=== PATIENT | male | born 1975 | race Hispanic/Latino ===

== ENCOUNTER 2018-03-11 18:42 | Inpatient (IN) | payer MEDICAID ==
[2018-03-11] MEDS ORDERED: NACL 0.9% 500 ML 500 ML IV ONE (19:15)
[2018-03-11 20:03] LABS: Hematocrit 32.8 % (35.5-45.6); Hemoglobin 10.9 gm/dl (11.8-15.2); Mean Corpuscular HGB Conc 33 % (32-34); Mean Corpuscular Volume 74 fl (84-94); Platelet Count 343 K/mm3 (140-440); Red Blood Count 4.46 M/mm3 (3.65-5.03)
[2018-03-11 20:12] LABS: Mean Corpuscular Hemoglobin 24 pg (28-32)
[2018-03-11 20:15] LABS: INR 1.03 (0.87-1.13)
--- NOTE | 2018-03-11 20:28 | Emergency Department Report ---
ED Fever HPI - General Chief Complaint: Fever Stated Complaint: FEVER Time Seen by Provider: 03/11/18 20:27 Source: patient Exam Limitations: no limitations - History of Present Illness Timing/Duration: this afternoon Fever Severity/Quality: greater than 100.5 F Associated Symptoms: cough ED Review of Systems ROS: Stated complaint: FEVER Other details as noted in HPI Comment: All other systems reviewed and negative Constitutional: denies: chills, fever Eyes: denies: eye pain, eye discharge, vision change ENT: denies: ear pain, throat pain Respiratory: denies: cough, shortness of breath, wheezing Cardiovascular: denies: chest pain, palpitations Endocrine: no symptoms reported Gastrointestinal: denies: abdominal pain, nausea, diarrhea Genitourinary: denies: urgency, dysuria Musculoskeletal: denies: back pain, joint swelling, arthralgia Skin: denies: rash, lesions Neurological: denies: headache, weakness, paresthesias Psychiatric: denies: anxiety, depression Hematological/Lymphatic: denies: easy bleeding, easy bruising ED Past Medical Hx - Past Medical History Hx Congestive Heart Failure: No Hx Diabetes: No Hx Liver Disease: Yes Hx Seizures: No Hx Asthma: No Hx COPD: No Hx Dementia: No Additional medical history: spine cancer, Chronic Wounds left leg, hips and sacrum - Surgical History Additional Surgical History: 3 back surg per pt. - Social History Smoking Status: Current Every Day Smoker - Medications Home Medications: Home Medications Medication Instructions Recorded Confirmed Last Taken Type Cyclobenzaprine [Flexeril] 10 mg PO 02/01/15 02/01/15 Unknown History Gabapentin [Neurontin] 300 mg PO BID 02/01/15 02/01/15 Unknown History Oxycodone HCl [Roxicodone TAB] 30 mg PO 02/01/15 02/01/15 Unknown History Oxycodone HCl/Acetaminophen 02/01/15 02/01/15 Unknown History [Percocet 10/325 mg] Ciprofloxacin HCl [Ciprofloxacin 500 mg PO Q12H #20 tab 02/27/18 Unknown Rx TAB] Clindamycin [Clindamycin CAP] 300 mg PO Q8H #30 cap 02/27/18 Unknown Rx Ondansetron [Zofran Odt] 4 mg PO Q8HR PRN #14 tab.rapdis 02/27/18 Unknown Rx traMADol [Ultram] 50 mg PO Q6HR PRN #14 tablet 02/27/18 Unknown Rx ED Physical Exam - General Limitations: No Limitations General appearance: alert, in no apparent distress - Head Head exam: Present: atraumatic, normocephalic - Eye Eye exam: Present: normal appearance - ENT ENT exam: Present: normal exam, mucous membranes moist - Neck Neck exam: Present: normal inspection - Respiratory Respiratory exam: Present: normal lung sounds bilaterally. Absent: respiratory distress - Cardiovascular Cardiovascular Exam: Present: regular rate, normal rhythm. Absent: systolic murmur, diastolic murmur, rubs, gallop - GI/Abdominal GI/Abdominal exam: Present: soft, normal bowel sounds - Rectal Rectal exam: Present: deferred - Extremities Exam Extremities exam: Present: normal inspection, other (Left foot ulcer.) - Back Exam Back exam: Present: normal inspection, other (Stage 3 sacral decubitus ulcer.) - Neurological Exam Neurological exam: Present: alert, oriented X3 - Psychiatric Psychiatric exam: Present: normal affect, normal mood - Skin Skin exam: Present: warm, dry, intact, normal color. Absent: rash ED Course Vital Signs 03/11/18 03/11/18 03/11/18 19:09 19:40 19:46 Temperature 101.3 F H Pulse Rate 109 H 110 H 75 Respiratory 24 22 19 Rate Blood Pressure 98/60 118/70 O2 Sat by Pulse 90 97 Oximetry 03/11/18 03/11/18 03/11/18 20:00 20:16 20:30 Temperature Pulse Rate 70 101 H 73 Respiratory 23 24 22 Rate Blood Pressure 126/73 118/70 132/77 O2 Sat by Pulse 100 97 99 Oximetry 03/11/18 03/11/18 03/11/18 20:46 21:00 21:16 Temperature Pulse Rate 93 H 93 H 97 H Respiratory 25 H 25 H 26 H Rate Blood Pressure 132/77 122/74 122/74 O2 Sat by Pulse 100 100 99 Oximetry 03/11/18 03/11/18 03/11/18 21:30 21:46 22:00 Temperature Pulse Rate 84 69 Respiratory Rate Blood Pressure 110/72 110/72 110/72 O2 Sat by Pulse 97 97 95 Oximetry 03/11/18 22:16 Temperature Pulse Rate 101 H Respiratory 14 Rate Blood Pressure 109/73 O2 Sat by Pulse 91 Oximetry ED Medical Decision Making - Lab Data Result diagrams: 03/11/18 19:40 03/11/18 19:40 Lab Results 03/11/18 03/11/18 03/11/18 Range/Units 19:40 19:40 19:40 WBC 7.1 (4.5-11.0) K/mm3 RBC 4.46 (3.65-5.03) M/mm3 Hgb 10.9 L (11.8-15.2) gm/dl Hct 32.8 L (35.5-45.6) % MCV 74 L (84-94) fl MCH 24 L (28-32) pg MCHC 33 (32-34) % RDW 18.0 H (13.2-15.2) % Plt Count 343 (140-440) K/mm3 Add Manual Diff Complete Total Counted 100 Seg Neuts % (Manual) 77.0 H (40.0-70.0) % Band Neutrophils % 0 % Lymphocytes % (Manual) 11.0 L (13.4-35.0) % Reactive Lymphs % (Man) 0 % Monocytes % (Manual) 12.0 H (0.0-7.3) % Eosinophils % (Manual) 0 (0.0-4.3) % Basophils % (Manual) 0 (0.0-1.8) % Metamyelocytes % 0 % Myelocytes % 0 % Promyelocytes % 0 % Blast Cells % 0 % Nucleated RBC % Not Reportable Seg Neutrophils # Man 5.5 (1.8-7.7) K/mm3 Band Neutrophils # 0.0 K/mm3 Lymphocytes # (Manual) 0.8 L (1.2-5.4) K/mm3 Abs React Lymphs (Man) 0.0 K/mm3 Monocytes # (Manual) 0.9 H (0.0-0.8) K/mm3 Eosinophils # (Manual) 0.0 (0.0-0.4) K/mm3 Basophils # (Manual) 0.0 (0.0-0.1) K/mm3 Metamyelocytes # 0.0 K/mm3 Myelocytes # 0.0 K/mm3 Promyelocytes # 0.0 K/mm3 Blast Cells # 0.0 K/mm3 WBC Morphology Not Reportable Hypersegmented Neuts Not Reportable Hyposegmented Neuts Not Reportable Hypogranular Neuts Not Reportable Smudge Cells Not Reportable Toxic Granulation Not Reportable Toxic Vacuolation Not Reportable Dohle Bodies Not Reportable Pelger-Huet Anomaly Not Reportable Jon Rods Not Reportable Platelet Estimate Not Reportable Clumped Platelets Not Reportable Plt Clumps, EDTA Not Reportable Large Platelets Not Reportable Giant Platelets Not Reportable Platelet Satelliting Not Reportable Plt Morphology Comment Not Reportable RBC Morphology Normal Dimorphic RBCs Not Reportable Polychromasia Not Reportable Hypochromasia Not Reportable Poikilocytosis Not Reportable Anisocytosis Not Reportable Microcytosis Not Reportable Macrocytosis Not Reportable Spherocytes Not Reportable Pappenheimer Bodies Not Reportable Sickle Cells Not Reportable Target Cells Not Reportable Tear Drop Cells Not Reportable Ovalocytes Not Reportable Helmet Cells Not Reportable [place] Bodies Not Reportable [place] Rings Not Reportable Ana Cells Not Reportable Bite Cells Not Reportable Crenated Cell Not Reportable Elliptocytes Not Reportable Acanthocytes (Spur) Not Reportable Rouleaux Not Reportable Hemoglobin C Crystals Not Reportable Schistocytes Not Reportable Malaria parasites Not Reportable Jamal Bodies Not Reportable Hem Pathologist Commnt No PT 13.9 (12.2-14.9) Sec. INR 1.03 (0.87-1.13) POC ABG pH (7.35-7.45) POC ABG pCO2 (35-45) POC ABG pO2 (80-105) POC ABG HCO3 POC ABG Total CO2 POC ABG O2 Sat POC ABG Base Excess VBG pH (7.320-7.420) FiO2 % Sodium 133 L (137-145) mmol/L Potassium 4.0 (3.6-5.0) mmol/L Chloride 99.1 (98-107) mmol/L Carbon Dioxide 20 L (22-30) mmol/L Anion Gap 18 mmol/L BUN 11 (9-20) mg/dL Creatinine 0.5 L (0.8-1.5) mg/dL Estimated GFR > 60 ml/min BUN/Creatinine Ratio 22 % Glucose 96 (75-100) mg/dL Lactic Acid (0.7-2.0) mmol/L Calcium 8.7 (8.4-10.2) mg/dL Total Bilirubin 0.20 (0.1-1.2) mg/dL AST 26 (5-40) units/L ALT 18 (7-56) units/L Alkaline Phosphatase 130 H (35-129) units/L Total Protein 7.5 (6.3-8.2) g/dL Albumin 3.6 L (3.9-5) g/dL Albumin/Globulin Ratio 0.9 % 03/11/18 03/11/18 03/11/18 Range/Units 19:40 19:40 22:52 WBC (4.5-11.0) K/mm3 RBC (3.65-5.03) M/mm3 Hgb (11.8-15.2) gm/dl Hct (35.5-45.6) % MCV (84-94) fl MCH (28-32) pg MCHC (32-34) % RDW (13.2-15.2) % Plt Count (140-440) K/mm3 Add Manual Diff Total Counted Seg Neuts % (Manual) (40.0-70.0) % Band Neutrophils % % Lymphocytes % (Manual) (13.4-35.0) % Reactive Lymphs % (Man) % Monocytes % (Manual) (0.0-7.3) % Eosinophils % (Manual) (0.0-4.3) % Basophils % (Manual) (0.0-1.8) % Metamyelocytes % % Myelocytes % % Promyelocytes % % Blast Cells % % Nucleated RBC % Seg Neutrophils # Man (1.8-7.7) K/mm3 Band Neutrophils # K/mm3 Lymphocytes # (Manual) (1.2-5.4) K/mm3 Abs React Lymphs (Man) K/mm3 Monocytes # (Manual) (0.0-0.8) K/mm3 Eosinophils # (Manual) (0.0-0.4) K/mm3 Basophils # (Manual) (0.0-0.1) K/mm3 Metamyelocytes # K/mm3 Myelocytes # K/mm3 Promyelocytes # K/mm3 Blast Cells # K/mm3 WBC Morphology Hypersegmented Neuts Hyposegmented Neuts Hypogranular Neuts Smudge Cells Toxic Granulation Toxic Vacuolation Dohle Bodies Pelger-Huet Anomaly Jon Rods Platelet Estimate Clumped Platelets Plt Clumps, EDTA Large Platelets Giant Platelets Platelet Satelliting Plt Morphology Comment RBC Morphology Dimorphic RBCs Polychromasia Hypochromasia Poikilocytosis Anisocytosis Microcytosis Macrocytosis Spherocytes Pappenheimer Bodies Sickle Cells Target Cells Tear Drop Cells Ovalocytes Helmet Cells [place] Bodies [place] Rings Ana Cells Bite Cells Crenated Cell Elliptocytes Acanthocytes (Spur) Rouleaux Hemoglobin C Crystals Schistocytes Malaria parasites Jamal Bodies Hem Pathologist Commnt PT (12.2-14.9) Sec. INR (0.87-1.13) POC ABG pH 7.303 L (7.35-7.45) POC ABG pCO2 31.3 L (35-45) POC ABG pO2 154 H (80-105) POC ABG HCO3 15.5 POC ABG Total CO2 16 POC ABG O2 Sat 99 POC ABG Base Excess -11 VBG pH 7.395 (7.320-7.420) FiO2 100 % Sodium (137-145) mmol/L Potassium (3.6-5.0) mmol/L Chloride (98-107) mmol/L Carbon Dioxide (22-30) mmol/L Anion Gap mmol/L BUN (9-20) mg/dL Creatinine (0.8-1.5) mg/dL Estimated GFR ml/min BUN/Creatinine Ratio % Glucose (75-100) mg/dL Lactic Acid 1.30 (0.7-2.0) mmol/L Calcium (8.4-10.2) mg/dL Total Bilirubin (0.1-1.2) mg/dL AST (5-40) units/L ALT (7-56) units/L Alkaline Phosphatase (35-129) units/L Total Protein (6.3-8.2) g/dL Albumin (3.9-5) g/dL Albumin/Globulin Ratio % - EKG Data -: EKG Interpreted by Wy EKG shows normal: sinus rhythm Rate: normal (93) - EKG Data When compared to previous EKG there are: previous EKG unavailable Interpretation: nonspecific ST-T wave osile 03/11/18 22:57 No STEMI. - Radiology Data Radiology results: report reviewed, image reviewed CXR is negative. Critical care attestation.: If time is entered above; I have spent that time in minutes in the direct care of this critically ill patient, excluding procedure time. 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
[2018-03-11 20:32] LABS: Alanine Aminotransferase 18 units/L (7-56); Albumin 3.6 g/dL (3.9-5); BUN/Creatinine Ratio 22; Blood Urea Nitrogen 11 mg/dL (9-20); Calcium 8.7 mg/dL (8.4-10.2); Hemolysis Index 26
[2018-03-11] MEDS ORDERED: NACL 0.9% 1000 ML 1,000 ML IV ONE ×2 (20:46)
[2018-03-11 20:56] LABS: Basophils % (Manual) 0 % (0.0-1.8); Eosinophils % (Manual) 0 % (0.0-4.3); Total Cells Counted 100
[2018-03-11 20:57] LABS: RBC Morphology Normal
[2018-03-11] MEDS ORDERED: ZOSYN/NS 3.375GM/50ML 3.375 GM/50 ML BAG IV ONE (21:00)
--- NOTE | 2018-03-11 21:20 | XRay Report ---
FINAL REPORT EXAM: XR CHEST 1V AP HISTORY: possible Sepsis TECHNIQUE: AP portable view of the chest. PRIORS: None. FINDINGS: The cardiomediastinal silhouette appears normal. The lungs are clear. The bones and soft tissues are unremarkable. IMPRESSION: No evidence of acute cardiopulmonary disease.
[2018-03-11] MEDS ORDERED: MORPHINE IV ONE (21:59)
[2018-03-11] MEDS ORDERED: VANCOMYCIN/NS 1 GM/250 ML 1 GM/250 ML BAG IV ONE (22:00)
[2018-03-11] MEDS ORDERED: ZOFRAN IV ONE (22:03)
[2018-03-11] MEDS ORDERED: ZOFRAN ONE (22:04)
[2018-03-11] MEDS ORDERED: MORPHINE ONE (22:05)
[2018-03-11] MEDS ORDERED: PROVENTIL IH ONE (22:55)
[2018-03-11] MEDS ORDERED: AMBIEN PO PRN (23:40)
[2018-03-11] MEDS ORDERED: SODIUM CHLORIDE FLUSH SYRINGE 10 ML IV PRN (23:40)
[2018-03-11] MEDS ORDERED: TYLENOL PO PRN (23:40)
[2018-03-11] MEDS ORDERED: ZOFRAN IV PRN (23:40)
--- NOTE | 2018-03-11 23:40 | XRay Report ---
FINAL REPORT EXAM: XR CHEST 1V AP HISTORY: dypnea and hypoxia TECHNIQUE: AP portable view of the chest. PRIORS: Chest x-ray performed earlier on the same day FINDINGS: The cardiomediastinal silhouette appears normal. The lungs are clear. The bones and soft tissues are unremarkable. IMPRESSION: No evidence of acute cardiopulmonary disease.
[2018-03-11] MEDS ORDERED: TORADOL IV PRN (23:45)
[2018-03-11] MEDS ORDERED: VANCOMYCIN PHARMACY TO DOSE IV SCH (23:45)
[2018-03-12] MEDS: ATROVENT IH SCH ×5 (00:20→21:53)
[2018-03-12] MEDS: XOPENEX IH SCH ×5 (00:21→21:53)
[2018-03-12 00:25] LABS: Bacteria,Urine 1+ /HPF (Negative); Bilirubin,Urine NEG (Negative); Blood,Urine SM (Negative); Color,Urine Yellow (Yellow); Hyaline Casts,Urine 7 /LPF; Mucus,Urine 3+ /HPF
--- NOTE | 2018-03-12 00:33 | History and Physical Report ---
History of Present Illness Date of examination: 03/11/18 Date of admission: 03/11/18 23:41 Chief complaint: Nausea and vomiting History of present illness: Patient is a 42 year old male with history of lymphoma and cirrhosis of the liver who presented to the ED on account of 2 days history of nausea and vomiting. He has associated generalized abdominal pain, dry cough, fever with chills, sore throat, runny nose, headaches and lightheadedness. He denies chest pain, palpitation, shortness of breath, leg swelling, orthopnea or PND. No syncope or loss of consciousness. No constipation or diarrhea. Patient has suprapubic catheter and no reported change in urine color. Past History Past Medical History: other (lymphoma status post radiation, cirrhosis of the liver, decubital ulcers, left heel ulcer, chronic hepatitis C and B virus infection) Past Surgical History: Other (back surgery, left foot surgery) Social history: no significant social history (he denies tobacco, alcohol or illicit drug use) Family history: no significant family history (reviewed and noncontributory) Medications and Allergies Allergies Allergy/AdvReac Type Severity Reaction Status Date / Time morphine AdvReac Rash Verified 08/03/14 12:12 shiitake mushroom AdvReac Swelling Verified 08/01/14 18:30 Home Medications Medication Instructions Recorded Confirmed Last Taken Type Cyclobenzaprine [Flexeril] 10 mg PO 02/01/15 02/01/15 Unknown History Gabapentin [Neurontin] 300 mg PO BID 02/01/15 02/01/15 Unknown History Oxycodone HCl [Roxicodone TAB] 30 mg PO 02/01/15 02/01/15 Unknown History Oxycodone HCl/Acetaminophen 02/01/15 02/01/15 Unknown History [Percocet 10/325 mg] Ciprofloxacin HCl [Ciprofloxacin 500 mg PO Q12H #20 tab 02/27/18 Unknown Rx TAB] Clindamycin [Clindamycin CAP] 300 mg PO Q8H #30 cap 02/27/18 Unknown Rx Ondansetron [Zofran Odt] 4 mg PO Q8HR PRN #14 tab.rapdis 02/27/18 Unknown Rx traMADol [Ultram] 50 mg PO Q6HR PRN #14 tablet 02/27/18 Unknown Rx Active Meds: Active Medications Acetaminophen (Tylenol) 650 mg PO Q4H PRN PRN Reason: Pain MILD(1-3)/Fever >100.5/MORGAN Enoxaparin Sodium (Lovenox) 40 mg SUB-Q QDAY [facility] Sodium Chloride (Nacl 0.9% 1000 Ml) 1,000 mls @ 125 mls/hr IV DIRECT VERENICE Piperacillin Sod/Tazobactam Sod (Zosyn/Ns 3.375gm/50ml) 3.375 gm in 50 mls @ 100 mls/hr IV Q8HR [facility]; Protocol Ipratropium [place] (Atrovent) 0.5 mg IH Q6HRT [facility] Last Admin: 03/12/18 00:20 Dose: Not Given Documented by: Ketorolac Tromethamine (Toradol) 15 mg IV Q6HR PRN PRN Reason: Pain , Severe (7-10) Stop: 03/16/18 23:44 Levalbuterol HCl (Xopenex) 0.63 mg IH Q6HRT [facility] Last Admin: 03/12/18 00:21 Dose: Not Given Documented by: Ondansetron HCl (Zofran) 4 mg IV Q8H PRN PRN Reason: Nausea And Vomiting Sodium Chloride (Sodium Chloride Flush Syringe 10 Ml) 10 ml IV BID VERENICE Sodium Chloride (Sodium Chloride Flush Syringe 10 Ml) 10 ml IV PRN PRN PRN Reason: LINE FLUSH Zolpidem Tartrate (Ambien) 5 mg PO QHS PRN PRN Reason: Insomnia Review of Systems All systems: negative (except as documented in the HPI, all other systems were reviewed and negative) Exam - Constitutional Vitals: Temp Pulse Resp BP Pulse Ox 101.3 F H 78 20 103/41 100 03/11/18 19:09 03/11/18 23:16 03/11/18 23:16 03/11/18 23:16 03/11/18 23:16 General appearance: Present: no acute distress - EENT Eyes: Present: PERRL, EOM intact ENT: hearing intact, clear oral mucosa - Neck Neck: Present: supple, normal ROM - Respiratory Respiratory effort: normal Respiratory: bilateral: diminished - Cardiovascular Rhythm: other (tachycardia with regular rhythm) Heart Sounds: Present: S1 & S2. Absent: rub, click - Extremities Extremity abnormal: other (contracted with his left heel draining ulcer) Peripheral Pulses: within normal limits - Abdominal General gastrointestinal: Present: soft, non-tender, non-distended, normal bowel sounds, other (suprapubic catheter noted with possible leakage) Male genitourinary: Present: deferred - Integumentary Integumentary: Present: erythema (stage IV decubital ulcers) - Psychiatric Psychiatric: appropriate mood/affect, intact judgment & insight - Neurologic Neurologic: other (patient is bed-ridden) Results - Labs CBC & Chem 7: 03/11/18 19:40 03/11/18 19:40 Labs: Laboratory Last Values WBC 7.1 K/mm3 (4.5-11.0) 03/11/18 19:40 RBC 4.46 M/mm3 (3.65-5.03) 03/11/18 19:40 Hgb 10.9 gm/dl (11.8-15.2) L 03/11/18 19:40 Hct 32.8 % (35.5-45.6) L 03/11/18 19:40 MCV 74 fl (84-94) L 03/11/18 19:40 MCH 24 pg (28-32) L 03/11/18 19:40 MCHC 33 % (32-34) 03/11/18 19:40 RDW 18.0 % (13.2-15.2) H 03/11/18 19:40 Plt Count 343 K/mm3 (140-440) 03/11/18 19:40 Add Manual Diff Complete 03/11/18 19:40 Total Counted 100 03/11/18 19:40 Seg Neuts % (Manual) 77.0 % (40.0-70.0) H 03/11/18 19:40 Band Neutrophils % 0 % 03/11/18 19:40 Lymphocytes % (Manual) 11.0 % (13.4-35.0) L 03/11/18 19:40 Reactive Lymphs % (Man) 0 % 03/11/18 19:40 Monocytes % (Manual) 12.0 % (0.0-7.3) H 03/11/18 19:40 Eosinophils % (Manual) 0 % (0.0-4.3) 03/11/18 19:40 Basophils % (Manual) 0 % (0.0-1.8) 03/11/18 19:40 Metamyelocytes % 0 % 03/11/18 19:40 Myelocytes % 0 % 03/11/18 19:40 Promyelocytes % 0 % 03/11/18 19:40 Blast Cells % 0 % 03/11/18 19:40 Nucleated RBC % Not Reportable 03/11/18 19:40 Seg Neutrophils # Man 5.5 K/mm3 (1.8-7.7) 03/11/18 19:40 Band Neutrophils # 0.0 K/mm3 03/11/18 19:40 Lymphocytes # (Manual) 0.8 K/mm3 (1.2-5.4) L 03/11/18 19:40 Abs React Lymphs (Man) 0.0 K/mm3 03/11/18 19:40 Monocytes # (Manual) 0.9 K/mm3 (0.0-0.8) H 03/11/18 19:40 Eosinophils # (Manual) 0.0 K/mm3 (0.0-0.4) 03/11/18 19:40 Basophils # (Manual) 0.0 K/mm3 (0.0-0.1) 03/11/18 19:40 Metamyelocytes # 0.0 K/mm3 03/11/18 19:40 Myelocytes # 0.0 K/mm3 03/11/18 19:40 Promyelocytes # 0.0 K/mm3 03/11/18 19:40 Blast Cells # 0.0 K/mm3 03/11/18 19:40 WBC Morphology Not Reportable 03/11/18 19:40 Hypersegmented Neuts Not Reportable 03/11/18 19:40 Hyposegmented Neuts Not Reportable 03/11/18 19:40 Hypogranular Neuts Not Reportable 03/11/18 19:40 Smudge Cells Not Reportable 03/11/18 19:40 Toxic Granulation Not Reportable 03/11/18 19:40 Toxic Vacuolation Not Reportable 03/11/18 19:40 Dohle Bodies Not Reportable 03/11/18 19:40 Pelger-Huet Anomaly Not Reportable 03/11/18 19:40 Jon Rods Not Reportable 03/11/18 19:40 Platelet Estimate Not Reportable 03/11/18 19:40 Clumped Platelets Not Reportable 03/11/18 19:40 Plt Clumps, EDTA Not Reportable 03/11/18 19:40 Large Platelets Not Reportable 03/11/18 19:40 Giant Platelets Not Reportable 03/11/18 19:40 Platelet Satelliting Not Reportable 03/11/18 19:40 Plt Morphology Comment Not Reportable 03/11/18 19:40 RBC Morphology Normal 03/11/18 19:40 Dimorphic RBCs Not Reportable 03/11/18 19:40 Polychromasia Not Reportable 03/11/18 19:40 Hypochromasia Not Reportable 03/11/18 19:40 Poikilocytosis Not Reportable 03/11/18 19:40 Anisocytosis Not Reportable 03/11/18 19:40 Microcytosis Not Reportable 03/11/18 19:40 Macrocytosis Not Reportable 03/11/18 19:40 Spherocytes Not Reportable 03/11/18 19:40 Pappenheimer Bodies Not Reportable 03/11/18 19:40 Sickle Cells Not Reportable 03/11/18 19:40 Target Cells Not Reportable 03/11/18 19:40 Tear Drop Cells Not Reportable 03/11/18 19:40 Ovalocytes Not Reportable 03/11/18 19:40 Helmet Cells Not Reportable 03/11/18 19:40 Jones-[place] Bodies Not Reportable 03/11/18 19:40 [place] Rings Not Reportable 03/11/18 19:40 Ana Cells Not Reportable 03/11/18 19:40 Bite Cells Not Reportable 03/11/18 19:40 Crenated Cell Not Reportable 03/11/18 19:40 Elliptocytes Not Reportable 03/11/18 19:40 Acanthocytes (Spur) Not Reportable 03/11/18 19:40 Rouleaux Not Reportable 03/11/18 19:40 Hemoglobin C Crystals Not Reportable 03/11/18 19:40 Schistocytes Not Reportable 03/11/18 19:40 Malaria parasites Not Reportable 03/11/18 19:40 Jamal Bodies Not Reportable 03/11/18 19:40 Hem Pathologist Commnt No 03/11/18 19:40 PT 13.9 Sec. (12.2-14.9) 03/11/18 19:40 INR 1.03 (0.87-1.13) 03/11/18 19:40 POC ABG pH 7.303 (7.35-7.45) L 03/11/18 22:52 POC ABG pCO2 31.3 (35-45) L 03/11/18 22:52 POC ABG pO2 154 (80-105) H 03/11/18 22:52 POC ABG HCO3 15.5 03/11/18 22:52 POC ABG Total CO2 16 03/11/18 22:52 POC ABG O2 Sat 99 03/11/18 22:52 POC ABG Base Excess -11 03/11/18 22:52 VBG pH 7.395 (7.320-7.420) 03/11/18 19:40 FiO2 100 % 03/11/18 22:52 Sodium 133 mmol/L (137-145) L 03/11/18 19:40 Potassium 4.0 mmol/L (3.6-5.0) 03/11/18 19:40 Chloride 99.1 mmol/L (98-107) 03/11/18 19:40 Carbon Dioxide 20 mmol/L (22-30) L 03/11/18 19:40 Anion Gap 18 mmol/L 03/11/18 19:40 BUN 11 mg/dL (9-20) 03/11/18 19:40 Creatinine 0.5 mg/dL (0.8-1.5) L 03/11/18 19:40 Estimated GFR > 60 ml/min 03/11/18 19:40 BUN/Creatinine Ratio 22 % 03/11/18 19:40 Glucose 96 mg/dL (75-100) 03/11/18 19:40 Lactic Acid 1.50 mmol/L (0.7-2.0) 03/11/18 23:21 Calcium 8.7 mg/dL (8.4-10.2) 03/11/18 19:40 Total Bilirubin 0.20 mg/dL (0.1-1.2) 03/11/18 19:40 AST 26 units/L (5-40) 03/11/18 19:40 ALT 18 units/L (7-56) 03/11/18 19:40 Alkaline Phosphatase 130 units/L (35-129) H 03/11/18 19:40 Total Protein 7.5 g/dL (6.3-8.2) 03/11/18 19:40 Albumin 3.6 g/dL (3.9-5) L 03/11/18 19:40 Albumin/Globulin Ratio 0.9 % 03/11/18 19:40 Urine Color Yellow (Yellow) 03/11/18 23:53 Urine Turbidity Cloudy (Clear) 03/11/18 23:53 Urine pH 5.0 (5.0-7.0) 03/11/18 23:53 Ur Specific [place] 1.027 (1.003-1.030) 03/11/18 23:53 Urine Protein 100 mg/dl mg/dL (Negative) 03/11/18 23:53 Urine Glucose (UA) Neg mg/dL (Negative) 03/11/18 23:53 Urine Ketones Tr mg/dL (Negative) 03/11/18 23:53 Urine Blood Sm (Negative) 03/11/18 23:53 Urine Nitrite Neg (Negative) 03/11/18 23:53 Urine Bilirubin Neg (Negative) 03/11/18 23:53 Urine Urobilinogen 2.0 mg/dL (<2.0) 03/11/18 23:53 Ur Leukocyte Esterase Lg (Negative) 03/11/18 23:53 Urine WBC (Auto) 128.0 /HPF (0.0-6.0) H 03/11/18 23:53 Urine RBC (Auto) 63.0 /HPF (0.0-6.0) 03/11/18 23:53 U Epithel Cells (Auto) < 1.0 /HPF (0-13.0) 03/11/18 23:53 Urine Bacteria (Auto) 1+ /HPF (Negative) 03/11/18 23:53 Hyaline Casts 7 /LPF 03/11/18 23:53 Urine Mucus 3+ /HPF 03/11/18 23:53 Urine Yeast (Budding) 3+ /HPF 03/11/18 23:53 Assessment and Plan Assessment and plan: Sepsis probably secondary to infected decubitus and Left heel ulcers versus UTI -Sepsis protocol -IV antibiotics with vancomycin and Zosyn -Follow up blood, urine and wound culture results Stage IV decubitus ulcers and left heel ulcer -wound care nurse consult Acute bronchitis -Antibiotic and duonebs -F/u influenza screen Hyponatremia -On IV fluid, will monitor sodium level Metabolic acidosis -We'll hydrate patient and monitor his bicarbonate level Chronic microcytic anemia -H/H stable Lymphoma status post radiation -Hospice care recommended 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
[2018-03-12] MEDS: NACL 0.9% 1000 ML 1,000 ML IV SCH ×2 (02:49→13:09)
[2018-03-12 05:54] LABS: Basophils % (Auto) 1.1 % (0.0-1.8); Eosinophils % (Auto) 0.3 % (0.0-4.3); Hematocrit 29.8 % (35.5-45.6); Hemoglobin 9.6 gm/dl (11.8-15.2); Lymphocytes # (Auto) 0.6 K/mm3 (1.2-5.4); Lymphocytes % (Auto) 16.3 % (13.4-35.0); Mean Corpuscular HGB Conc 32 % (32-34); Mean Corpuscular Volume 74 fl (84-94); Monocytes # (Auto) 0.6 K/mm3 (0.0-0.8); Monocytes % (Auto) 14.7 % (0.0-7.3); Platelet Count 275 K/mm3 (140-440); Red Blood Count 4.02 M/mm3 (3.65-5.03); Red Cell Distribution Width 18.1 % (13.2-15.2)
[2018-03-12 05:58] LABS: Mean Corpuscular Hemoglobin 24 pg (28-32)
[2018-03-12] MEDS ORDERED: ZOSYN/NS 3.375GM/50ML 3.375 GM/50 ML BAG IV SCH (06:00)
[2018-03-12 06:16] LABS: BUN/Creatinine Ratio 20; Blood Urea Nitrogen 12 mg/dL (9-20); Calcium 7.9 mg/dL (8.4-10.2); Hemolysis Index 6
[2018-03-12] MEDS: LOVENOX SUB-Q SCH (09:41)
[2018-03-12] MEDS: VANCOMYCIN/NS 1 GM/250 ML 1 GM/250 ML BAG IV SCH ×2 (09:42→22:53)
[2018-03-12] MEDS: SODIUM CHLORIDE FLUSH SYRINGE 10 ML IV SCH ×2 (09:43→22:54)
[2018-03-12] MEDS: NORCO 5/325 PO PRN ×2 (09:55→17:56)
[2018-03-12] MEDS: TAMIFLU PO SCH ×2 (13:21→22:54)
[2018-03-12] MEDS ORDERED: ZOSYN/NS 4.5GM/100ML 4.5 GM/100 ML VIAL IV SCH (14:00)
--- NOTE | 2018-03-12 15:08 | Progress Note ---
Assessment and Plan Assessment and plan: Admitted this morning: Patient is a 42 year old man with history of lymphoma and cirrhosis of the liver who presented to the ED on account of 2 days history of nausea and vomiting. He has associated generalized abdominal pain, dry cough, fever with chills, sore throat, runny nose, headaches and lightheadedness. He denies chest pain, palpitation, shortness of breath, leg swelling, orthopnea or PND. No syncope or loss of consciousness. No constipation or diarrhea. Patient has suprapubic catheter and no reported change in urine color. Sepsis probably secondary to infected decubitus and Left heel ulcers versus UTI -Sepsis protocol -IV antibiotics with vancomycin and Zosyn -Follow up blood, urine and wound culture results Hypotension, still seeking narcotics for pain give IVF Stage IV decubitus ulcers and left heel ulcer -wound care nurse consult Acute bronchitis -Antibiotic and duonebs -F/u influenza screen Hyponatremia -On IV fluid, will monitor sodium level Metabolic acidosis -We'll hydrate patient and monitor his bicarbonate level Chronic microcytic anemia -H/H stable Lymphoma status post radiation -Hospice care recommended 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 Follow-up on current diagnosis fevers. Overnight uneventful. Patient denies any chest pain, shortness breath, nausea/vomiting or severe headaches. Imaging, nursing note, chart, labs and old chart reviewed. Discussed with patient. Hospitalist Physical - Physical exam Narrative exam: Gen: thin frail, nad a/o x 3 HEENT: NCAT, EOMI, PERRL, OP Clear Neck: supple, no adenopathy, no thyromegaly, no JVD CVS/Heart: RRR, normal S1S2, pulses present bilaterally Chest/Lungs: CTA B, Symmetrical chest expansion, good air entry bilaterally GI/Abdomen: soft, NTND, good bowel sounds, no guarding or rebound /Bladder: no suprapubic tenderness, no CVA or paraspinal tenderness Extermity/Skin: multiple skin decubiti ulcers MSK: left contracted Neuro: CN 2-12 grossly intact, no new focal deficits, paraplegic Psych: calm - Constitutional Vitals: Temp Pulse Resp BP Pulse Ox 98.5 F 73 16 84/42 96 03/12/18 11:46 03/12/18 11:46 03/12/18 11:46 03/12/18 11:46 03/12/18 11:46 General appearance: Present: no acute distress Results - Labs CBC & Chem 7: 03/12/18 05:33 03/12/18 05:33 Labs: Laboratory Last Values WBC 3.9 K/mm3 (4.5-11.0) L 03/12/18 05:33 RBC 4.02 M/mm3 (3.65-5.03) 03/12/18 05:33 Hgb 9.6 gm/dl (11.8-15.2) L 03/12/18 05:33 Hct 29.8 % (35.5-45.6) L 03/12/18 05:33 MCV 74 fl (84-94) L 03/12/18 05:33 MCH 24 pg (28-32) L 03/12/18 05:33 MCHC 32 % (32-34) 03/12/18 05:33 RDW 18.1 % (13.2-15.2) H 03/12/18 05:33 Plt Count 275 K/mm3 (140-440) 03/12/18 05:33 Lymph % (Auto) 16.3 % (13.4-35.0) 03/12/18 05:33 [place] % (Auto) 14.7 % (0.0-7.3) H 03/12/18 05:33 Eos % (Auto) 0.3 % (0.0-4.3) 03/12/18 05:33 Baso % (Auto) 1.1 % (0.0-1.8) 03/12/18 05:33 Lymph # 0.6 K/mm3 (1.2-5.4) L 03/12/18 05:33 [place] # 0.6 K/mm3 (0.0-0.8) 03/12/18 05:33 Eos # 0.0 K/mm3 (0.0-0.4) 03/12/18 05:33 Baso # 0.0 K/mm3 (0.0-0.1) 03/12/18 05:33 Add Manual Diff Complete 03/11/18 19:40 Total Counted 100 03/11/18 19:40 Seg Neutrophils % 67.6 % (40.0-70.0) 03/12/18 05:33 Seg Neuts % (Manual) 77.0 % (40.0-70.0) H 03/11/18 19:40 Band Neutrophils % 0 % 03/11/18 19:40 Lymphocytes % (Manual) 11.0 % (13.4-35.0) L 03/11/18 19:40 Reactive Lymphs % (Man) 0 % 03/11/18 19:40 Monocytes % (Manual) 12.0 % (0.0-7.3) H 03/11/18 19:40 Eosinophils % (Manual) 0 % (0.0-4.3) 03/11/18 19:40 Basophils % (Manual) 0 % (0.0-1.8) 03/11/18 19:40 Metamyelocytes % 0 % 03/11/18 19:40 Myelocytes % 0 % 03/11/18 19:40 Promyelocytes % 0 % 03/11/18 19:40 Blast Cells % 0 % 03/11/18 19:40 Nucleated RBC % Not Reportable 03/11/18 19:40 Seg Neutrophils # 2.6 K/mm3 (1.8-7.7) 03/12/18 05:33 Seg Neutrophils # Man 5.5 K/mm3 (1.8-7.7) 03/11/18 19:40 Band Neutrophils # 0.0 K/mm3 03/11/18 19:40 Lymphocytes # (Manual) 0.8 K/mm3 (1.2-5.4) L 03/11/18 19:40 Abs React Lymphs (Man) 0.0 K/mm3 03/11/18 19:40 Monocytes # (Manual) 0.9 K/mm3 (0.0-0.8) H 03/11/18 19:40 Eosinophils # (Manual) 0.0 K/mm3 (0.0-0.4) 03/11/18 19:40 Basophils # (Manual) 0.0 K/mm3 (0.0-0.1) 03/11/18 19:40 Metamyelocytes # 0.0 K/mm3 03/11/18 19:40 Myelocytes # 0.0 K/mm3 03/11/18 19:40 Promyelocytes # 0.0 K/mm3 03/11/18 19:40 Blast Cells # 0.0 K/mm3 03/11/18 19:40 WBC Morphology Not Reportable 03/11/18 19:40 Hypersegmented Neuts Not Reportable 03/11/18 19:40 Hyposegmented Neuts Not Reportable 03/11/18 19:40 Hypogranular Neuts Not Reportable 03/11/18 19:40 Smudge Cells Not Reportable 03/11/18 19:40 Toxic Granulation Not Reportable 03/11/18 19:40 Toxic Vacuolation Not Reportable 03/11/18 19:40 Dohle Bodies Not Reportable 03/11/18 19:40 Pelger-Huet Anomaly Not Reportable 03/11/18 19:40 Jon Rods Not Reportable 03/11/18 19:40 Platelet Estimate Not Reportable 03/11/18 19:40 Clumped Platelets Not Reportable 03/11/18 19:40 Plt Clumps, EDTA Not Reportable 03/11/18 19:40 Large Platelets Not Reportable 03/11/18 19:40 Giant Platelets Not Reportable 03/11/18 19:40 Platelet Satelliting Not Reportable 03/11/18 19:40 Plt Morphology Comment Not Reportable 03/11/18 19:40 RBC Morphology Normal 03/11/18 19:40 Dimorphic RBCs Not Reportable 03/11/18 19:40 Polychromasia Not Reportable 03/11/18 19:40 Hypochromasia Not Reportable 03/11/18 19:40 Poikilocytosis Not Reportable 03/11/18 19:40 Anisocytosis Not Reportable 03/11/18 19:40 Microcytosis Not Reportable 03/11/18 19:40 Macrocytosis Not Reportable 03/11/18 19:40 Spherocytes Not Reportable 03/11/18 19:40 Pappenheimer Bodies Not Reportable 03/11/18 19:40 Sickle Cells Not Reportable 03/11/18 19:40 Target Cells Not Reportable 03/11/18 19:40 Tear Drop Cells Not Reportable 03/11/18 19:40 Ovalocytes Not Reportable 03/11/18 19:40 Helmet Cells Not Reportable 03/11/18 19:40 [place] Bodies Not Reportable 03/11/18 19:40 [place] Rings Not Reportable 03/11/18 19:40 [place] Cells Not Reportable 03/11/18 19:40 Bite Cells Not Reportable 03/11/18 19:40 Crenated Cell Not Reportable 03/11/18 19:40 Elliptocytes Not Reportable 03/11/18 19:40 Acanthocytes (Spur) Not Reportable 03/11/18 19:40 Rouleaux Not Reportable 03/11/18 19:40 Hemoglobin C Crystals Not Reportable 03/11/18 19:40 Schistocytes Not Reportable 03/11/18 19:40 Malaria parasites Not Reportable 03/11/18 19:40 Jamal Bodies Not Reportable 03/11/18 19:40 Hem Pathologist Commnt No 03/11/18 19:40 PT 13.9 Sec. (12.2-14.9) 03/11/18 19:40 INR 1.03 (0.87-1.13) 03/11/18 19:40 POC ABG pH 7.303 (7.35-7.45) L 03/11/18 22:52 POC ABG pCO2 31.3 (35-45) L 03/11/18 22:52 POC ABG pO2 154 (80-105) H 03/11/18 22:52 POC ABG HCO3 15.5 03/11/18 22:52 POC ABG Total CO2 16 03/11/18 22:52 POC ABG O2 Sat 99 03/11/18 22:52 POC ABG Base Excess -11 03/11/18 22:52 VBG pH 7.395 (7.320-7.420) 03/11/18 19:40 FiO2 100 % 03/11/18 22:52 Sodium 136 mmol/L (137-145) L 03/12/18 05:33 Potassium 3.8 mmol/L (3.6-5.0) 03/12/18 05:33 Chloride 103.1 mmol/L (98-107) 03/12/18 05:33 Carbon Dioxide 20 mmol/L (22-30) L 03/12/18 05:33 Anion Gap 17 mmol/L 03/12/18 05:33 BUN 12 mg/dL (9-20) 03/12/18 05:33 Creatinine 0.6 mg/dL (0.8-1.5) L 03/12/18 05:33 Estimated GFR > 60 ml/min 03/12/18 05:33 BUN/Creatinine Ratio 20 % 03/12/18 05:33 Glucose 121 mg/dL (75-100) H 03/12/18 05:33 Lactic Acid 1.50 mmol/L (0.7-2.0) 03/11/18 23:21 Calcium 7.9 mg/dL (8.4-10.2) L 03/12/18 05:33 Total Bilirubin 0.20 mg/dL (0.1-1.2) 03/11/18 19:40 AST 26 units/L (5-40) 03/11/18 19:40 ALT 18 units/L (7-56) 03/11/18 19:40 Alkaline Phosphatase 130 units/L (35-129) H 03/11/18 19:40 Total Protein 7.5 g/dL (6.3-8.2) 03/11/18 19:40 Albumin 3.6 g/dL (3.9-5) L 03/11/18 19:40 Albumin/Globulin Ratio 0.9 % 03/11/18 19:40 Urine Color Yellow (Yellow) 03/11/18 23:53 Urine Turbidity Cloudy (Clear) 03/11/18 23:53 Urine pH 5.0 (5.0-7.0) 03/11/18 23:53 Ur Specific [place] 1.027 (1.003-1.030) 03/11/18 23:53 Urine Protein 100 mg/dl mg/dL (Negative) 03/11/18 23:53 Urine Glucose (UA) Neg mg/dL (Negative) 03/11/18 23:53 Urine Ketones Tr mg/dL (Negative) 03/11/18 23:53 Urine Blood Sm (Negative) 03/11/18 23:53 Urine Nitrite Neg (Negative) 03/11/18 23:53 Urine Bilirubin Neg (Negative) 03/11/18 23:53 Urine Urobilinogen 2.0 mg/dL (<2.0) 03/11/18 23:53 Ur Leukocyte Esterase Lg (Negative) 03/11/18 23:53 Urine WBC (Auto) 128.0 /HPF (0.0-6.0) H 03/11/18 23:53 Urine RBC (Auto) 63.0 /HPF (0.0-6.0) 03/11/18 23:53 U Epithel Cells (Auto) < 1.0 /HPF (0-13.0) 03/11/18 23:53 Urine Bacteria (Auto) 1+ /HPF (Negative) 03/11/18 23:53 Hyaline Casts 7 /LPF 03/11/18 23:53 Urine Mucus 3+ /HPF 03/11/18 23:53 Urine Yeast (Budding) 3+ /HPF 03/11/18 23:53 Influenza A (Rapid) Positive (Negative) A 03/11/18 00:50 Influenza B (Rapid) Negative (Negative) 03/11/18 00:50 Nutrition/Malnutrition Assess - Dietary Evaluation Nutrition/Malnutrition Findings: Nutrition Notes Start: 03/12/18 12:46 Freq: Status: Active Protocol: Document 03/12/18 12:46 ELAN (Rec: 03/12/18 12:52 [facility] [email or web address] [email or web address]) Nutrition Notes 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 He reports good appetite; amenable to ONS for wound healing purposes and wt maintenance. Burn Absent Trauma Absent #1 Nutrition Diagnoses Increased nutrient needs ( specify in comment below) Comments: protein Etiology increased demands of wound healing As Evidenced by Signs and Symptoms pt with multiple decubitus ulcers Is patient on ventilator? No Is Patient Ambulatory and/or Out of Bed Yes REE-([place]-St. Jeor-ambulatory/OOB) [ NUTR.MSJOOB] Calculation Used for Recommendations [place]-St or Additional Notes Pro needs 1.25-1.5g/k- 103g/day Fluid needs 1ml/kcal Nutrition Intervention Change Diet Order: Continue current diet order Add Supplement/Snack (indicate name/kcal Ensure Enlive BID (chocolate) /protein ) + Kwan BID Provides kCal: 890 Provides Protein (gm) 45 Goal #1 PO intake of meals plus ONS to meet 90-100% nutrient needs Goal #2 Wound healing Anticipated Discharge Needs: Continue ONS daily for wound healing Follow-Up By: 03/16/18 Additional Comments F/U: intakes (meals/ONS)
[2018-03-12] MEDS ORDERED: NACL 0.9% 500 ML 500 ML IV ONE (15:23)
[2018-03-12] MEDS: ZOSYN/NS 4.5GM/100ML 4.5 GM/100 ML VIAL IV SCH (19:17)
[2018-03-13] MEDS: NACL 0.9% 1000 ML 1,000 ML IV SCH ×3 (02:03→19:11)
[2018-03-13] MEDS: ATROVENT IH SCH ×4 (03:36→20:22)
[2018-03-13] MEDS: XOPENEX IH SCH ×4 (03:36→20:22)
[2018-03-13] MEDS: ZOSYN/NS 4.5GM/100ML 4.5 GM/100 ML VIAL IV SCH ×3 (03:51→21:16)
[2018-03-13] MEDS: TAMIFLU PO SCH ×2 (10:00→23:18)
[2018-03-13] MEDS: DILAUDID IV PRN ×3 (10:01→23:16)
[2018-03-13] MEDS: LOVENOX SUB-Q SCH (10:07)
[2018-03-13] MEDS: SODIUM CHLORIDE FLUSH SYRINGE 10 ML IV SCH ×2 (10:07→23:18)
[2018-03-13] MEDS: VANCOMYCIN/NS 1 GM/250 ML 1 GM/250 ML BAG IV SCH ×2 (13:04→23:17)
--- NOTE | 2018-03-13 14:47 | Progress Note ---
Assessment and Plan Assessment and plan: Patient is a 42 year old man with history of lymphoma and cirrhosis of the liver who presented to the ED on account of 2 days history of nausea and vomiting. He has associated generalized abdominal pain, dry cough, fever with chills, sore throat, runny nose, headaches and lightheadedness. Patient has suprapubic catheter and no reported change in urine color. -The patient is in litigation with [employer], and therefore is unable to get hospice services or home health services, is also lost to follow-up, does not have a PCP or oncologist at this time Sepsis probably secondary to infected decubitus and Left heel ulcers versus UTI -Sepsis protocol -IV antibiotics with vancomycin and Zosyn -Follow up blood, urine and wound culture results Infected Stage I decubitus ulcer of sacrum and left heel, stage II decubitus ulcer of left buttock and right ischium -wound care nurse consult, continue antibiotics Acute bronchitis/ influenza A positive -Antibiotic and duonebs -Continue Tamiflu Hyponatremia/ Received normal saline Metabolic acidosis -Due to sepsis, treat underlying cause Chronic microcytic anemia -H/H stable Lymphoma status post radiation -Hospice care recommended, patient needs to establish with a new PCP who can hopefully refer him, we have not been able to find hospice [employer] or home health company that we'll take him on due to current litigation with another [employer] 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 -For outpatient follow-up DVT prophylaxis with Lovenox Disposition: continue inpatient status History Interval history: Review of systems Constitutional: No fevers, no malaise, no joint pains CVS: No chest pain, no orthopnea, no dyspnea on exertion, no pedal edema GI: No abdominal pain, no diarrhea, no vomiting, no constipation Respiratory: No shortness of breath, no wheezing, no coughing Hospitalist Physical - Physical exam Narrative exam: General.: Appears well, no distress, nontoxic HEENT: Moist mucous membranes, extraocular muscles intact, no lymphadenopathy Neck: supple Cardiac: S1-S2 heard Lungs: clear to auscultation bilaterally Abdomen: soft , nontender, nondistended, bowel sounds positive Extremities: no edema clubbing or cyanosis Skin: Multiple stage II decubitus ulcers on sacrum which measures 7 x 7, left heel 4 x 3, left buttocks 6 x 2.5 x 1 which is a stage II, right ischium 5 x 3 x 1 which is also a stage II, there is no foul smell Neurologic: no gross focal deficits Psych: appropriate behavior, appropriate mood, corporative, judgment intact - Constitutional Vitals: Temp Pulse Resp BP Pulse Ox 99.0 F 68 20 92/54 97 03/13/18 11:17 03/13/18 11:17 03/13/18 11:17 03/13/18 11:17 03/13/18 11:17 General appearance: Present: no acute distress Results - Labs CBC & Chem 7: 03/12/18 05:33 03/12/18 05:33 Labs: Laboratory Last Values WBC 3.9 K/mm3 (4.5-11.0) L 03/12/18 05:33 RBC 4.02 M/mm3 (3.65-5.03) 03/12/18 05:33 Hgb 9.6 gm/dl (11.8-15.2) L 03/12/18 05:33 Hct 29.8 % (35.5-45.6) L 03/12/18 05:33 MCV 74 fl (84-94) L 03/12/18 05:33 MCH 24 pg (28-32) L 03/12/18 05:33 MCHC 32 % (32-34) 03/12/18 05:33 RDW 18.1 % (13.2-15.2) H 03/12/18 05:33 Plt Count 275 K/mm3 (140-440) 03/12/18 05:33 Lymph % (Auto) 16.3 % (13.4-35.0) 03/12/18 05:33 [place] % (Auto) 14.7 % (0.0-7.3) H 03/12/18 05:33 Eos % (Auto) 0.3 % (0.0-4.3) 03/12/18 05:33 Baso % (Auto) 1.1 % (0.0-1.8) 03/12/18 05:33 Lymph # 0.6 K/mm3 (1.2-5.4) L 03/12/18 05:33 [place] # 0.6 K/mm3 (0.0-0.8) 03/12/18 05:33 Eos # 0.0 K/mm3 (0.0-0.4) 03/12/18 05:33 Baso # 0.0 K/mm3 (0.0-0.1) 03/12/18 05:33 Add Manual Diff Complete 03/11/18 19:40 Total Counted 100 03/11/18 19:40 Seg Neutrophils % 67.6 % (40.0-70.0) 03/12/18 05:33 Seg Neuts % (Manual) 77.0 % (40.0-70.0) H 03/11/18 19:40 Band Neutrophils % 0 % 03/11/18 19:40 Lymphocytes % (Manual) 11.0 % (13.4-35.0) L 03/11/18 19:40 Reactive Lymphs % (Man) 0 % 03/11/18 19:40 Monocytes % (Manual) 12.0 % (0.0-7.3) H 03/11/18 19:40 Eosinophils % (Manual) 0 % (0.0-4.3) 03/11/18 19:40 Basophils % (Manual) 0 % (0.0-1.8) 03/11/18 19:40 Metamyelocytes % 0 % 03/11/18 19:40 Myelocytes % 0 % 03/11/18 19:40 Promyelocytes % 0 % 03/11/18 19:40 Blast Cells % 0 % 03/11/18 19:40 Nucleated RBC % Not Reportable 03/11/18 19:40 Seg Neutrophils # 2.6 K/mm3 (1.8-7.7) 03/12/18 05:33 Seg Neutrophils # Man 5.5 K/mm3 (1.8-7.7) 03/11/18 19:40 Band Neutrophils # 0.0 K/mm3 03/11/18 19:40 Lymphocytes # (Manual) 0.8 K/mm3 (1.2-5.4) L 03/11/18 19:40 Abs React Lymphs (Man) 0.0 K/mm3 03/11/18 19:40 Monocytes # (Manual) 0.9 K/mm3 (0.0-0.8) H 03/11/18 19:40 Eosinophils # (Manual) 0.0 K/mm3 (0.0-0.4) 03/11/18 19:40 Basophils # (Manual) 0.0 K/mm3 (0.0-0.1) 03/11/18 19:40 Metamyelocytes # 0.0 K/mm3 03/11/18 19:40 Myelocytes # 0.0 K/mm3 03/11/18 19:40 Promyelocytes # 0.0 K/mm3 03/11/18 19:40 Blast Cells # 0.0 K/mm3 03/11/18 19:40 WBC Morphology Not Reportable 03/11/18 19:40 Hypersegmented Neuts Not Reportable 03/11/18 19:40 Hyposegmented Neuts Not Reportable 03/11/18 19:40 Hypogranular Neuts Not Reportable 03/11/18 19:40 Smudge Cells Not Reportable 03/11/18 19:40 Toxic Granulation Not Reportable 03/11/18 19:40 Toxic Vacuolation Not Reportable 03/11/18 19:40 Dohle Bodies Not Reportable 03/11/18 19:40 Pelger-Huet Anomaly Not Reportable 03/11/18 19:40 Jon Rods Not Reportable 03/11/18 19:40 Platelet Estimate Not Reportable 03/11/18 19:40 Clumped Platelets Not Reportable 03/11/18 19:40 Plt Clumps, EDTA Not Reportable 03/11/18 19:40 Large Platelets Not Reportable 03/11/18 19:40 Giant Platelets Not Reportable 03/11/18 19:40 Platelet Satelliting Not Reportable 03/11/18 19:40 Plt Morphology Comment Not Reportable 03/11/18 19:40 RBC Morphology Normal 03/11/18 19:40 Dimorphic RBCs Not Reportable 03/11/18 19:40 Polychromasia Not Reportable 03/11/18 19:40 Hypochromasia Not Reportable 03/11/18 19:40 Poikilocytosis Not Reportable 03/11/18 19:40 Anisocytosis Not Reportable 03/11/18 19:40 Microcytosis Not Reportable 03/11/18 19:40 Macrocytosis Not Reportable 03/11/18 19:40 Spherocytes Not Reportable 03/11/18 19:40 Pappenheimer Bodies Not Reportable 03/11/18 19:40 Sickle Cells Not Reportable 03/11/18 19:40 Target Cells Not Reportable 03/11/18 19:40 Tear Drop Cells Not Reportable 03/11/18 19:40 Ovalocytes Not Reportable 03/11/18 19:40 Helmet Cells Not Reportable 03/11/18 19:40 [place] Bodies Not Reportable 03/11/18 19:40 [place] Rings Not Reportable 03/11/18 19:40 [place] Cells Not Reportable 03/11/18 19:40 Bite Cells Not Reportable 03/11/18 19:40 Crenated Cell Not Reportable 03/11/18 19:40 Elliptocytes Not Reportable 03/11/18 19:40 Acanthocytes (Spur) Not Reportable 03/11/18 19:40 Rouleaux Not Reportable 03/11/18 19:40 Hemoglobin C Crystals Not Reportable 03/11/18 19:40 Schistocytes Not Reportable 03/11/18 19:40 Malaria parasites Not Reportable 03/11/18 19:40 Jamal Bodies Not Reportable 03/11/18 19:40 Hem Pathologist Commnt No 03/11/18 19:40 PT 13.9 Sec. (12.2-14.9) 03/11/18 19:40 INR 1.03 (0.87-1.13) 03/11/18 19:40 POC ABG pH 7.303 (7.35-7.45) L 03/11/18 22:52 POC ABG pCO2 31.3 (35-45) L 03/11/18 22:52 POC ABG pO2 154 (80-105) H 03/11/18 22:52 POC ABG HCO3 15.5 03/11/18 22:52 POC ABG Total CO2 16 03/11/18 22:52 POC ABG O2 Sat 99 03/11/18 22:52 POC ABG Base Excess -11 03/11/18 22:52 VBG pH 7.395 (7.320-7.420) 03/11/18 19:40 FiO2 100 % 03/11/18 22:52 Sodium 136 mmol/L (137-145) L 03/12/18 05:33 Potassium 3.8 mmol/L (3.6-5.0) 03/12/18 05:33 Chloride 103.1 mmol/L (98-107) 03/12/18 05:33 Carbon Dioxide 20 mmol/L (22-30) L 03/12/18 05:33 Anion Gap 17 mmol/L 03/12/18 05:33 BUN 12 mg/dL (9-20) 03/12/18 05:33 Creatinine 0.6 mg/dL (0.8-1.5) L 03/12/18 05:33 Estimated GFR > 60 ml/min 03/12/18 05:33 BUN/Creatinine Ratio 20 % 03/12/18 05:33 Glucose 121 mg/dL (75-100) H 03/12/18 05:33 Lactic Acid 1.50 mmol/L (0.7-2.0) 03/11/18 23:21 Calcium 7.9 mg/dL (8.4-10.2) L 03/12/18 05:33 Total Bilirubin 0.20 mg/dL (0.1-1.2) 03/11/18 19:40 AST 26 units/L (5-40) 03/11/18 19:40 ALT 18 units/L (7-56) 03/11/18 19:40 Alkaline Phosphatase 130 units/L (35-129) H 03/11/18 19:40 Total Protein 7.5 g/dL (6.3-8.2) 03/11/18 19:40 Albumin 3.6 g/dL (3.9-5) L 03/11/18 19:40 Albumin/Globulin Ratio 0.9 % 03/11/18 19:40 Urine Color Yellow (Yellow) 03/11/18 23:53 Urine Turbidity Cloudy (Clear) 03/11/18 23:53 Urine pH 5.0 (5.0-7.0) 03/11/18 23:53 Ur Specific [place] 1.027 (1.003-1.030) 03/11/18 23:53 Urine Protein 100 mg/dl mg/dL (Negative) 03/11/18 23:53 Urine Glucose (UA) Neg mg/dL (Negative) 03/11/18 23:53 Urine Ketones Tr mg/dL (Negative) 03/11/18 23:53 Urine Blood Sm (Negative) 03/11/18 23:53 Urine Nitrite Neg (Negative) 03/11/18 23:53 Urine Bilirubin Neg (Negative) 03/11/18 23:53 Urine Urobilinogen 2.0 mg/dL (<2.0) 03/11/18 23:53 Ur Leukocyte Esterase Lg (Negative) 03/11/18 23:53 Urine WBC (Auto) 128.0 /HPF (0.0-6.0) H 03/11/18 23:53 Urine RBC (Auto) 63.0 /HPF (0.0-6.0) 03/11/18 23:53 U Epithel Cells (Auto) < 1.0 /HPF (0-13.0) 03/11/18 23:53 Urine Bacteria (Auto) 1+ /HPF (Negative) 03/11/18 23:53 Hyaline Casts 7 /LPF 03/11/18 23:53 Urine Mucus 3+ /HPF 03/11/18 23:53 Urine Yeast (Budding) 3+ /HPF 03/11/18 23:53 Influenza A (Rapid) Positive (Negative) A 03/11/18 00:50 Influenza B (Rapid) Negative (Negative) 03/11/18 00:50 Nutrition/Malnutrition Assess - Dietary Evaluation Nutrition/Malnutrition Findings: Nutrition Notes Start: 03/12/18 12:46 Freq: Status: Active Protocol: Document 03/12/18 12:46 ELAN (Rec: 03/12/18 12:52 [facility] [email or web address]) Nutrition 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 He reports good appetite; amenable to ONS for wound healing purposes and wt maintenance. Burn Absent Trauma Absent #1 Nutrition Diagnoses Increased nutrient needs ( specify in comment below) Comments: protein Etiology increased demands of wound healing As Evidenced by Signs and Symptoms pt with multiple decubitus ulcers Is patient on ventilator? No Is Patient Ambulatory and/or Out of Bed Yes REE-([place]-St. Jeor-ambulatory/OOB) [ NUTR.[email or web address]] Calculation Used for Recommendations Ruma Amador Additional Notes Pro needs 1.25-1.5g/k- 103g/day Fluid needs 1ml/kcal Nutrition Intervention Change Diet Order: Continue current diet order Add Supplement/Snack (indicate name/kcal Ensure Enlive BID (chocolate) /protein ) + Kwan BID Provides kCal: 890 Provides Protein (gm) 45 Goal #1 PO intake of meals plus ONS to meet 90-100% nutrient needs Goal #2 Wound healing Anticipated Discharge Needs: Continue ONS daily for wound healing Follow-Up By: 03/16/18 Additional Comments F/U: intakes (meals/ONS)
[2018-03-14] MEDS: XOPENEX IH SCH ×4 (03:23→20:20)
[2018-03-14] MEDS: ATROVENT IH SCH ×4 (03:23→20:20)
[2018-03-14] MEDS: ZOSYN/NS 4.5GM/100ML 4.5 GM/100 ML VIAL IV SCH ×3 (03:42→19:14)
[2018-03-14] MEDS: DILAUDID IV PRN ×5 (03:44→22:36)
[2018-03-14] MEDS: NACL 0.9% 1000 ML 1,000 ML IV SCH ×2 (05:32→18:53)
[2018-03-14] MEDS: SODIUM CHLORIDE FLUSH SYRINGE 10 ML IV SCH ×2 (09:44→21:14)
[2018-03-14] MEDS: TAMIFLU PO SCH ×2 (09:44→21:14)
[2018-03-14] MEDS: LOVENOX SUB-Q SCH (09:44)
[2018-03-14] MEDS: VANCOMYCIN/NS 1 GM/250 ML 1 GM/250 ML BAG IV SCH (13:28)
--- NOTE | 2018-03-14 14:04 | Progress Note ---
Assessment and Plan Assessment and plan: Patient is a 42 year old man with history of lymphoma and cirrhosis of the liver who presented to the ED on account of 2 days history of nausea and vomiting. He has associated generalized abdominal pain, dry cough, fever with chills, sore throat, runny nose, headaches and lightheadedness. Patient has suprapubic catheter and no reported change in urine color. -The patient is in litigation with [facility], and therefore is unable to get hospice services or home health services, is also lost to follow-up, does not have a PCP or oncologist at this time Sepsis probably secondary to infected decubitus and Left heel ulcers versus UTI -Sepsis protocol -IV antibiotics with vancomycin and Zosyn -Follow up blood, urine and wound culture results Infected Stage I decubitus ulcer of sacrum and left heel, stage II decubitus ulcer of left buttock and right ischium -wound care nurse consult, continue antibiotics Acute bronchitis/ influenza A positive -Antibiotic and duonebs -Continue Tamiflu Hyponatremia/ Received normal saline Metabolic acidosis -Due to sepsis, treat underlying cause Chronic microcytic anemia -H/H stable Lymphoma status post radiation -Hospice care recommended, patient needs to establish with a new PCP who can hopefully refer him, we have not been able to find hospice [employer] or home health company that we'll take him on due to current litigation with another [facility] 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 -For outpatient follow-up DVT prophylaxis with Lovenox Disposition: continue inpatient status History Interval history: Review of systems Constitutional: No fevers, no malaise, no joint pains CVS: No chest pain, no orthopnea, no dyspnea on exertion, no pedal edema GI: No abdominal pain, no diarrhea, no vomiting, no constipation Respiratory: No shortness of breath, no wheezing, no coughing Hospitalist Physical - Physical exam Narrative exam: General.: Appears well, no distress, nontoxic HEENT: Moist mucous membranes, extraocular muscles intact, no lymphadenopathy Neck: supple Cardiac: S1-S2 heard Lungs: clear to auscultation bilaterally Abdomen: soft , nontender, nondistended, bowel sounds positive Extremities: no edema clubbing or cyanosis Skin: Multiple stage II decubitus ulcers on sacrum which measures 7 x 7, left heel 4 x 3, left buttocks 6 x 2.5 x 1 which is a stage II, right ischium 5 x 3 x 1 which is also a stage II, there is no foul smell Neurologic: no gross focal deficits Psych: appropriate behavior, appropriate mood, corporative, judgment intact - Constitutional Vitals: Temp Pulse Resp BP Pulse Ox 98.8 F 56 L 20 94/61 95 03/14/18 11:04 03/14/18 13:57 03/14/18 13:57 03/14/18 11:04 03/14/18 11:04 General appearance: Present: no acute distress Results - Labs CBC & Chem 7: 03/12/18 05:33 03/12/18 05:33 Labs: Laboratory Last Values WBC 3.9 K/mm3 (4.5-11.0) L 03/12/18 05:33 RBC 4.02 M/mm3 (3.65-5.03) 03/12/18 05:33 Hgb 9.6 gm/dl (11.8-15.2) L 03/12/18 05:33 Hct 29.8 % (35.5-45.6) L 03/12/18 05:33 MCV 74 fl (84-94) L 03/12/18 05:33 MCH 24 pg (28-32) L 03/12/18 05:33 MCHC 32 % (32-34) 03/12/18 05:33 RDW 18.1 % (13.2-15.2) H 03/12/18 05:33 Plt Count 275 K/mm3 (140-440) 03/12/18 05:33 Lymph % (Auto) 16.3 % (13.4-35.0) 03/12/18 05:33 [place] % (Auto) 14.7 % (0.0-7.3) H 03/12/18 05:33 Eos % (Auto) 0.3 % (0.0-4.3) 03/12/18 05:33 Baso % (Auto) 1.1 % (0.0-1.8) 03/12/18 05:33 Lymph # 0.6 K/mm3 (1.2-5.4) L 03/12/18 05:33 [place] # 0.6 K/mm3 (0.0-0.8) 03/12/18 05:33 Eos # 0.0 K/mm3 (0.0-0.4) 03/12/18 05:33 Baso # 0.0 K/mm3 (0.0-0.1) 03/12/18 05:33 Add Manual Diff Complete 03/11/18 19:40 Total Counted 100 03/11/18 19:40 Seg Neutrophils % 67.6 % (40.0-70.0) 03/12/18 05:33 Seg Neuts % (Manual) 77.0 % (40.0-70.0) H 03/11/18 19:40 Band Neutrophils % 0 % 03/11/18 19:40 Lymphocytes % (Manual) 11.0 % (13.4-35.0) L 03/11/18 19:40 Reactive Lymphs % (Man) 0 % 03/11/18 19:40 Monocytes % (Manual) 12.0 % (0.0-7.3) H 03/11/18 19:40 Eosinophils % (Manual) 0 % (0.0-4.3) 03/11/18 19:40 Basophils % (Manual) 0 % (0.0-1.8) 03/11/18 19:40 Metamyelocytes % 0 % 03/11/18 19:40 Myelocytes % 0 % 03/11/18 19:40 Promyelocytes % 0 % 03/11/18 19:40 Blast Cells % 0 % 03/11/18 19:40 Nucleated RBC % Not Reportable 03/11/18 19:40 Seg Neutrophils # 2.6 K/mm3 (1.8-7.7) 03/12/18 05:33 Seg Neutrophils # Man 5.5 K/mm3 (1.8-7.7) 03/11/18 19:40 Band Neutrophils # 0.0 K/mm3 03/11/18 19:40 Lymphocytes # (Manual) 0.8 K/mm3 (1.2-5.4) L 03/11/18 19:40 Abs React Lymphs (Man) 0.0 K/mm3 03/11/18 19:40 Monocytes # (Manual) 0.9 K/mm3 (0.0-0.8) H 03/11/18 19:40 Eosinophils # (Manual) 0.0 K/mm3 (0.0-0.4) 03/11/18 19:40 Basophils # (Manual) 0.0 K/mm3 (0.0-0.1) 03/11/18 19:40 Metamyelocytes # 0.0 K/mm3 03/11/18 19:40 Myelocytes # 0.0 K/mm3 03/11/18 19:40 Promyelocytes # 0.0 K/mm3 03/11/18 19:40 Blast Cells # 0.0 K/mm3 03/11/18 19:40 WBC Morphology Not Reportable 03/11/18 19:40 Hypersegmented Neuts Not Reportable 03/11/18 19:40 Hyposegmented Neuts Not Reportable 03/11/18 19:40 Hypogranular Neuts Not Reportable 03/11/18 19:40 Smudge Cells Not Reportable 03/11/18 19:40 Toxic Granulation Not Reportable 03/11/18 19:40 Toxic Vacuolation Not Reportable 03/11/18 19:40 Dohle Bodies Not Reportable 03/11/18 19:40 Pelger-Huet Anomaly Not Reportable 03/11/18 19:40 Jon Rods Not Reportable 03/11/18 19:40 Platelet Estimate Not Reportable 03/11/18 19:40 Clumped Platelets Not Reportable 03/11/18 19:40 Plt Clumps, EDTA Not Reportable 03/11/18 19:40 Large Platelets Not Reportable 03/11/18 19:40 Giant Platelets Not Reportable 03/11/18 19:40 Platelet Satelliting Not Reportable 03/11/18 19:40 Plt Morphology Comment Not Reportable 03/11/18 19:40 RBC Morphology Normal 03/11/18 19:40 Dimorphic RBCs Not Reportable 03/11/18 19:40 Polychromasia Not Reportable 03/11/18 19:40 Hypochromasia Not Reportable 03/11/18 19:40 Poikilocytosis Not Reportable 03/11/18 19:40 Anisocytosis Not Reportable 03/11/18 19:40 Microcytosis Not Reportable 03/11/18 19:40 Macrocytosis Not Reportable 03/11/18 19:40 Spherocytes Not Reportable 03/11/18 19:40 Pappenheimer Bodies Not Reportable 03/11/18 19:40 Sickle Cells Not Reportable 03/11/18 19:40 Target Cells Not Reportable 03/11/18 19:40 Tear Drop Cells Not Reportable 03/11/18 19:40 Ovalocytes Not Reportable 03/11/18 19:40 Helmet Cells Not Reportable 03/11/18 19:40 [place] Bodies Not Reportable 03/11/18 19:40 [place] Rings Not Reportable 03/11/18 19:40 [place] Cells Not Reportable 03/11/18 19:40 Bite Cells Not Reportable 03/11/18 19:40 Crenated Cell Not Reportable 03/11/18 19:40 Elliptocytes Not Reportable 03/11/18 19:40 Acanthocytes (Spur) Not Reportable 03/11/18 19:40 Rouleaux Not Reportable 03/11/18 19:40 Hemoglobin C Crystals Not Reportable 03/11/18 19:40 Schistocytes Not Reportable 03/11/18 19:40 Malaria parasites Not Reportable 03/11/18 19:40 Jamal Bodies Not Reportable 03/11/18 19:40 Hem Pathologist Commnt No 03/11/18 19:40 PT 13.9 Sec. (12.2-14.9) 03/11/18 19:40 INR 1.03 (0.87-1.13) 03/11/18 19:40 POC ABG pH 7.303 (7.35-7.45) L 03/11/18 22:52 POC ABG pCO2 31.3 (35-45) L 03/11/18 22:52 POC ABG pO2 154 (80-105) H 03/11/18 22:52 POC ABG HCO3 15.5 03/11/18 22:52 POC ABG Total CO2 16 03/11/18 22:52 POC ABG O2 Sat 99 03/11/18 22:52 POC ABG Base Excess -11 03/11/18 22:52 VBG pH 7.395 (7.320-7.420) 03/11/18 19:40 FiO2 100 % 03/11/18 22:52 Sodium 136 mmol/L (137-145) L 03/12/18 05:33 Potassium 3.8 mmol/L (3.6-5.0) 03/12/18 05:33 Chloride 103.1 mmol/L (98-107) 03/12/18 05:33 Carbon Dioxide 20 mmol/L (22-30) L 03/12/18 05:33 Anion Gap 17 mmol/L 03/12/18 05:33 BUN 12 mg/dL (9-20) 03/12/18 05:33 Creatinine 0.6 mg/dL (0.8-1.5) L 03/12/18 05:33 Estimated GFR > 60 ml/min 03/12/18 05:33 BUN/Creatinine Ratio 20 % 03/12/18 05:33 Glucose 121 mg/dL (75-100) H 03/12/18 05:33 Lactic Acid 1.50 mmol/L (0.7-2.0) 03/11/18 23:21 Calcium 7.9 mg/dL (8.4-10.2) L 03/12/18 05:33 Total Bilirubin 0.20 mg/dL (0.1-1.2) 03/11/18 19:40 AST 26 units/L (5-40) 03/11/18 19:40 ALT 18 units/L (7-56) 03/11/18 19:40 Alkaline Phosphatase 130 units/L (35-129) H 03/11/18 19:40 Total Protein 7.5 g/dL (6.3-8.2) 03/11/18 19:40 Albumin 3.6 g/dL (3.9-5) L 03/11/18 19:40 Albumin/Globulin Ratio 0.9 % 03/11/18 19:40 Urine Color Yellow (Yellow) 03/11/18 23:53 Urine Turbidity Cloudy (Clear) 03/11/18 23:53 Urine pH 5.0 (5.0-7.0) 03/11/18 23:53 Ur Specific [place] 1.027 (1.003-1.030) 03/11/18 23:53 Urine Protein 100 mg/dl mg/dL (Negative) 03/11/18 23:53 Urine Glucose (UA) Neg mg/dL (Negative) 03/11/18 23:53 Urine Ketones Tr mg/dL (Negative) 03/11/18 23:53 Urine Blood Sm (Negative) 03/11/18 23:53 Urine Nitrite Neg (Negative) 03/11/18 23:53 Urine Bilirubin Neg (Negative) 03/11/18 23:53 Urine Urobilinogen 2.0 mg/dL (<2.0) 03/11/18 23:53 Ur Leukocyte Esterase Lg (Negative) 03/11/18 23:53 Urine WBC (Auto) 128.0 /HPF (0.0-6.0) H 03/11/18 23:53 Urine RBC (Auto) 63.0 /HPF (0.0-6.0) 03/11/18 23:53 U Epithel Cells (Auto) < 1.0 /HPF (0-13.0) 03/11/18 23:53 Urine Bacteria (Auto) 1+ /HPF (Negative) 03/11/18 23:53 Hyaline Casts 7 /LPF 03/11/18 23:53 Urine Mucus 3+ /HPF 03/11/18 23:53 Urine Yeast (Budding) 3+ /HPF 03/11/18 23:53 Vancomycin Trough 9.1 ug/mL (5.0-20.0) 03/14/18 09:21 Influenza A (Rapid) Positive (Negative) A 03/11/18 00:50 Influenza B (Rapid) Negative (Negative) 03/11/18 00:50 Nutrition/Malnutrition Assess - Dietary Evaluation Nutrition/Malnutrition Findings: Nutrition Notes Start: 03/12/18 12:46 Freq: Status: Active Protocol: Document 03/12/18 12:46 ELAN (Rec: 03/12/18 12:52 ELAN [email or web address]) Nutrition Notes Need for Assessment generated from: engagement mgr Initial or Follow up Assessment Current Diagnoses Sepsis Other Pertinent Diagnosis PMHx: Lymphoma, Liver cirrhosis, multiple decubitus ulcers Current Diet Regular Labs/Tests reviewed Medications reviewed Height 5 ft 9 in Weight 68.5 kg Usual Body Weight 72.7 kg [place] Body Weight (lbs) 160.0 BMI 22.3 Weight change and time frame Pt reports unintentional 5.8% wt loss over past yr Weight Status Appropriate Subjective/Other Information Pt screened for skin risk ( Clem score unavailable). He reports good appetite; amenable to ONS for wound healing purposes and wt maintenance. Burn Absent Trauma Absent #1 Nutrition Diagnoses Increased nutrient needs ( specify in comment below) Comments: protein Etiology increased demands of wound healing As Evidenced by Signs and Symptoms pt with multiple decubitus ulcers Is patient on ventilator? No Is Patient Ambulatory and/or Out of Bed Yes REE-([place]-ambulatory/OOB) [ 2034.994 [id number]] Calculation [facility] Additional Notes Pro needs 1.25-1.5g/k- 103g/day Fluid needs 1ml/kcal Nutrition Intervention Change Diet Order: Continue current diet order Add Supplement/Snack (indicate name/kcal Ensure Enlive BID (chocolate) /protein ) + Kwan BID Provides kCal: 890 Provides Protein (gm) 45 Goal #1 PO intake of meals plus ONS to meet 90-100% nutrient needs Goal #2 Wound healing Anticipated Discharge Needs: Continue ONS daily for wound healing Follow-Up By: 03/16/18 Additional Comments F/U: intakes (meals/ONS)
[2018-03-15] MEDS: VANCOMYCIN 1,250 MG in NACL 0.9% 250ML 250 ML IV SCH ×2 (01:22→16:46)
[2018-03-15] MEDS: ATROVENT IH SCH ×4 (01:48→20:12)
[2018-03-15] MEDS: XOPENEX IH SCH ×4 (01:48→20:12)
[2018-03-15] MEDS: ZOSYN/NS 4.5GM/100ML 4.5 GM/100 ML VIAL IV SCH ×2 (04:13→11:49)
[2018-03-15] MEDS: NACL 0.9% 1000 ML 1,000 ML IV SCH ×2 (04:14→16:46)
[2018-03-15] MEDS: DILAUDID IV PRN ×4 (04:25→20:31)
[2018-03-15] MEDS: LOVENOX SUB-Q SCH (11:50)
[2018-03-15] MEDS: SODIUM CHLORIDE FLUSH SYRINGE 10 ML IV SCH (11:50)
[2018-03-15] MEDS: TAMIFLU PO SCH (11:50)
--- NOTE | 2018-03-15 14:58 | Progress Note ---
Assessment and Plan Assessment and plan: Patient is a 42 year old man with history of lymphoma and cirrhosis of the liver who presented to the ED on account of 2 days history of nausea and vomiting. He has associated generalized abdominal pain, dry cough, fever with chills, sore throat, runny nose, headaches and lightheadedness. Patient has suprapubic catheter and no reported change in urine color. -The patient is in litigation with [employer], and therefore is unable to get hospice services or home health services, is also lost to follow-up, does not have a PCP or oncologist at this time Sepsis probably secondary to infected decubitus and Left heel ulcers and UTI -Sepsis protocol -IV antibiotics with vancomycin and Zosyn -Urine culture drain pseudomonas, wound cultures growing Klebsiella and Pseudomonas. Continue antibiotics, ID consulted Infected Stage I decubitus ulcer of sacrum and left heel, stage II decubitus ulcer of left buttock and right ischium -wound care nurse consult, continue antibiotics Acute bronchitis/ influenza A positive -Antibiotic and duonebs -Continue Tamiflu Hyponatremia/ Received normal saline Metabolic acidosis -Due to sepsis, treat underlying cause Chronic microcytic anemia -H/H stable Lymphoma status post radiation -Hospice care recommended, patient needs to establish with a new PCP who can hopefully refer him, we have not been able to find hospice [employer] or home health company that we'll take him on due to current litigation with another hospice [employer] 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 -For outpatient follow-up DVT prophylaxis with Lovenox Disposition: continue inpatient status History Interval history: Review of systems Constitutional: No fevers, no malaise, no joint pains CVS: No chest pain, no orthopnea, no dyspnea on exertion, no pedal edema GI: No abdominal pain, no diarrhea, no vomiting, no constipation Respiratory: No shortness of breath, no wheezing, no coughing Hospitalist Physical - Physical exam Narrative exam: General.: Appears well, no distress, nontoxic HEENT: Moist mucous membranes, extraocular muscles intact, no lymphadenopathy Neck: supple Cardiac: S1-S2 heard Lungs: clear to auscultation bilaterally Abdomen: soft , nontender, nondistended, bowel sounds positive Extremities: no edema clubbing or cyanosis Skin: Multiple stage II decubitus ulcers on sacrum which measures 7 x 7, left heel 4 x 3, left buttocks 6 x 2.5 x 1 which is a stage II, right ischium 5 x 3 x 1 which is also a stage II, there is no foul smell Neurologic: no gross focal deficits Psych: appropriate behavior, appropriate mood, corporative, judgment intact - Constitutional Vitals: Temp Pulse Resp BP Pulse Ox 98.1 F 62 18 94/55 96 03/15/18 06:08 03/15/18 13:18 03/15/18 13:18 03/15/18 06:25 03/15/18 06:08 General appearance: Present: no acute distress Results - Labs CBC & Chem 7: 03/12/18 05:33 03/12/18 05:33 Labs: Laboratory Last Values WBC 3.9 K/mm3 (4.5-11.0) L 03/12/18 05:33 RBC 4.02 M/mm3 (3.65-5.03) 03/12/18 05:33 Hgb 9.6 gm/dl (11.8-15.2) L 03/12/18 05:33 Hct 29.8 % (35.5-45.6) L 03/12/18 05:33 MCV 74 fl (84-94) L 03/12/18 05:33 MCH 24 pg (28-32) L 03/12/18 05:33 MCHC 32 % (32-34) 03/12/18 05:33 RDW 18.1 % (13.2-15.2) H 03/12/18 05:33 Plt Count 275 K/mm3 (140-440) 03/12/18 05:33 Lymph % (Auto) 16.3 % (13.4-35.0) 03/12/18 05:33 [place] % (Auto) 14.7 % (0.0-7.3) H 03/12/18 05:33 Eos % (Auto) 0.3 % (0.0-4.3) 03/12/18 05:33 Baso % (Auto) 1.1 % (0.0-1.8) 03/12/18 05:33 Lymph # 0.6 K/mm3 (1.2-5.4) L 03/12/18 05:33 [place] # 0.6 K/mm3 (0.0-0.8) 03/12/18 05:33 Eos # 0.0 K/mm3 (0.0-0.4) 03/12/18 05:33 Baso # 0.0 K/mm3 (0.0-0.1) 03/12/18 05:33 Add Manual Diff Complete 03/11/18 19:40 Total Counted 100 03/11/18 19:40 Seg Neutrophils % 67.6 % (40.0-70.0) 03/12/18 05:33 Seg Neuts % (Manual) 77.0 % (40.0-70.0) H 03/11/18 19:40 Band Neutrophils % 0 % 03/11/18 19:40 Lymphocytes % (Manual) 11.0 % (13.4-35.0) L 03/11/18 19:40 Reactive Lymphs % (Man) 0 % 03/11/18 19:40 Monocytes % (Manual) 12.0 % (0.0-7.3) H 03/11/18 19:40 Eosinophils % (Manual) 0 % (0.0-4.3) 03/11/18 19:40 Basophils % (Manual) 0 % (0.0-1.8) 03/11/18 19:40 Metamyelocytes % 0 % 03/11/18 19:40 Myelocytes % 0 % 03/11/18 19:40 Promyelocytes % 0 % 03/11/18 19:40 Blast Cells % 0 % 03/11/18 19:40 Nucleated RBC % Not Reportable 03/11/18 19:40 Seg Neutrophils # 2.6 K/mm3 (1.8-7.7) 03/12/18 05:33 Seg Neutrophils # Man 5.5 K/mm3 (1.8-7.7) 03/11/18 19:40 Band Neutrophils # 0.0 K/mm3 03/11/18 19:40 Lymphocytes # (Manual) 0.8 K/mm3 (1.2-5.4) L 03/11/18 19:40 Abs React Lymphs (Man) 0.0 K/mm3 03/11/18 19:40 Monocytes # (Manual) 0.9 K/mm3 (0.0-0.8) H 03/11/18 19:40 Eosinophils # (Manual) 0.0 K/mm3 (0.0-0.4) 03/11/18 19:40 Basophils # (Manual) 0.0 K/mm3 (0.0-0.1) 03/11/18 19:40 Metamyelocytes # 0.0 K/mm3 03/11/18 19:40 Myelocytes # 0.0 K/mm3 03/11/18 19:40 Promyelocytes # 0.0 K/mm3 03/11/18 19:40 Blast Cells # 0.0 K/mm3 03/11/18 19:40 WBC Morphology Not Reportable 03/11/18 19:40 Hypersegmented Neuts Not Reportable 03/11/18 19:40 Hyposegmented Neuts Not Reportable 03/11/18 19:40 Hypogranular Neuts Not Reportable 03/11/18 19:40 Smudge Cells Not Reportable 03/11/18 19:40 Toxic Granulation Not Reportable 03/11/18 19:40 Toxic Vacuolation Not Reportable 03/11/18 19:40 Dohle Bodies Not Reportable 03/11/18 19:40 Pelger-Huet Anomaly Not Reportable 03/11/18 19:40 Jon Rods Not Reportable 03/11/18 19:40 Platelet Estimate Not Reportable 03/11/18 19:40 Clumped Platelets Not Reportable 03/11/18 19:40 Plt Clumps, EDTA Not Reportable 03/11/18 19:40 Large Platelets Not Reportable 03/11/18 19:40 Giant Platelets Not Reportable 03/11/18 19:40 Platelet Satelliting Not Reportable 03/11/18 19:40 Plt Morphology Comment Not Reportable 03/11/18 19:40 RBC Morphology Normal 03/11/18 19:40 Dimorphic RBCs Not Reportable 03/11/18 19:40 Polychromasia Not Reportable 03/11/18 19:40 Hypochromasia Not Reportable 03/11/18 19:40 Poikilocytosis Not Reportable 03/11/18 19:40 Anisocytosis Not Reportable 03/11/18 19:40 Microcytosis Not Reportable 03/11/18 19:40 Macrocytosis Not Reportable 03/11/18 19:40 Spherocytes Not Reportable 03/11/18 19:40 Pappenheimer Bodies Not Reportable 03/11/18 19:40 Sickle Cells Not Reportable 03/11/18 19:40 Target Cells Not Reportable 03/11/18 19:40 Tear Drop Cells Not Reportable 03/11/18 19:40 Ovalocytes Not Reportable 03/11/18 19:40 Helmet Cells Not Reportable 03/11/18 19:40 [place] Bodies Not Reportable 03/11/18 19:40 [place] Rings Not Reportable 03/11/18 19:40 [place] Cells Not Reportable 03/11/18 19:40 Bite Cells Not Reportable 03/11/18 19:40 Crenated Cell Not Reportable 03/11/18 19:40 Elliptocytes Not Reportable 03/11/18 19:40 Acanthocytes (Spur) Not Reportable 03/11/18 19:40 Rouleaux Not Reportable 03/11/18 19:40 Hemoglobin C Crystals Not Reportable 03/11/18 19:40 Schistocytes Not Reportable 03/11/18 19:40 Malaria parasites Not Reportable 03/11/18 19:40 Jamal Bodies Not Reportable 03/11/18 19:40 Hem Pathologist Commnt No 03/11/18 19:40 PT 13.9 Sec. (12.2-14.9) 03/11/18 19:40 INR 1.03 (0.87-1.13) 03/11/18 19:40 POC ABG pH 7.303 (7.35-7.45) L 03/11/18 22:52 POC ABG pCO2 31.3 (35-45) L 03/11/18 22:52 POC ABG pO2 154 (80-105) H 03/11/18 22:52 POC ABG HCO3 15.5 03/11/18 22:52 POC ABG Total CO2 16 03/11/18 22:52 POC ABG O2 Sat 99 03/11/18 22:52 POC ABG Base Excess -11 03/11/18 22:52 VBG pH 7.395 (7.320-7.420) 03/11/18 19:40 FiO2 100 % 03/11/18 22:52 Sodium 136 mmol/L (137-145) L 03/12/18 05:33 Potassium 3.8 mmol/L (3.6-5.0) 03/12/18 05:33 Chloride 103.1 mmol/L (98-107) 03/12/18 05:33 Carbon Dioxide 20 mmol/L (22-30) L 03/12/18 05:33 Anion Gap 17 mmol/L 03/12/18 05:33 BUN 12 mg/dL (9-20) 03/12/18 05:33 Creatinine 0.6 mg/dL (0.8-1.5) L 03/12/18 05:33 Estimated GFR > 60 ml/min 03/12/18 05:33 BUN/Creatinine Ratio 20 % 03/12/18 05:33 Glucose 121 mg/dL (75-100) H 03/12/18 05:33 Lactic Acid 1.50 mmol/L (0.7-2.0) 03/11/18 23:21 Calcium 7.9 mg/dL (8.4-10.2) L 03/12/18 05:33 Total Bilirubin 0.20 mg/dL (0.1-1.2) 03/11/18 19:40 AST 26 units/L (5-40) 03/11/18 19:40 ALT 18 units/L (7-56) 03/11/18 19:40 Alkaline Phosphatase 130 units/L (35-129) H 03/11/18 19:40 Total Protein 7.5 g/dL (6.3-8.2) 03/11/18 19:40 Albumin 3.6 g/dL (3.9-5) L 03/11/18 19:40 Albumin/Globulin Ratio 0.9 % 03/11/18 19:40 Urine Color Yellow (Yellow) 03/11/18 23:53 Urine Turbidity Cloudy (Clear) 03/11/18 23:53 Urine pH 5.0 (5.0-7.0) 03/11/18 23:53 Ur Specific [place] 1.027 (1.003-1.030) 03/11/18 23:53 Urine Protein 100 mg/dl mg/dL (Negative) 03/11/18 23:53 Urine Glucose (UA) Neg mg/dL (Negative) 03/11/18 23:53 Urine Ketones Tr mg/dL (Negative) 03/11/18 23:53 Urine Blood Sm (Negative) 03/11/18 23:53 Urine Nitrite Neg (Negative) 03/11/18 23:53 Urine Bilirubin Neg (Negative) 03/11/18 23:53 Urine Urobilinogen 2.0 mg/dL (<2.0) 03/11/18 23:53 Ur Leukocyte Esterase Lg (Negative) 03/11/18 23:53 Urine WBC (Auto) 128.0 /HPF (0.0-6.0) H 03/11/18 23:53 Urine RBC (Auto) 63.0 /HPF (0.0-6.0) 03/11/18 23:53 U Epithel Cells (Auto) < 1.0 /HPF (0-13.0) 03/11/18 23:53 Urine Bacteria (Auto) 1+ /HPF (Negative) 03/11/18 23:53 Hyaline Casts 7 /LPF 03/11/18 23:53 Urine Mucus 3+ /HPF 03/11/18 23:53 Urine Yeast (Budding) 3+ /HPF 03/11/18 23:53 Vancomycin Trough 9.1 ug/mL (5.0-20.0) 03/14/18 09:21 Influenza A (Rapid) Positive (Negative) A 03/11/18 00:50 Influenza B (Rapid) Negative (Negative) 03/11/18 00:50 Nutrition/Malnutrition Assess - Dietary Evaluation Nutrition/Malnutrition Findings: Nutrition Notes Start: 03/12/18 12:46 Freq: Status: Active Protocol: Document 03/12/18 12:46 ELAN (Rec: 03/12/18 12:52 ELAN [email or web address]) Nutrition Notes Need for Assessment generated from: fleece tier Initial or Follow up Assessment Current Diagnoses Sepsis Other Pertinent Diagnosis PMHx: Lymphoma, Liver cirrhosis, multiple decubitus ulcers Current Diet Regular Labs/Tests reviewed Medications reviewed Height 5 ft 9 in Weight 68.5 kg Usual Body Weight 72.7 kg [place] Body Weight (lbs) 160.0 BMI 22.3 Weight change and time frame Pt reports unintentional 5.8% wt loss over past yr Weight Status Appropriate Subjective/Other Information Pt screened for skin risk ( Clem score unavailable). He reports good appetite; amenable to ONS for wound healing purposes and wt maintenance. Burn Absent Trauma Absent #1 Nutrition Diagnoses Increased nutrient needs ( specify in comment below) Comments: protein Etiology increased demands of wound healing As Evidenced by Signs and Symptoms pt with multiple decubitus ulcers Is patient on ventilator? No Is Patient Ambulatory and/or Out of Bed Yes REE-([place]-ambulatory/OOB) [ 2033.99 [email or web address]] Calculation Used for Recommendations [facility] Additional Notes Pro needs 1.25-1.5g/k- 103g/day Fluid needs 1ml/kcal Nutrition Intervention Change Diet Order: Continue current diet order Add Supplement/Snack (indicate name/kcal Ensure Enlive BID (chocolate) /protein ) + [place] BID Provides kCal: 890 Provides Protein (gm) 45 Goal #1 PO intake of meals plus ONS to meet 90-100% nutrient needs Goal #2 Wound healing Anticipated Discharge Needs: Continue ONS daily for wound healing Follow-Up By: 03/16/18 Additional Comments F/U: intakes (meals/ONS)
--- NOTE | 2018-03-15 17:19 | Consultation ---
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 On admission WBC 7.1, Creatinine 0.6, lactic acid 1.30, Temperature 101.3, HR 77, BP 109/73, U/A positive for UTI, Influenza A Positive,. Chest xray negative for opacities. Blood cultures were drawn and s how no growth thus far. Buttock wound cultures were positive for GPC and GNR's, Left foot cultures were positive for Pseudomonas. Staphyloccocus and GNR's. Deep wound cultures were positive for Pseudomonas and Staphylococcus. Urine culture is positive for Psuedomonas. Patient states that he has had multiple decubitus ulcers for years. He states that his mother changes all of his dressings. He does not have a professional wound care service at this time. Review of Systems: General: no fever,chills, nightsweats, unintentional weight change, or change in appetite Head: no headaches or injury Eyes: no changes in vision, eye pain, double vision Ears: no ear pain, ear discharge, ringing or hearing loss Nose: no nose bleeding, stuffiness Mouth & throat: no bleeding gums, no horseness, no dental problems, or swollen glands Neck: no pain, node enlargement/lumps, tyroid enlargement or tenderness Respiratory: + cough, wheezing, sputum, hemoptysis, pleuritic chest pain Cardiovascular: no chest pain, leg edema, cyanosis, MARIN, orthopnea Musculoskeletal: contractures of bilateral lower extremities. Gastrointestinal: + nausea, no vomiting Skin:: Multiple decubitus ulcers, + left heel ulceration Neurogical: no seizures, no headaches, + weakness Psychiatric: stable mood; no excessive anxiety, sadness or moodiness Past History Past Medical History: other (lymphoma status post radiation, cirrhosis of the liver, decubital ulcers, left heel ulcer, chronic hepatitis C and B virus infection) Past Surgical History: Other (back surgery, left foot surgery) Social history: no significant social history (he denies tobacco, alcohol or illicit drug use) Family history: no significant family history (reviewed and noncontributory) Medications and Allergies Allergies Allergy/AdvReac Type Severity Reaction Status Date / Time shiitake mushroom AdvReac Swelling Verified 08/01/14 18:30 Home Medications Medication Instructions Recorded Confirmed Last Taken Type HYDROcodone/APAP 5-325 [[place] 1 each PO Q4H PRN #30 tablet 03/15/18 Unknown Rx 5-325 mg TAB] Ondansetron [Zofran ODT TAB] 4 mg PO Q8HR PRN #30 tab.rapdis 03/15/18 Unknown Rx Oseltamivir [Tamiflu] 75 mg PO BID #3 capsule 03/15/18 Unknown Rx Active Meds: Active Medications Acetaminophen (Tylenol) 650 mg PO Q4H PRN PRN Reason: Pain MILD(1-3)/Fever >100.5/MORGAN Acetaminophen/Hydrocodone Bitart ([place] 5/325) 1 each PO Q4H PRN PRN Reason: Pain, Moderate (4-6) Last Admin: 03/12/18 17:56 Dose: 1 each Documented by: Enoxaparin Sodium (Lovenox) 40 mg SUB-Q QDAY [facility] Last Admin: 03/15/18 11:50 Dose: 40 mg Documented by: Hydromorphone HCl (Dilaudid) 0.5 mg IV Q3H PRN PRN Reason: Pain , Severe (7-10) Last Admin: 03/15/18 16:42 Dose: 0.5 mg Documented by: Sodium Chloride (Nacl 0.9% 1000 Ml) 1,000 mls @ 125 mls/hr IV DIRECT VERENICE Last Admin: 03/15/18 16:46 Dose: 125 mls/hr Documented by: Piperacillin Sod/Tazobactam Sod (Zosyn/Ns 4.5gm/100ml) 4.5 gm in 100 mls @ 200 mls/hr IV Q8H [facility] Last Admin: 03/15/18 11:49 Dose: 200 mls/hr Documented by: Vancomycin HCl 1,250 mg/ (Sodium Chloride) 275 mls @ 166.667 mls/hr IV Q12H VERENICE Last Admin: 03/15/18 16:46 Dose: 166.667 mls/hr Documented by: Ipratropium [place] (Atrovent) 0.5 mg IH Q6HRT [facility] Last Admin: 03/15/18 13:08 Dose: 0.5 mg Documented by: Levalbuterol HCl (Xopenex) 0.63 mg IH Q6HRT [facility] Last Admin: 03/15/18 13:08 Dose: 0.63 mg Documented by: Ondansetron HCl (Zofran) 4 mg IV Q8H PRN PRN Reason: Nausea And Vomiting Oseltamivir Phosphate (Tamiflu) 75 mg PO BID [facility] Stop: 03/16/18 22:01 Last Admin: 03/15/18 11:50 Dose: 75 mg Documented by: Sodium Chloride (Sodium Chloride Flush Syringe 10 Ml) 10 ml IV BID [facility] Last Admin: 03/15/18 11:50 Dose: 10 ml Documented by: Sodium Chloride (Sodium Chloride Flush Syringe 10 Ml) 10 ml IV PRN PRN PRN Reason: LINE FLUSH Zolpidem Tartrate (Ambien) 5 mg PO QHS PRN PRN Reason: Insomnia Physical Examination - Physical Exam Narrative exam: Constitutional: Alert, cooperative. No acute distress Head, Ears, Nose: Normocephalic, atraumatic. External ears, nose normal Eyes: Conjunctivae/corneas clear. No icterus. No ptosis. Neck: Supple, no meningeal signs Oral: dentition poor, no thrush Cardiovascular: S1, S2 normal. Respiratory: Good air entry, clear to auscultation bilaterally GI: Soft, non-tender; bowel sounds normal. No peritoneal signs Musculoskeletal: contractures of bilateral lower extremities Skin: Multiple decubitus ulcers times 4. Most of the wounds with granulation tissue, no evidence of surrounding cellulitis, left heel ulceration, minimal drainage, no odor, wrapped in dressing. Hem/Lymphatic: No palpable cervical or supraclavicular nodes. No lymphangitis Psych: Mood ok. Affect normal Neurological: Awake, alert, oriented. - Constitutional Vitals: Vital Signs Temp Pulse Resp BP Pulse Ox 98.1 F 62 18 94/55 96 03/15/18 06:08 03/15/18 13:18 03/15/18 13:18 03/15/18 06:25 03/15/18 06:08 Temperature -Last 24 Hours Temperature 98.1 F Temperature 98.4 F Results - Labs CBC & Chem 7: 03/12/18 05:33 03/12/18 05:33 Assessment and Plan Imagin03/11/18 Chest Xray : images reviewed. 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 Complete 5 days of tamiflu. No evidence of sepsis. 2. Multiple decubitus ulcers: patient with contractures of bilateral lower extremities. These are chronic wounds present for several years. His mother does his wound care. Most of the wounds with granulation tissue, no evidence of surrounding cellulitis. Positive cultures are reflective of colonization.. Recommend continued wound care upon discharge. No antibiotics needed. 3. Suprapubic catheter: currently one has been indwelling for 3 months and hasn't been changed. Recommend exchange. Asymptomatic. Already received Zosyn. Can be discontinued 4. Chronic Hepatitis B and C with cirrhosis: not on treatment. Recommend outpatient follow up. Recs: - discontinued antibiotics: Zosyn and Vancomycin - complete total 5 days of PO Tamiflu - continue wound care for decubiti, no evidence of superinfection. Positive cultures are reflective of colonization d/w Dr. Coni Newberry will be condominium association manager tomorrow, [facility] M: [phone] O:[phone]
--- NOTE | 2018-03-15 17:45 | Discharge Summary ---
Providers - Providers Date of Admission: 03/11/18 23:41 Attending physician: VASILIY MATOS MD 03/12/18 00:45 Consult to Wound/ET Nurse [CONS] Urgent Reason For Exam: wound eval 03/12/18 10:58 Consult to Case Management [CONS] Routine Services Needed at Discharge: Other Notified:: Paula If yes, spoke with:: yes/Paula Additional Physician Instructions: Home Hospice : spinal lymphoma, bedridden, multiple wounds 03/14/18 14:03 Consult to Physician [CONS] Routine Comment: Consulting Provider: JEIMY MCGINNIS Physician Instructions: Reason For Exam: lymphoma 03/14/18 19:10 Consult to Physician [CONS] Routine Comment: Consulting Provider: HITESH ASIF Physician Instructions: Reason For Exam: requesting suprapubic cath exchange 03/15/18 11:03 Consult to Physician [CONS] Routine Comment: Consulting Provider: MICHAEL ROSADO Physician Instructions: Reason For Exam: wound infection Primary care physician: DIRECTOR OF OCCUPATIONAL THERAPY Hospitalization Condition: Stable Hospital course: Patient is a 42 year old man with history of lymphoma and cirrhosis of the liver who presented to the ED on account of 2 days history of nausea and vomiting. He has associated generalized abdominal pain, dry cough, fever with chills, sore throat, runny nose, headaches and lightheadedness. Patient has suprapubic catheter and no reported change in urine color. -The patient is in litigation with [employer], and therefore is unable to get hospice services or home health services, is also lost to follow-up, does not have a PCP or oncologist at this time * he was treated with antibiotics, for suspected decubitus infections, but he was seen by infectious disease, and the wound did not appear infected, but were colonized. ID did not recommend any further antibiotics. he received wound care * He was diagnosed with influenza A, rx with Tamiflu. * He also received IV fluids, and he was given referrals for local PCPs in the area, who can hopefully refer him to a pain management clinic. * Multiple attempts were made to get him into hospice senior care health services, but all company contacted refused being that the patient is an active litigation with the [employer] at this time Diagnoses Sepsis Influenza A infection Multiple decubitus ulcers; Stage I decubitus ulcer of sacrum and left heel, stage II decubitus ulcer of left buttock and right ischium Hyponatremia/ Metabolic acidosis Chronic microcytic anemia Lymphoma status post radiation 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 Disposition: DC-01 TO HOME OR SELFCARE Time spent for discharge: 33 minutes Core Measure Documentation - Palliative Care Palliative Care/ Comfort Measures: Not Applicable - Core Measures Any of the following diagnoses?: none Exam - Physical Exam Narrative exam: General.: Appears well, no distress, nontoxic HEENT: Moist mucous membranes, extraocular muscles intact, no lymphadenopathy Neck: supple Cardiac: S1-S2 heard Lungs: clear to auscultation bilaterally Abdomen: soft , nontender, nondistended, bowel sounds positive Extremities: no edema clubbing or cyanosis Skin: Multiple stage II decubitus ulcers on sacrum which measures 7 x 7, left heel 4 x 3, left buttocks 6 x 2.5 x 1 which is a stage II, right ischium 5 x 3 x 1 which is also a stage II, there is no foul smell Neurologic: no gross focal deficits Psych: appropriate behavior, appropriate mood, corporative, judgment intact - Constitutional Vitals: Temp Pulse Resp BP Pulse Ox 98.1 F 62 18 94/55 96 03/15/18 06:08 03/15/18 13:18 03/15/18 13:18 03/15/18 06:25 03/15/18 06:08 Plan Follow up with: PRIMARY CARE, [Primary Care Provider] - 3-5 Days Prescriptions: HYDROcodone/APAP 5-325 [[place] 5-325 mg TAB] 1 each PO Q4H PRN #30 tablet PRN Reason: Pain, Moderate (4-6) Ondansetron [Zofran ODT TAB] 4 mg PO Q8HR PRN #30 tab.rapdis PRN Reason: Nausea And Vomiting Oseltamivir [Tamiflu] 75 mg PO BID #3 capsule
[2018-03-15 18:24] VITALS: BP 104/59
--- NOTE | 2018-03-15 18:24 | Event Note ---
Date: 03/15/[id number]
--- NOTE | 2018-03-16 01:45 | Consultation ---
REFERRING PHYSICIAN: Leticia Perry MD REASON FOR CONSULTATION: History of lymphoma. HISTORY OF PRESENT ILLNESS: I saw the patient, a 42-year-old male, in the medical floor. The patient says he has had lymphoma in the spine area, for which he received radiation. He also has a history of cirrhosis. For the lymphoma, he was treated at [facility]. He has not been to his oncologist for about 4-5 years. As per the information available, he was in hospice care and there is a litigation ongoing. He came to the hospital because of generalized abdominal discomfort, dry cough, fever with chills, sore throat, runny nose, headaches, and lightheadedness. He also has a history of decubitus ulcer. At this time, no fever, no headache. The patient denies any new lumps or bumps in lymph nodes. PAST MEDICAL HISTORY: As above, cirrhosis, decubitus ulcer, hepatitis B, and hepatitis C. PAST SURGICAL HISTORY: Back surgery and radiation. SOCIAL HISTORY: Not contributory. FAMILY HISTORY: Not contributory. ALLERGIES: MORPHINE. HOME MEDICATIONS: Include Neurontin, oxycodone, clindamycin. PHYSICAL EXAMINATION: VITAL SIGNS: Temperature 98.1, pulse 51, respirations 18, BP 94/55. GENERAL: Thin built male. HEENT: Mild pallor. No icterus. NECK: No neck lymph nodes. HEART: S1, S2. LUNGS: Clear to auscultation. ABDOMEN: Soft. EXTREMITIES: The patient has contracted legs. LABORATORY DATA: White cell 3.9, hemoglobin 9.6, MCV 74, platelets 275. Potassium 3.8, creatinine 0.6, calcium 7.9, bilirubin 0.2. ASSESSMENT AND PLAN: 1. History of lymphoma, details are not clear. The patient was treated at [facility]. He has not been to oncologist for 4-5 years. 2. Admitted and was treated for sepsis/infection. 3. History of bronchitis. 4. History of hyponatremia. 5. History of microcytosis. We will follow. 6. History of cirrhosis. 7. History of hepatitis B and hepatitis C. 8. The patient would need outpatient followup for evaluation for the lymphoma and anemia. The patient was in hospice. The details of this are not clear. He would need a followup of Radiology if he wants to pursue the lymphoma management. JOB# [id number] SARAH/VICENTE
[2018-03-16] MEDS ORDERED: ATROVENT IH SCH (08:00)
[2018-03-16] MEDS ORDERED: XOPENEX IH SCH (08:00)
== END 2018-03-15 20:57 | disposition home or self-care (01) | DRG 871 ==
LOC: ED 18:42 → 3A 23:41
PROVIDERS: ADMIT Internal Medicine; ATTEND Internal Medicine
PROC: 4A033R1 Measurement of Arterial Saturation, Peripheral, Percutaneous Approach (ICD-10-PCS; principal; 2018-03-11)
DX: A41.9 Sepsis, unspecified organism (principal); L89.153 Pressure ulcer of sacral region, stage 3; L89.624 Pressure ulcer of left heel, stage 4; E87.2 Acidosis; E87.1 Hypo-osmolality and hyponatremia; F17.210 Nicotine dependence, cigarettes, uncomplicated; B18.2 Chronic viral hepatitis C; B18.1 Chronic viral hepatitis B without delta-agent; J20.9 Acute bronchitis, unspecified; D50.9 Iron deficiency anemia, unspecified; C85.90 Non-Hodgkin lymphoma, unspecified, unspecified site; K74.60 Unspecified cirrhosis of liver; L89.322 Pressure ulcer of left buttock, stage 2; J10.1 Influenza due to other identified influenza virus with other respiratory manifestations; L89.151 Pressure ulcer of sacral region, stage 1; L89.132 Pressure ulcer of right lower back, stage 2; Z92.3 Personal history of irradiation; Z88.5 Allergy status to narcotic agent; Z91.018 Allergy to other foods
CPT/HCPCS: 36415; 71045; 80048; 80053; 80202; 81001; 82140; 82803; 82805; 85007; 85025; 85610; 87040; 87076; 87086; 87116; 87186; 87400; 93005; 93010; 94640; 96372; 96374; 99285; 99406; G0378; J1170; J1650; J1885; J2270; J2405; J2543; J3370; J7030; J7040; J7050

== ENCOUNTER 2018-06-01 09:57 | Outpatient (CLI) | payer MEDICAID ==
--- NOTE | 2018-04-29 13:44 | Consultation ---
HISTORY OF PRESENT ILLNESS: This is a gentleman, who is admitted to the hospital approximately 5 days ago with a history of lymphoma, hepatitis C, contractures and is paraplegic. He has a suprapubic tube that was placed about 4 or 5 months ago and consult was obtained for his tube change. PAST MEDICAL HISTORY: As mentioned above. PAST SURGICAL HISTORY: Back surgery, suprapubic tube. SOCIAL HISTORY: Noncontributory. FAMILY HISTORY: Noncontributory. REVIEW OF SYSTEMS: As mentioned above. He cannot walk. He is eating well. No nausea or vomiting. PHYSICAL EXAMINATION: GENERAL: He is awake. He is in no distress. ABDOMEN: Soft. There is a suprapubic tube draining, clear, but it is dirty. IMPRESSION: Chronic indwelling catheter for suprapubic tube change, this was completed for a 20-[place] suprapubic tube, draining clear. PLAN: Follow up in the office. JOB# [id number] RENETTA/VICENTE
[2018-06-01] MEDS ORDERED: XYLOCAINE TOPICAL 4% TP ONE (11:00)
[2018-06-01] MEDS ORDERED: SILVER NITRATE TP ONE (11:00)
== END 2018-06-01 09:58 | disposition home or self-care (01) ==
LOC: WOUND 09:57
PROVIDERS: ATTEND Surgery
DX: L89.624 Pressure ulcer of left heel, stage 4 (principal); L89.324 Pressure ulcer of left buttock, stage 4; L89.314 Pressure ulcer of right buttock, stage 4; L89.153 Pressure ulcer of sacral region, stage 3; G82.21 Paraplegia, complete; B19.10 Unspecified viral hepatitis B without hepatic coma; F17.210 Nicotine dependence, cigarettes, uncomplicated
CPT/HCPCS: 11042; 11043; 11045; 11046; G0463; 99215

== ENCOUNTER 2018-06-08 09:18 | Outpatient (CLI) | payer MEDICAID ==
[2018-06-08] MEDS ORDERED: XYLOCAINE TOPICAL 4% TP NR (09:23)
[2018-06-08] MEDS ORDERED: SILVER NITRATE TP ONE (10:00)
== END 2018-06-08 09:19 | disposition home or self-care (01) ==
LOC: WOUND 09:18
PROVIDERS: ATTEND Surgery
DX: L89.314 Pressure ulcer of right buttock, stage 4 (principal); L89.324 Pressure ulcer of left buttock, stage 4; L89.154 Pressure ulcer of sacral region, stage 4; L89.624 Pressure ulcer of left heel, stage 4; L89.612 Pressure ulcer of right heel, stage 2; G82.21 Paraplegia, complete; F17.290 Nicotine dependence, other tobacco product, uncomplicated; Z85.72 Personal history of non-Hodgkin lymphomas

== ENCOUNTER 2018-06-21 00:16 | Emergency (ER) | payer MEDICAID ==
[2018-06-21] MEDS ORDERED: TORADOL IV ONE (01:57)
[2018-06-21] MEDS ORDERED: CLEOCIN 600 MG/50 mL 600 MG/50 ML BAG IV ONE (01:58)
[2018-06-21] MEDS ORDERED: BENADRYL IV ONE (02:31)
[2018-06-21] MEDS ORDERED: ZOFRAN IV ONE (02:31)
[2018-06-21] MEDS ORDERED: BENADRYL ONE (02:33)
[2018-06-21 02:34] LABS: Basophils # (Auto) 0.1 K/mm3 (0.0-0.1); Basophils % (Auto) 1.3 % (0.0-1.8); Eosinophils # (Auto) 0.3 K/mm3 (0.0-0.4); Eosinophils % (Auto) 2.4 % (0.0-4.3); Hemoglobin 11.1 gm/dl (11.8-15.2); Lymphocytes # (Auto) 2.1 K/mm3 (1.2-5.4); Lymphocytes % (Auto) 18.8 % (13.4-35.0); Mean Corpuscular HGB Conc 33 % (32-34); Mean Corpuscular Volume 74 fl (84-94); Monocytes % (Auto) 9.3 % (0.0-7.3); Platelet Count 607 K/mm3 (140-440); Red Blood Count 4.57 M/mm3 (3.65-5.03); Red Cell Distribution Width 18.6 % (13.2-15.2)
[2018-06-21 02:42] LABS: BUN/Creatinine Ratio 18; Blood Urea Nitrogen 9 mg/dL (9-20); Hemolysis Index 9
[2018-06-21] MEDS ORDERED: AUGMENTIN 875 MG PO ONE (03:23)
--- NOTE | 2018-06-21 03:40 | Emergency Department Report ---
ED General Adult HPI - General Chief complaint: Extremity Injury, Lower Stated complaint: LEAKING ULCERS Time Seen by Provider: 06/21/18 01:50 Source: patient, EMS Mode of arrival: Ambulatory Limitations: Physical Limitation - History of Present Illness Initial comments: Patient is a 43-year-old male who is wheelchair-bound secondary to spine cancer who has chronic wounds on his bilateral hips and sacral. Patient appears stated and that the wounds over the last several weeks have become more malodorous. She states that there aren't draining. He denies any fevers chills nausea vomiting time. Patient does state that he does have pain in the bilateral hips secondary to these wounds. Patient recently enrolled in a new wound care clinic Severity scale (0 -10): 7 - Related Data Previous Rx's Medication Instructions Recorded Last Taken Type HYDROcodone/APAP 5-325 [[place] 1 each PO Q4H PRN #30 tablet 03/15/18 Unknown Rx 5-325 mg TAB] Ondansetron [Zofran ODT TAB] 4 mg PO Q8HR PRN #30 tab.rapdis 03/15/18 Unknown Rx Amoxicillin/Potassium Clav 1 each PO BID #14 tablet 06/21/18 Unknown Rx [Augmentin 875-125 Tablet] HYDROcodone/ACETAMINOPHEN 1 each PO Q6HR PRN #12 tablet 06/21/18 Unknown Rx [Hydrocodone-Acetamin 5-325 mg] Ibuprofen [Ibu] 800 mg PO Q8H PRN #20 tablet 06/21/18 Unknown Rx Allergies Allergy/AdvReac Type Severity Reaction Status Date / Time shiitake mushroom AdvReac Swelling Verified 08/01/14 18:30 ED Review of Systems ROS: Stated complaint: LEAKING ULCERS Other details as noted in HPI Comment: All other systems reviewed and negative ED Past Medical Hx - Past Medical History Previous Medical History?: Yes Hx Congestive Heart Failure: No Hx Diabetes: No Hx Liver Disease: Yes (Cirrhosis) Hx Seizures: No Hx Asthma: No Hx COPD: No Hx Dementia: No Additional medical history: spine cancer, Chronic Wounds left leg, hips and sacrum, Hep B, Hep C, lymphoma - Surgical History Past Surgical History?: Yes Additional Surgical History: 3 back surg per pt. - Social History Smoking Status: Current Every Day Smoker - Medications Home Medications: Home Medications Medication Instructions Recorded Confirmed Last Taken Type HYDROcodone/APAP 5-325 [[place] 1 each PO Q4H PRN #30 tablet 03/15/18 04/27/18 Un known Rx 5-325 mg TAB] Ondansetron [Zofran ODT TAB] 4 mg PO Q8HR PRN #30 tab.rapdis 03/15/18 04/27/18 Unknown Rx Amoxicillin/Potassium Clav 1 each PO BID #14 tablet 06/21/18 Unknown Rx [Augmentin 875-125 Tablet] HYDROcodone/ACETAMINOPHEN 1 each PO Q6HR PRN #12 tablet 06/21/18 Unknown Rx [Hydrocodone-Acetamin 5-325 mg] Ibuprofen [Ibu] 800 mg PO Q8H PRN #20 tablet 06/21/18 Unknown Rx ED Physical Exam - General Limitations: Physical Limitation General appearance: alert, in no apparent distress - Head Head exam: Present: atraumatic, normocephalic - Eye Eye exam: Present: normal appearance - ENT ENT exam: Present: mucous membranes moist - Neck Neck exam: Present: normal inspection - Respiratory Respiratory exam: Present: normal lung sounds bilaterally. Absent: respiratory distress, wheezes, rales, rhonchi - Cardiovascular Cardiovascular Exam: Present: regular rate, normal rhythm. Absent: systolic murmur, diastolic murmur, rubs, gallop - GI/Abdominal GI/Abdominal exam: Present: soft, normal bowel sounds. Absent: distended, tenderness, guarding, rebound - Rectal Rectal exam: Present: deferred - Extremities Exam Extremities exam: Present: normal inspection, other (patient with bilateral hip decubitus ulcers. Right is larger than the left. The right has a large area of necrotic tissue centrally. There is good granulation tissue around the borders. There is a foul odor. There is some serous drainage. Patient has some mild erythema surrounding this wound on the right however there is no induration or fluctuance. Patient also with a large decubitus ulcer of the sacrum which is a similar appearance to the right hip. Left hip wound shows just granulation tissue with no evidence of central necrosis. The patient's bilateral heels show decubitus ulcers as well with some very mild erythema surrounding with granulation tissue present. Also patient's wounds were covered with what appeared to be sanitary napkins. He is up and taped on. Patient does not know when the last time he changes his dressings.) - Back Exam Back exam: Present: normal inspection - Neurological Exam Neurological exam: Present: alert, oriented X3 - Psychiatric Psychiatric exam: Present: normal affect, normal mood - Skin Skin exam: Present: warm, dry, intact, normal color. Absent: rash ED Course Vital Signs 06/21/18 06/21/18 01:39 01:46 Temperature 98.0 F Blood Pressure 116/70 O2 Sat by Pulse 98 Oximetry ED Medical Decision Making - Lab Data Result diagrams: 06/21/18 02:12 06/21/18 02:12 Lab Results 06/21/18 06/21/18 Range/Units 02:12 02:12 WBC 11.0 (4.5-11.0) K/mm3 RBC 4.57 (3.65-5.03) M/mm3 Hgb 11.1 L (11.8-15.2) gm/dl Hct 34.0 L (35.5-45.6) % MCV 74 L (84-94) fl MCH 24 L (28-32) pg MCHC 33 (32-34) % RDW 18.6 H (13.2-15.2) % Plt Count 607 H (140-440) K/mm3 Lymph % (Auto) 18.8 (13.4-35.0) % Long % (Auto) 9.3 H (0.0-7.3) % Eos % (Auto) 2.4 (0.0-4.3) % Baso % (Auto) 1.3 (0.0-1.8) % Lymph # 2.1 (1.2-5.4) K/mm3 Long # 1.0 H (0.0-0.8) K/mm3 Eos # 0.3 (0.0-0.4) K/mm3 Baso # 0.1 (0.0-0.1) K/mm3 Seg Neutrophils % 68.2 (40.0-70.0) % Seg Neutrophils # 7.5 (1.8-7.7) K/mm3 Sodium 133 L (137-145) mmol/L Potassium 3.6 (3.6-5.0) mmol/L Chloride 96.1 L (98-107) mmol/L Carbon Dioxide 24 (22-30) mmol/L Anion Gap 17 mmol/L BUN 9 (9-20) mg/dL Creatinine 0.5 L (0.8-1.5) mg/dL Estimated GFR > 60 ml/min BUN/Creatinine Ratio 18 % Glucose 104 H (75-100) mg/dL Calcium 9.0 (8.4-10.2) mg/dL - Medical Decision Making His dressings were changed. Wounds were cleaned. Patient can continue his workup as an outpatient with wound care. Patient started initially on clindamycin having had an allergic reaction and this was stopped. Patient to be started on Augmentin and patient be given pain management Critical care attestation.: If time is entered above; I have spent that time in minutes in the direct care of this critically ill patient, excluding procedure time. ED Disposition Clinical Impression: Pressure sore on heel Qualifiers: Pressure injury stage: stage 2 Decubital ulcer Qualifiers: Pressure injury location: contiguous region involving buttock and hip Pressure injury stage: stage 3 Laterality: unspecified laterality Qualified Code(s): L89.43 - Pressure ulcer of contiguous site of back, buttock and hip, stage 3 Disposition: DC-01 TO HOME OR SELFCARE Is pt being admited?: No Does the pt Need Aspirin: No Condition: Stable Additional Instructions: Please follow up with wound care as you wounds need to be debrided Referrals: PRIMARY CARE, [Primary Care Provider] - 3-5 Days Time of Disposition: 03:42
[2018-06-21 04:14] VITALS: BP 121/75
== END 2018-06-21 09:45 | disposition home or self-care (01) ==
LOC: ED 00:16
DX: L89.212 Pressure ulcer of right hip, stage 2 (principal); L89.222 Pressure ulcer of left hip, stage 2; L89.43 Pressure ulcer of contiguous site of back, buttock and hip, stage 3; L89.622 Pressure ulcer of left heel, stage 2; L89.612 Pressure ulcer of right heel, stage 2; F17.200 Nicotine dependence, unspecified, uncomplicated; Z91.018 Allergy to other foods
CPT/HCPCS: 36415; 80048; 85025; 87040; 96374; 96375; 99284; J1200; J1885

== ENCOUNTER 2018-07-08 10:48 | Emergency (ER) | payer MEDICAID ==
[2018-07-08] MEDS ORDERED: NORCO 5/325 PO ONE (11:25)
--- NOTE | 2018-07-08 11:31 | Emergency Department Report ---
HPI - General Chief Complaint: Back Pain/Injury Time Seen by Provider: 07/08/18 11:11 - HPI HPI: Room 3 The patient is a 43-year-old male presenting with a chief complaint of back pain and suprapubic pain. The patient has a catheter which she states was last changed months ago. The patient states for the past 4 days he is lower back pain and suprapubic pain discharge. Patient denies history of fever but admits to occasional nausea and vomiting. The patient denies any recent trauma. Patient gives his pain a score of 9/10 Location: [See above] Duration: 4 days Quality: Pain Severity: 9/10 Modifying factors: [see above] Context: [see above] Mode of transportation: [not driving] ED Past Medical Hx - Past Medical History Hx Liver Disease: Yes (Cirrhosis) Additional medical history: spine cancer status post radiation (lymphoma in remission), Chronic Wounds left leg, hips and sacrum, Hep B, Hep C, lymphoma - Surgical History Additional Surgical History: 3 back surg per pt. - Family History Family history: no significant - Social History Smoking Status: Current Every Day Smoker (1/2 pack per day) Substance Use Type: None, Marijuana - Medications Home Medications: Home Medications Medication Instructions Recorded Confirmed Last Taken Type HYDROcodone/APAP 5-325 [[place] 1 each PO Q4H PRN #30 tablet 03/15/18 04/27/18 Unknown Rx 5-325 mg TAB] Ondansetron [Zofran ODT TAB] 4 mg PO Q8HR PRN #30 tab.rapdis 03/15/18 04/27/18 Unknown Rx Amoxicillin/Potassium Clav 1 each PO BID #14 tablet 06/21/18 Unknown Rx [Augmentin 875-125 Tablet] HYDROcodone/ACETAMINOPHEN 1 each PO Q6HR PRN #12 tablet 06/21/18 Unknown Rx [Hydrocodone-Acetamin 5-325 mg] Ibuprofen [Ibu] 800 mg PO Q8H PRN #20 tablet 06/21/18 Unknown Rx HYDROcodone/APAP 5-325 [[place] 1 - 2 each PO Q6HR PRN #14 tablet 07/08/18 Unknown Rx 5/325] Ibuprofen [Motrin 800 MG tab] 800 mg PO Q8HR PRN #20 tablet 07/08/18 Unknown Rx levoFLOXacin [Levaquin TAB] 500 mg PO QDAY #10 tablet 07/08/18 Unknown Rx ED Review of Systems ROS: Stated complaint: BACK PAIN Other details as noted in HPI Constitutional: denies: fever Eyes: denies: eye pain ENT: denies: throat pain Respiratory: no symptoms reported Cardiovascular: denies: chest pain Endocrine: no symptoms reported Gastrointestinal: abdominal pain, nausea, vomiting Musculoskeletal: back pain Neurological: denies: headache Physical Exam - Physical Exam Vital Signs: Vital Signs 07/08/18 11:06 Temperature 98.4 F Pulse Rate 73 Respiratory 16 Rate Blood Pressure 123/75 O2 Sat by Pulse 99 Oximetry Physical Exam: GENERAL: The patient is well-developed well-nourished []. [] HEENT: Normocephalic. Atraumatic. Extraocular motions are intact. Patient has moist mucous membranes. NECK: Supple. No meningitic signs are noted. There is no adenopathy noted. CHEST/LUNGS: Clear to auscultation. There is no respiratory distress noted. HEART/CARDIOVASCULAR: Regular. There is no tachycardia. There is no gallop rub or murmur. ABDOMEN: Abdomen is soft, nontender. Patient has normal bowel sounds. There is no abdominal distention. SKIN: There is no rash. There is no edema. There is no diaphoresis. NEURO: The patient is awake, alert, and oriented. The patient is cooperative. The patient has no focal neurologic deficits. The patient has normal speech and gait. MUSCULOSKELETAL: There is discomfort in the lower lumbar region. There is no axial step off. No CVA tenderness. There is no evidence of acute injury. ED Course Vital Signs 07/08/18 11:06 Temperature 98.4 F Pulse Rate 73 Respiratory 16 Rate Blood Pressure 123/75 O2 Sat by Pulse 99 Oximetry ED Medical Decision Making - Lab Data Result diagrams: 07/08/18 11:33 07/08/18 11:33 Laboratory Tests 07/08/18 07/08/18 07/08/18 11:33 11:33 11:35 WBC 11.6 H RBC 4.92 Hgb 11.6 L Hct 36.1 MCV 73 L MCH 24 L MCHC 32 RDW 18.2 H Plt Count 605 H Lymph % (Auto) 22.8 [place] % (Auto) 8.1 H Eos % (Auto) 2.3 Baso % (Auto) 0.8 Lymph # 2.6 [place] # 0.9 H Eos # 0.3 Baso # 0.1 Seg Neutrophils % 66.0 Seg Neutrophils # 7.7 Sodium 137 Potassium 4.3 Chloride 93.0 L Carbon Dioxide 25 Anion Gap 23 BUN 9 Creatinine 0.5 L Estimated GFR > 60 BUN/Creatinine Ratio 18 Glucose 99 Calcium 9.0 Total Bilirubin 0.20 AST 18 ALT 18 Alkaline Phosphatase 104 Total Protein 7.6 Albumin 3.1 L Albumin/Globulin Ratio 0.7 Urine Color Yellow Urine Turbidity Cloudy Urine pH 6.0 Ur Specific [place] 1.023 Urine Protein <15 mg/dl Urine Glucose (UA) Neg Urine Ketones Neg Urine Blood Mod Urine Nitrite Neg Urine Bilirubin Neg Urine Urobilinogen 2.0 Ur Leukocyte Esterase Lg Urine WBC (Auto) 131.0 H Urine RBC (Auto) 26.0 Urine Bacteria (Auto) 1+ Urine Mucus 3+ - Radiology Data Radiology results: report reviewed (CT lumbar spine), image reviewed (CT lumbar spine) [place] [address] Cat Scan Report Signed Patient: HARMONY HERNANDEZ JR MR#: [id number] : 1975 Acct:[id number] Age/Sex: 43 / M ADM Date: 07/08/18 Loc: ED Attending Dr: Ordering Physician: CURTIS KERN MD Date of Service: 07/08/18 Procedure(s): CT lumbar spine wo con Accession Number(s): [id number] cc: CURTIS KERN MD CT LUMBAR SPINE WITHOUT CONTRAST History: Back pain, lymphoma in remission. Technique: Helical CT with sagittal and coronal reformatted images. FINDINGS: No comparison. Mild osteopenia is evident. There is normal height and alignment of the lumbar vertebral bodies. No evidence for compression deformity, subluxation or bone lesion. Schmorl's nodes are noted along the superior and inferior endplate of T12. The posterior elements are in appropriate relationship. No significant facet arthropathy. L1-2: There is moderate to severe disc space narrowing with vacuum phenomenon. Prominent posterior spurring is identified resulting in mild central canal stenosis measuring 8 mm in AP dimension. No significant neural foraminal narrowing. L2-3: No significant abnormality. L3-4: No significant abnormality. L4-5: Mild disc space narrowing and circumferential spurring is identified. The facet joints are unremarkable. Mild bilateral neural foraminal narrowing is estimated at 50%. L5-S1: No significant abnormality. IMPRESSION: No acute process is identified. Mild to moderate lumbar spondylosis which is most pronounced at L1-2. There is mild central canal narrowing at this level. No suspicious bone lesion is identified. Osteopenia. Transcribed By: TTR Dictated By: MIKAEL LAROSE JR, MD Electronically Authenticated By: MIKAEL LAROSE JR, MD Signed Date/Time: 07/08/181527 DD/ 24 TD/TT: 07/08/181527 - Differential Diagnosis UTI, pyelonephritis, spinal metastases Critical care attestation.: If time is entered above; I have spent that time in minutes in the direct care of this critically ill patient, excluding procedure time. ED Disposition Clinical Impression: Pyelonephritis, Back pain Disposition: TO HOME OR SELFCARE Is pt being admited?: No Does the pt Need Aspirin: No Condition: Stable Instructions: Urinary Tract Infection in Men (ED) Additional Instructions: Return to the emergency department immediately should you develop worsening symptoms, fever, inability to tolerate food or liquid or any other concerns. Prescriptions: levoFLOXacin [Levaquin TAB] 500 mg PO QDAY #10 tablet Ibuprofen [Motrin 800 MG tab] 800 mg PO Q8HR PRN #20 tablet PRN Reason: Pain, Moderate (4-6) HYDROcodone/APAP 5-325 [[place] 5/325] 1 - 2 each PO Q6HR PRN #14 tablet PRN Reason: Pain Referrals: [facility] MD TAMIKA [Primary Care Provider] - 3-5 Days HITSEH ASIF MD [Staff Physician] - 3-5 Days (Dr Asif is a urologist. Please follow up in for further evaluation) Time of Disposition: 16:46
[2018-07-08 11:58] LABS: Basophils # (Auto) 0.1 K/mm3 (0.0-0.1); Basophils % (Auto) 0.8 % (0.0-1.8); Eosinophils # (Auto) 0.3 K/mm3 (0.0-0.4); Eosinophils % (Auto) 2.3 % (0.0-4.3); Hematocrit 36.1 % (35.5-45.6); Hemoglobin 11.6 gm/dl (11.8-15.2); Lymphocytes # (Auto) 2.6 K/mm3 (1.2-5.4); Lymphocytes % (Auto) 22.8 % (13.4-35.0); Mean Corpuscular HGB Conc 32 % (32-34); Mean Corpuscular Volume 73 fl (84-94); Monocytes # (Auto) 0.9 K/mm3 (0.0-0.8); Monocytes % (Auto) 8.1 % (0.0-7.3); Platelet Count 605 K/mm3 (140-440); Red Blood Count 4.92 M/mm3 (3.65-5.03); Red Cell Distribution Width 18.2 % (13.2-15.2)
[2018-07-08 12:16] LABS: Bacteria,Urine 1+ /HPF (Negative); Bilirubin,Urine NEG (Negative); Blood,Urine MOD (Negative); Color,Urine Yellow (Yellow); Mucus,Urine 3+ /HPF; Protein,Urine <15 mg/dL mg/dL (Negative)
[2018-07-08 12:17] LABS: Alanine Aminotransferase 18 units/L (7-56); Albumin 3.1 g/dL (3.9-5); BUN/Creatinine Ratio 18; Blood Urea Nitrogen 9 mg/dL (9-20); Hemolysis Index 2
[2018-07-08 12:42] VITALS: BP 102/66
--- NOTE | 2018-07-08 15:33 | Cat Scan Report ---
CT LUMBAR SPINE WITHOUT CONTRAST History: Back pain, lymphoma in remission. Technique: Helical CT with sagittal and coronal reformatted images. FINDINGS: No comparison. Mild osteopenia is evident. There is normal height and alignment of the lumbar vertebral bodies. No evidence for compression deformity, subluxation or bone lesion. Schmorl's nodes are noted along the superior and inferior endplate of T12. The posterior elements are in appropriate relationship. No significant facet arthropathy. L1-2: There is moderate to severe disc space narrowing with vacuum phenomenon. Prominent posterior spurring is identified resulting in mild central canal stenosis measuring 8 mm in AP dimension. No significant neural foraminal narrowing. L2-3: No significant abnormality. L3-4: No significant abnormality. L4-5: Mild disc space narrowing and circumferential spurring is identified. The facet joints are unremarkable. Mild bilateral neural foraminal narrowing is estimated at 50%. L5-S1: No significant abnormality. IMPRESSION: No acute process is identified. Mild to moderate lumbar spondylosis which is most pronounced at L1-2. There is mild central canal narrowing at this level. No suspicious bone lesion is identified. Osteopenia.
[2018-07-08] MEDS ORDERED: LEVAQUIN PO ONE (15:41)
== END 2018-07-08 16:54 | disposition home or self-care (01) ==
LOC: ED 10:48
DX: N12 Tubulo-interstitial nephritis, not specified as acute or chronic (principal); F17.210 Nicotine dependence, cigarettes, uncomplicated; F12.90 Cannabis use, unspecified, uncomplicated; Z91.018 Allergy to other foods
CPT/HCPCS: 36415; 51702; 72131; 80053; 81001; 85025; 99284

== ENCOUNTER 2018-08-29 11:54 | Emergency (ER) | payer MEDICAID ==
--- NOTE | 2018-08-29 13:36 | Emergency Department Report ---
HPI - General Chief Complaint: Tube Replacement Time Seen by Provider: 08/29/18 13:22 - HPI HPI: Room 24 The patient is a 43-year-old male presenting with a chief complaint leaking around suprapubic cath. Patient has a history of suprapubic catheter states it was exchanged yesterday at [facility]. The patient states he has noticed that urine is leaking from around the tube at the insertion site. Patient is requesting a larger suprapubic catheter. Location: [See above] Duration: [See above] Quality: [See above] Severity: [See above] Modifying factors: [see above] Context: [see above] Mode of transportation: [not driving] ED Past Medical Hx - Past Medical History Hx Liver Disease: Yes (Cirrhosis) Additional medical history: spine cancer status post radiation (lymphoma in remission), Chronic Wounds left leg, hips and sacrum, Hep B, Hep C, lymphoma - Surgical History Additional Surgical History: 3 back surg per pt. - Family History Family history: no significant - Social History Smoking Status: Current Every Day Smoker (1/2 pack per day) - Medications Home Medications: Home Medications Medication Instructions Recorded Confirmed Last Taken Type HYDROcodone/APAP 5-325 [[place] 1 each PO Q4H PRN #30 tablet 03/15/18 04/27/18 Unknown Rx 5-325 mg TAB] Ondansetron [Zofran ODT TAB] 4 mg PO Q8HR PRN #30 tab.rapdis 03/15/18 04/27/18 Unknown Rx Amoxicillin/Potassium Clav 1 each PO BID #14 tablet 06/21/18 Unknown Rx [Augmentin 875-125 Tablet] HYDROcodone/ACETAMINOPHEN 1 each PO Q6HR PRN #12 tablet 06/21/18 Unknown Rx [Hydrocodone-Acetamin 5-325 mg] Ibuprofen [Ibu] 800 mg PO Q8H PRN #20 tablet 06/21/18 Unknown Rx HYDROcodone/APAP 5-325 [[place] 1 - 2 each PO Q6HR PRN #14 tablet 07/08/18 Unknown Rx 5/325] Ibuprofen [Motrin 800 MG tab] 800 mg PO Q8HR PRN #20 tablet 07/08/18 Unknown Rx levoFLOXacin [Levaquin TAB] 500 mg PO QDAY #10 tablet 07/08/18 Unknown Rx ED Review of Systems ROS: Stated complaint: LEAKING CATHETER Other details as noted in HPI Constitutional: no symptoms reported Eyes: denies: eye pain ENT: denies: throat pain Respiratory: no symptoms reported Cardiovascular: denies: chest pain Endocrine: no symptoms reported Gastrointestinal: denies: abdominal pain Genitourinary: other (superpubic catheter leaking) Musculoskeletal: denies: back pain Skin: denies: lesions Neurological: denies: headache Physical Exam - Physical Exam Vital Signs: Vital Signs 08/29/18 12:39 Temperature 98.0 F Pulse Rate 61 Respiratory 13 Rate Blood Pressure 138/88 O2 Sat by Pulse 100 Oximetry Physical Exam: GENERAL: The patient is well-developed well-nourished male lying on stretcher not appearing to be in acute distress. [] HEENT: Normocephalic. Atraumatic. Extraocular motions are intact. Patient has moist mucous membranes. NECK: Supple. Trachea midline CHEST/LUNGS: There is no respiratory distress noted. HEART/CARDIOVASCULAR: Regular. There is no tachycardia. ABDOMEN: There is no abdominal distention.. 20 [place] superpubic catheter in place SKIN: There is no diaphoresis. NEURO: The patient is awake, alert, and oriented. The patient is cooperative. The patient has normal speech MUSCULOSKELETAL: There is no evidence of acute injury. ED Course Vital Signs 08/29/18 12:39 Temperature 98.0 F Pulse Rate 61 Respiratory 13 Rate Blood Pressure 138/88 O2 Sat by Pulse 100 Oximetry - Catheter Insertion (Urinary) Indications: replaced: fell out/removed/no longer functioning Prophylactic Antibiotics Given: No Bladder Scan/US before Catherization: No Estimated Amount of Urine (mls): 150 Preparation: Providone-Iodine Type of Catheter Inserted: David Catheter [place] Size: 22 Catheter Balloon Size (mls): 10 Topical Anesthesia Used: No Results: successfully catherized-immediate flow Patient Tolerated Procedure: well, no complications Complications: none ED Medical Decision Making - Differential Diagnosis leaking suprapubic cath Critical care attestation.: If time is entered above; I have spent that time in minutes in the direct care of this critically ill patient, excluding procedure time. ED Disposition Clinical Impression: Suprapubic catheter dysfunction Disposition: - TO HOME OR SELFCARE Is pt being admited?: No Does the pt Need Aspirin: No Condition: Stable Instructions: How to Care for Your Suprapubic Catheter (ED) Additional Instructions: Return to the emergency department immediately should you develop worsening symptoms, fever, inability to tolerate food or liquid or any other concerns. Referrals: ISAAC MATTHEWS MD [Primary Care Provider] - 3-5 Days HITESH ASIF MD [Staff Physician] - 3-5 Days (Dr Asif is a urologist. Please follow up with him for further evaluation) Time of Disposition: 15:06
[2018-08-29 16:01] VITALS: BP 107/65
== END 2018-08-29 16:09 | disposition home or self-care (01) ==
LOC: ED 11:54
DX: T83.038A Leakage of other urinary catheter, initial encounter (principal); Y92.89 Other specified places as the place of occurrence of the external cause; F17.200 Nicotine dependence, unspecified, uncomplicated

== ENCOUNTER 2019-01-18 12:43 | Emergency (ER) | payer MEDICAID ==
--- NOTE | 2019-01-18 13:01 | Emergency Department Report ---
ED General Adult HPI - General Chief complaint: Fever Stated complaint: CATHER/WEAKNESS/FEVER Time Seen by Provider: 01/18/19 12:53 Source: patient, family, EMS Mode of arrival: Stretcher Limitations: No Limitations - History of Present Illness Initial comments: 43 yo ill appearing male come to ER after his hospice cargiver told him to come several days ago - for concern for urinary infection. 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 He is a DNR. [facility] lymphoma decubitus wounds debility contractures BLE suprapubic catheter- chronic CIRRHOSIS Hep C home rx percocet xanax methadone gabapent. Pt lives with his mother and a few of his children. He has 15 kids total. Pt's original care and surgery for lymphoma, including radiation, was at [facility] in [place]. -: Gradual Associated Symptoms: fever/chills, loss of appetite - Related Data Previous Rx's Medication Instructions Recorded Last Taken Type levoFLOXacin [Levaquin TAB] 500 mg PO BID #20 tablet 01/18/19 Unknown Rx Allergies Allergy/AdvReac Type Severity Reaction Status Date / Time shiitake mushroom AdvReac Swelling Verified 08/01/14 18:30 ED Review of Systems ROS: Stated complaint: CATHER/WEAKNESS/FEVER Other details as noted in HPI Comment: All other systems reviewed and negative ED Past Medical Hx - Past Medical History Previous Medical History?: Yes Hx Congestive Heart Failure: No Hx Diabetes: No Hx Liver Disease: Yes (Cirrhosis, Hep C) Hx Seizures: No Hx Asthma: No Hx COPD: No Hx Dementia: No Additional medical history: spine cancer status post radiation (lymphoma in remission), Chronic Wounds left leg, hips and sacrum, Hep B, Hep C, lymphoma - Surgical History Past Surgical History?: Yes Additional Surgical History: 3 back surg per pt. - Family History Family history: no significant - Social History Smoking Status: Unknown if ever smoked - Medications Home Medications: Home Medications Medication Instructions Recorded Confirmed Last Taken Type levoFLOXacin [Levaquin TAB] 500 mg PO BID #20 tablet 01/18/19 Unknown Rx ED Physical Exam - General Limitations: No Limitations General appearance: alert - Eye Eye exam: Present: PERRL - ENT ENT exam: Present: mucous membranes dry - Neck Neck exam: Present: normal inspection - Respiratory Respiratory exam: Present: normal lung sounds bilaterally. Absent: respiratory distress - Cardiovascular Cardiovascular Exam: Present: regular rate, normal rhythm. Absent: systolic murmur, diastolic murmur, rubs, gallop - GI/Abdominal GI/Abdominal exam: Present: soft, normal bowel sounds - Rectal Rectal exam: Present: deferred - Extremities Exam Extremities exam: Present: other (contracted) - Back Exam Back exam: Present: normal inspection - Neurological Exam Neurological exam: Present: alert, oriented X3, abnormal gait - Psychiatric Psychiatric exam: Present: depressed - Skin Skin exam: Present: warm. Absent: rash ED Course Vital Signs 01/18/19 01/18/19 01/18/19 12:59 14:00 16:00 Temperature 98.6 F Pulse Rate 46 L 48 L 55 L Respiratory 16 18 16 Rate Blood Pressure 92/66 169/94 124/82 [Right] O2 Sat by Pulse 100 100 100 Oximetry 01/18/19 01/18/19 16:24 18:00 Temperature 98.5 F 98.4 F Pulse Rate 52 L Respiratory 16 Rate Blood Pressure 125/82 [Right] O2 Sat by Pulse 100 Oximetry ED Medical Decision Making - Lab Data Result diagrams: 01/18/19 13:05 01/18/19 13:05 - Medical Decision Making Labs 01/18/19 01/18/19 01/18/19 13:05 13:05 13:05 WBC 10.1 RBC 5.08 H Hgb 11.7 L Hct 36.8 MCV 72 L MCH 23 L MCHC 32 RDW 20.7 H Plt Count 521 H Lymph % (Auto) 23.4 [place] % (Auto) 9.3 H Eos % (Auto) 2.1 Baso % (Auto) 1.9 H Lymph # 2.4 [place] # 0.9 H Eos # 0.2 Baso # 0.2 H Seg Neutrophils % 63.3 Seg Neutrophils # 6.4 Sodium 136 L Potassium 4.0 Chloride 101.5 Carbon Dioxide 24 Anion Gap 15 BUN 15 Creatinine 0.4 L Estimated GFR > 60 BUN/Creatinine Ratio 38 Glucose 104 H Lactic Acid 1.30 Calcium 9.6 Total Bilirubin 0.30 AST 34 ALT 24 Alkaline Phosphatase 155 H Total Protein 8.5 H Albumin 3.9 Albumin/Globulin Ratio 0.8 Urine Color Urine Turbidity Urine pH Ur Specific [place] Urine Protein Urine Glucose (UA) Urine Ketones Urine Blood Urine Nitrite Urine Bilirubin Urine Urobilinogen Ur Leukocyte Esterase Urine WBC (Auto) Urine RBC (Auto) U Epithel Cells (Auto) Urine Bacteria (Auto) Urine WBC Clumps Urine Mucus 01/18/19 13:20 WBC RBC Hgb Hct MCV MCH MCHC RDW Plt Count Lymph % (Auto) [place] % (Auto) Eos % (Auto) Baso % (Auto) Lymph # [place] # Eos # Baso # Seg Neutrophils % Seg Neutrophils # Sodium Potassium Chloride Carbon Dioxide Anion Gap BUN Creatinine Estimated GFR BUN/Creatinine Ratio Glucose Lactic Acid Calcium Total Bilirubin AST ALT Alkaline Phosphatase Total Protein Albumin Albumin/Globulin Ratio Urine Color Yellow Urine Turbidity Turbid Urine pH 5.0 Ur Specific [place] 1.025 Urine Protein 100 mg/dl Urine Glucose (UA) Neg Urine Ketones Neg Urine Blood Mod Urine Nitrite Pos Urine Bilirubin Neg Urine Urobilinogen < 2.0 Ur Leukocyte Esterase Lg Urine WBC (Auto) > 182.0 H Urine RBC (Auto) 73.0 U Epithel Cells (Auto) 1.0 Urine Bacteria (Auto) 4+ Urine WBC Clumps 2+ Urine Mucus 3+ Vital Signs 01/18/19 01/18/19 01/18/19 12:59 14:00 16:00 Temperature 98.6 F Pulse Rate 46 L 48 L 55 L Respiratory 16 18 16 Rate Blood Pressure 92/66 169/94 124/82 [Right] O2 Sat by Pulse 100 100 100 Oximetry 01/18/19 16:24 Temperature 98.5 F Pulse Rate Respiratory Rate Blood Pressure [Right] O2 Sat by Pulse Oximetry labs noted pt medicated per EMR DNR VSS- no sepsis Pt dc home with his son for hospice care. Referrals provided. Urine culture pending- sent home on levaquin Son verbalizes understanding of plan of care. Critical care attestation.: If time is entered above; I have spent that time in minutes in the direct care of this critically ill patient, excluding procedure time. ED Disposition Clinical Impression: UTI (urinary tract infection), Decubital ulcer, Hospice care patient, Lymphoblastic (diffuse) lymphoma, unspecified site, DNR (do not resuscitate) Disposition: DC-01 TO HOME OR SELFCARE Is pt being admited?: No Does the pt Need Aspirin: No Condition: Stable Additional Instructions: CONTINUE HOME MEDS LET YOUR HOSPICE CAREGIVER KNOW YOU WERE HERE TODAY AND TREATED FOR INFECTION. YOUR WBC COUNT IS NORMAL; IS YOUR LACTIC ACID. HYDRATE WELL WITH WATER MOTRIN OR TYLENOL FOR FEVER FOLLOW UP MIC WITH YOUR PCP FOR EVALUATION OF YOUR WOUNDS- YOU MAY BENEFIT FROM A WOUND CARE NURSE COMING TO YOUR HOME CARE TO CATHETER PER YOUR ROUTINE FOLLOW UP WITH UROLOGY MIC REFERRAL FOR A LOCAL UROLOGIST IS BELOW THEY NEED TO MAKE SURE THIS INFECTION GOES AWAY AND THAT YOUR CATHETER IS SCOTT INING PROPERLY. Prescriptions: levoFLOXacin [Levaquin TAB] 500 mg PO BID #20 tablet Referrals: PRIMARY CARE, [Primary Care Provider] - 3-5 Days AUSTIN RICCI MD [Staff Physician] - 3-5 Days [facility] [Outside] - 3-5 Days Time of Disposition: 16:46
[2019-01-18] MEDS ORDERED: VANCOMYCIN 1,250 MG in SODIUM CHLORIDE 0.9% 500 ML 500 ML IV ONE (13:02)
[2019-01-18] MEDS ORDERED: SODIUM CHLORIDE 0.9% 1000 ML IV SOLN IV ONE (13:02)
[2019-01-18] MEDS ORDERED: CEFEPIME/NS 2 GM/100 ML 2 GM/100 ML BAG IV ONE (13:03)
[2019-01-18 13:18] LABS: Basophils # (Auto) 0.2 K/mm3 (0.0-0.1); Basophils % (Auto) 1.9 % (0.0-1.8); Eosinophils # (Auto) 0.2 K/mm3 (0.0-0.4); Eosinophils % (Auto) 2.1 % (0.0-4.3); Hematocrit 36.8 % (35.5-45.6); Hemoglobin 11.7 gm/dl (11.8-15.2); Lymphocytes # (Auto) 2.4 K/mm3 (1.2-5.4); Lymphocytes % (Auto) 23.4 % (13.4-35.0); Mean Corpuscular HGB Conc 32 % (32-34); Mean Corpuscular Volume 72 fl (84-94); Monocytes # (Auto) 0.9 K/mm3 (0.0-0.8); Monocytes % (Auto) 9.3 % (0.0-7.3); Platelet Count 521 K/mm3 (140-440); Red Blood Count 5.08 M/mm3 (3.65-5.03)
[2019-01-18 13:20] LABS: Red Cell Distribution Width 20.7 % (13.2-15.2)
[2019-01-18] MEDS ORDERED: SODIUM HYPOCHLORITE, DAKIN'S 1/2 STRENGTH (0.25%) 473 ML TOPICAL SOLN TP ONE (13:32)
[2019-01-18 13:44] LABS: Alanine Aminotransferase 24 units/L (7-56); Albumin 3.9 g/dL (3.9-5); BUN/Creatinine Ratio 38; Blood Urea Nitrogen 15 mg/dL (9-20); Calcium 9.6 mg/dL (8.4-10.2); Hemolysis Index 19
[2019-01-18] MEDS ORDERED: VANCOMYCIN PHARMACY TO DOSE IV SCH (14:00)
[2019-01-18 14:20] LABS: Bacteria,Urine 4+ /HPF (Negative); Bilirubin,Urine NEG (Negative); Blood,Urine MOD (Negative); Color,Urine Yellow (Yellow); Mucus,Urine 3+ /HPF; Urobilinogen,Urine < 2.0 mg/dL (<2.0)
[2019-01-18 14:24] LABS: WBC,Urine > 182.0 /HPF (0.0-6.0)
--- NOTE | 2019-01-18 14:55 | XRay Report ---
CHEST 1 VIEW INDICATION: chills. COMPARISON: 04/24/2018 FINDINGS: Support devices: None. Heart: Within normal limits. Pulmonary vasculature: Large central pulmonary arteries but otherwise normal vasculature. Lungs/Pleura: No acute air space or interstitial disease. No pleural effusion. Additional findings: None. IMPRESSION: 1. No acute findings. Signer Name: Reinier Pompa MD Signed: 01/18/2019 2:51 PM Workstation Name: [id number]
[2019-01-18 18:29] VITALS: BP 125/82
[2019-01-19] MEDS ORDERED: VANCOMYCIN/NS 1 GM/250 ML 1 GM/250 ML BAG IV SCH (02:00)
== END 2019-01-18 20:28 | disposition home or self-care (01) ==
LOC: ED 12:43
DX: N39.0 Urinary tract infection, site not specified (principal); K74.60 Unspecified cirrhosis of liver; C85.90 Non-Hodgkin lymphoma, unspecified, unspecified site; Z86.19 Personal history of other infectious and parasitic diseases; Z88.5 Allergy status to narcotic agent; Z91.018 Allergy to other foods; Z88.1 Allergy status to other antibiotic agents
CPT/HCPCS: 36415; 71045; 80053; 81001; 82140; 85025; 87040; 87086; 96365; 96366; 96367; 99284; A6260; J0692; J3370; J7030; J7040

== ENCOUNTER 2021-05-20 11:53 | Inpatient (IN) | payer MEDICAID ==
[2021-05-20] MEDS ORDERED: METOCLOPRAMIDE 10 MG/2 ML INJ IV ONE (12:19)
[2021-05-20] MEDS ORDERED: fentaNYL 100 MCG/2 ML INJ IV ONE (12:19)
[2021-05-20] MEDS ORDERED: SODIUM CHLORIDE 0.9% 1000 ML 1,000 ML IV ONE (12:19)
--- NOTE | 2021-05-20 12:19 | Emergency Department Report ---
ED N/V/D HPI - General Chief complaint: Nausea/Vomiting/Diarrhea Stated complaint: WEAKNESS/SECONDARY N&V Time Seen by Provider: 05/20/21 12:19 Source: EMS Mode of arrival: Stretcher Limitations: No Limitations - History of Present Illness Initial comments: Patient presents by ambulance secondary to nausea with vomiting. He has been having abdominal pain. Symptoms have been present over the last day or 2. There has been no bowel movement. He states he has been constipated for the last month. He did vomit some coffee-ground emesis. He does not know if it is blood or not. He has no fevers or chills. Abdominal pain is described as sharp and stabbing. It is diffuse in nature. It is worse with any kind of movement or palpation. Has never had symptoms like this before. He has had no sick contacts. Patient has not been on antibiotics lately. He has not eaten anything that tasted bad or unusual. He has never had surgery on his abdomen before. - Related Data Previous Rx's Medication Instructions Recorded Last Taken Type levoFLOXacin [Levaquin TAB] 500 mg PO BID #20 tablet 01/18/19 Unknown Rx Allergies Allergy/AdvReac Type Severity Reaction Status Date / Time shiitake mushroom AdvReac Swelling Verified 08/01/14 18:30 ED Review of Systems ROS: Stated complaint: WEAKNESS/SECONDARY N&V Other details as noted in HPI Comment: All other systems reviewed and negative Constitutional: denies: fever Eyes: denies: vision change ENT: denies: throat pain Respiratory: denies: cough Cardiovascular: denies: chest pain Endocrine: denies: unexplained weight loss Gastrointestinal: as per HPI Genitourinary: denies: dysuria Musculoskeletal: denies: back pain Skin: denies: rash Neurological: denies: headache Hematological/Lymphatic: denies: easy bruising ED Past Medical Hx - Past Medical History Hx Congestive Heart Failure: No Hx Diabetes: No Hx Deep Vein Thrombosis: No Hx Liver Disease: Yes (Cirrhosis, Hep C) Hx Seizures: No Hx Asthma: No Hx COPD: No Hx Dementia: No Additional medical history: spine cancer status post radiation (lymphoma in remission), Chronic Wounds left leg, hips and sacrum, Hep B, Hep C, lymphoma - Surgical History Hx Pacemaker: No Hx Internal Defibrillator: No Hx Appendectomy: Yes Additional Surgical History: 3 back surg per pt. - Family History Family history: hypertension - Social History Smoking Status: Smoker, Current Status Unknown - Medications Home Medications: Home Medications Medication Instructions Recorded Confirmed Last Taken Type levoFLOXacin [Levaquin TAB] 500 mg PO BID #20 tablet 01/18/19 03/11/21 Unknown Rx ED Physical Exam - General Limitations: No Limitations, Other (Pulse ox noted and normal) General appearance: alert, in no apparent distress, cachectic - Head Head exam: Present: atraumatic, normocephalic - Eye Eye exam: Present: normal appearance, EOMI. Absent: scleral icterus - ENT ENT exam: Present: mucous membranes dry, normal external ear exam - Neck Neck exam: Present: normal inspection. Absent: meningismus - Respiratory Respiratory exam: Present: normal lung sounds bilaterally. Absent: respiratory distress - Cardiovascular Cardiovascular Exam: Present: normal rhythm, bradycardia - GI/Abdominal GI/Abdominal exam: Present: soft, distended (And tympanic), tenderness (Diffuse) - Extremities Exam Extremities exam: Present: normal capillary refill, other (Bilateral amputee lower extremities) - Back Exam Back exam: Absent: CVA tenderness (R), CVA tenderness (L) - Neurological Exam Neurological exam: Present: alert, oriented X3, CN II-XII intact. Absent: motor sensory deficit - Psychiatric Psychiatric exam: Present: normal affect, normal mood - Skin Skin exam: Present: warm, dry ED Course Vital Signs 05/20/21 05/20/21 05/20/21 12:09 13:47 13:55 Temperature 98.6 F 98.1 F Pulse Rate 47 L Respiratory 16 18 Rate Blood Pressure 150/81 [Right] O2 Sat by Pulse 98 98 98 Oximetry - Reevaluation(s) Reevaluation #1: 05/20/21 12:19 EMS was met. IV, labs, and CT were ordered. Old records reviewed. Reevaluation #2: 05/20/21 16:[address] was noted. Patient was admitted. Case was discussed with Dr. Somers. ED Medical Decision Making - Lab Data Result diagrams: 05/20/21 12:37 05/20/21 12:37 Rhythm strip: Sinus bradycardia without ectopy per monitor observe 10 seconds. - Radiology Data Radiology results: report reviewed - Medical Decision Making Patient presented by ambulance secondary to GI upset. He had suggestion of an upper GI bleed given coffee-ground emesis and elevated BUN. He certainly does have evidence of acute kidney injury and hydration has been addressed. Patient has an ileus based on CT likely related to constipation. He also has a large sacral decubitus wound with bony erosion. Patient will be admitted for ongoing treatment and management. There is no evidence of free air or perforation. He may benefit from rectal tube or even an enema to try to alleviate the constipation and decompress the gut. Critical Care Time: No Critical care attestation.: If time is entered above; I have spent that time in minutes in the direct care of this critically ill patient, excluding procedure time. ED Disposition Clinical Impression: Generalized abdominal pain, Sacral decubitus ulcer, stage IV, Ileus, CHARMAINE (acute kidney injury), Chronic anemia Nausea & vomiting Qualifiers: Vomiting type: hematemesis Qualified Code(s): K92.0 - Hematemesis Disposition: 09 ADMITTED INPATIENT Is pt being admited?: Yes Condition: Stable
[2021-05-20 13:03] LABS: Basophils % (Auto) 0.5 % (0.0-1.8); Eosinophils % (Auto) 0.1 % (0.0-4.3); Hematocrit 32.1 % (35.5-45.6); Hemoglobin 10.2 gm/dl (11.8-15.2); Lymphocytes % (Auto) 10.2 % (13.4-35.0); Mean Corpuscular HGB Conc 32 % (32-34); Mean Corpuscular Volume 86 fl (84-94); Monocytes % (Auto) 10.3 % (0.0-7.3); Platelet Count 692 K/mm3 (140-440); Red Blood Count 3.76 M/mm3 (3.65-5.03)
[2021-05-20 13:17] LABS: Alanine Aminotransferase 31 units/L (7-56); Albumin 2.6 g/dL (3.9-5); Blood Urea Nitrogen 32 mg/dL (9-20); Calcium 8.4 mg/dL (8.4-10.2); Hemolysis Index 21
[2021-05-20 13:22] LABS: BUN/Creatinine Ratio 53
[2021-05-20] MEDS ORDERED: LACTATED RINGERS 1,000 ML IV ONE (13:31)
--- NOTE | 2021-05-20 15:16 | Cat Scan Report ---
CT ABDOMEN AND PELVIS WITH CONTRAST INDICATION / CLINICAL INFORMATION: Abdominal distention with tympany, possible bowel obstruction. TECHNIQUE: Axial CT images were obtained through the abdomen and pelvis after 90 cc Omnipaque [address] scans at this location are performed using CT dose reduction for ALARA by means of automated e xposure control. COMPARISON: CT abdomen and pelvis with contrast from 01/09/2011. FINDINGS: LOWER CHEST: Bilateral lower lobe consolidations with air bronchograms could represent atelectasis or pneumonia. Additional probable atelectasis is seen anteriorly along the lung bases. No other signifi cant abnormality. LIVER: There is generalized steatosis without other significant abnormalities. GALLBLADDER: No significant abnormality. BILE DUCTS: No significant abnormality. PANCREAS: No significant abnormality. SPLEEN: No significant abnormality. ADRENALS: No significant abnormality. RIGHT KIDNEY/URETER: No significant abnormality. LEFT KIDNEY/URETER: No significant abnormality. STOMACH/SMALL BOWEL: There is moderate distention of the stomach and small bowel without visualizatio n of a transition point or other acute findings. COLON: Generalized moderate distention of the colon is noted with a large amount of stool seen along the colon, especially along the sigmoid colon and rectum. No other acute findings. APPENDIX: Not seen and possibly surgically absent. PERITONEUM: No free fluid. No free air. No fluid collection. LYMPH NODES: No significant adenopathy. VASCULATURE: There is mild aortic atherosclerosis without other significant abnormalities. URINARY BLADDER: Drained by a suprapubic catheter. REPRODUCTIVE ORGANS: No significant abnormality. ADDITIONAL FINDINGS: There is marked generalized subcutaneous edema. A large sacral decubitus ulcer m easures up to 14.3 cm in axial dimension on image 162 of series 2. BONES: Marked destruction of the hips is noted with erosion of the right femoral head and posterior s ubluxation of the remainder of the right hip relative to the acetabulum. Sclerotic changes along the inferior sacrum/coccyx, the posterior wing of the left iliac bone and the inferior pubic rami likely represent chronic osteomyelitis. IMPRESSION: 1. CT evidence of constipation with a probable secondary ileus. 2. No other acute findings. 3. Bilateral lower lobe atelectasis versus pneumonia. 4. Additional findings as above. Signer Name: Torrey Laura MD Signed: 05/20/2021 3:11 PM Workstation Name: [email or web address]
[2021-05-20] MEDS ORDERED: oxyCODONE /ACETAMINOPHEN 5-325MG TAB PO PRN (19:23)
[2021-05-20] MEDS ORDERED: ACETAMINOPHEN 325 MG TAB PO PRN (19:23)
[2021-05-20] MEDS ORDERED: ONDANSETRON 4 MG/2 ML INJ IV PRN (19:23)
[2021-05-20] MEDS ORDERED: METOCLOPRAMIDE 10 MG/2 ML INJ IV PRN (19:23)
[2021-05-20] MEDS: HYDROmorphone 1 MG/1 ML INJ IV PRN (19:44)
[2021-05-20] MEDS ORDERED: LACTULOSE ENEMA 1000 ML PR PRN ×2 (19:48→22:00)
[2021-05-20] MEDS ORDERED: VANCOMYCIN PHARMACY TO DOSE IV SCH (20:00)
[2021-05-20] MEDS ORDERED: VANCOMYCIN 750 MG in SODIUM CHLORIDE 0.9% 250ML 250 ML IV SCH (21:30)
[2021-05-21] MEDS: HYDROmorphone 1 MG/1 ML INJ IV PRN ×5 (01:29→20:03)
[2021-05-21] MEDS: AMPICILLIN/SULBACTA 3GM/100ML 3 GM/100 ML BAG IV SCH ×2 (03:02→03:03)
[2021-05-21] MEDS: FAMOTIDINE 20 MG TAB PO SCH ×3 (03:02→21:47)
[2021-05-21] MEDS: HEPARIN 5,000 UNIT/1 ML VIAL SUB-Q SCH ×3 (03:02→21:48)
[2021-05-21] MEDS: SODIUM CHLORIDE 0.9% 1000 ML 1,000 ML IV SCH (03:03)
[2021-05-21 05:05] LABS: Basophils % (Auto) 0.5 % (0.0-1.8); Eosinophils # (Auto) 0.1 K/mm3 (0.0-0.4); Eosinophils % (Auto) 1.2 % (0.0-4.3); Hematocrit 26.4 % (35.5-45.6); Hemoglobin 8.5 gm/dl (11.8-15.2); Lymphocytes # (Auto) 1.5 K/mm3 (1.2-5.4); Lymphocytes % (Auto) 23.1 % (13.4-35.0); Mean Corpuscular HGB Conc 32 % (32-34); Mean Corpuscular Volume 84 fl (84-94); Monocytes # (Auto) 0.8 K/mm3 (0.0-0.8); Platelet Count 545 K/mm3 (140-440); Red Blood Count 3.14 M/mm3 (3.65-5.03); Red Cell Distribution Width 18.7 % (13.2-15.2)
[2021-05-21 05:27] LABS: Alanine Aminotransferase 24 units/L (7-56); Albumin 2.1 g/dL (3.9-5); Blood Urea Nitrogen 23 mg/dL (9-20); Calcium 7.8 mg/dL (8.4-10.2); Hemolysis Index 1
[2021-05-21 05:35] LABS: BUN/Creatinine Ratio 77
--- NOTE | 2021-05-21 06:29 | History and Physical Report ---
History of Present Illness Date of examination: 05/20/21 Date of admission: 05/20/21 19:23 Chief complaint: Abdominal pain for 3 days History of present illness: 45-year-old male with multiple medical problems including cirrhosis secondary to hepatitis C, chronic sacral decubitus ulcer, bilateral above-knee amputation and lymphoma in remission comes in for 3 days of nausea and vomiting. No bowel movement. Patient states stated his been constipated for the last 1 month. He did have some coffee-ground emesis. Patient is a very poor historian. Abdominal pain is diffuse and sometimes sharp and stabbing. Pain is about 8 on a scale of 1-10. No voluntary in the last 76 to 100 hours. Patient also has a sacral decubitus ulcer which is stage IV and being taken care at home on. Patient states that his mother takes care of him. Patient stays at home and not 0n a assisted living long term or halfway facility. No fever or chills. Very poor historian. ED course--patient has extensive decubitus ulcers on the left hip region right h ip region sacral region and lower spine region which made debridement and extensive IV antibiotics possibly 6 to 8 weeks. Also ID consult and surgical consult requested. - Past Medical History --Liver Disease: Yes (Cirrhosis, Hep C) --Additional medical history: spine cancer status post radiation (lymphoma in remission), Chronic Wounds left leg, hips and sacrum, Hep B, Hep C, lymphoma - Surgical History --Appendectomy: Yes --Additional Surgical History: 3 back surg per pt. - Family History Family history: hypertension - Social History --Smoking Status: Smoker, Current Status Unknown - Medications --Home Medications: Home Medications Medication Instructions Recorded Confirmed Last Taken Type levoFLOXacin [Levaquin TAB] 500 mg PO BID #20 tablet 01/18/19 03/11/21 Unknown Rx Review of Systems ROS: Stated complaint: WEAKNESS/SECONDARY N&V Other details as noted in HPI Comment: All other systems reviewed and negative Constitutional: denies: fever Eyes: denies: vision change ENT: denies: throat pain Respiratory: denies: cough Cardiovascular: denies: chest pain Endocrine: denies: unexplained weight loss Gastrointestinal: as per HPI Genitourinary: denies: dysuria Musculoskeletal: denies: back pain Skin: denies: rash Neurological: denies: headache Hematological/Lymphatic: denies: easy bruising Medications and Allergies Allergies Allergy/AdvReac Type Severity Reaction Status Date / Time mariam mushroom AdvReac Swelling Verified 08/01/14 18:30 Home Medications Medication Instructions Recorded Confirmed Last Taken Type levoFLOXacin [Levaquin TAB] 500 mg PO BID #20 tablet 01/18/19 05/21/21 2 Days Ago Rx ~05/19/21 Active Meds: Active Medications Acetaminophen (Acetaminophen 325 Mg Tab) 650 mg PO Q4H PRN PRN Reason: Pain MILD(1-3)/Fever >100.5/MORGAN Famotidine (Famotidine 20 Mg Tab) 20 mg PO BID [facility] Last Admin: 05/21/21 03:02 Dose: Not Given Heparin Sodium (Porcine) (Heparin 5,000 Unit/1 Ml Vial) 5,000 unit SUB-Q Q12HR [facility] Last Admin: 05/21/21 03:02 Dose: Not Given Hydromorphone HCl (Hydromorphone 1 Mg/1 Ml Inj) 0.5 mg IV Q3H PRN PRN Reason: Pain , Severe (7-10) Last Admin: 05/21/21 04:37 Dose: 0.5 mg Sodium Chloride (Nacl 0.9% 1000 Ml) 1,000 mls @ 75 mls/hr IV DIRECT [facility] Last Admin: 05/21/21 03:03 Dose: 75 mls/hr Ampicillin Sodium/Sulbactam Sodium (Unasyn/Ns 3 Gm/100 Ml) 3 gm in 100 mls @ 100 mls/hr IV Q6H [facility]; Protocol Last Admin: 05/21/21 03:03 Dose: 100 mls/hr Vancomycin HCl 750 mg/ Sodium (Chloride) 265 mls @ 132.5 mls/hr IV Q24H [facility] Last Admin: 05/21/21 04:22 Dose: 132.5 mls/hr Lactulose (Lactulose Enema 1000 Ml) 200 gm NC Q6H PRN PRN Reason: CONSTIPATION Metoclopramide HCl (Metoclopramide 10 Mg/2 Ml Inj) 10 mg IV Q6H PRN PRN Reason: Nausea And Vomiting Ondansetron HCl (Ondansetron 4 Mg/2 Ml Inj) 4 mg IV Q3H PRN PRN Reason: Nausea And Vomiting Oxycodone/Acetaminophen (Oxycodone /Acetaminophen 5-325mg Tab) 1 tab PO Q6H PRN PRN Reason: Pain, Moderate (4-6) Sodium Chloride (Sodium Chloride 0.9% 10 Ml Flush Syringe) 10 ml IV BID [facility] Last Admin: 05/21/21 05:25 Dose: Not Given Sodium Chloride (Sodium Chloride 0.9% 10 Ml Flush Syringe) 10 ml IV PRN PRN PRN Reason: LINE FLUSH Exam - Constitutional Vitals: Temp Pulse Resp BP Pulse Ox 98.1 F 86 19 108/61 96 05/21/21 04:10 05/21/21 04:10 05/21/21 04:10 05/21/21 04:10 05/21/21 04:10 General appearance: Present: mild distress, well-nourished - EENT Eyes: Present: PERRL ENT: hearing intact, clear oral mucosa - Neck Neck: Present: supple, normal ROM - Respiratory Respiratory effort: normal Respiratory: bilateral: CTA - Cardiovascular Heart rate: 88 Rhythm: regular Heart Sounds: Present: S1 & S2. Absent: rub, click - Extremities Extremities: pulses symmetrical, No edema, abnormal (Bilateral above-knee amputation) Extremity abnormal: ulceration (Stage IV decubitus ulcers on the sacrum), other (Bilateral above-knee amputation) Peripheral Pulses: within normal limits - Abdominal General gastrointestinal: Present: soft, non-tender, non-distended, normal bowel sounds Male genitourinary: Present: normal - Integumentary Integumentary: Present: clear, warm, dry - Musculoskeletal Musculoskeletal: gait normal, strength equal bilaterally - Psychiatric Psychiatric: appropriate mood/affect, intact judgment & insight - Neurologic Neurologic: CNII-XII intact, moves all extremities Results - Labs CBC & Chem 7: 05/21/21 04:22 05/21/21 04:22 Labs: Laboratory Last Values WBC 6.5 K/mm3 (4.5-11.0) 05/21/21 04:22 RBC 3.14 M/mm3 (3.65-5.03) L 05/21/21 04:22 Hgb 8.5 gm/dl (11.8-15.2) L 05/21/21 04:22 Hct 26.4 % (35.5-45.6) L 05/21/21 04:22 MCV 84 fl (84-94) 05/21/21 04:22 MCH 27 pg (28-32) L 05/21/21 04:22 MCHC 32 % (32-34) 05/21/21 04:22 RDW 18.7 % (13.2-15.2) H 05/21/21 04:22 Plt Count 545 K/mm3 (140-440) H 05/21/21 04:22 Lymph % (Auto) 23.1 % (13.4-35.0) 05/21/21 04:22 [place]dwell % (Auto) 13.0 % (0.0-7.3) H 05/21/21 04:22 Eos % (Auto) 1.2 % (0.0-4.3) 05/21/21 04:22 Baso % (Auto) 0.5 % (0.0-1.8) 05/21/21 04:22 Lymph # (Auto) 1.5 K/mm3 (1.2-5.4) 05/21/21 04:22 [place]dwell # (Auto) 0.8 K/mm3 (0.0-0.8) 05/21/21 04:22 Eos # (Auto) 0.1 K/mm3 (0.0-0.4) 05/21/21 04:22 Baso # (Auto) 0.0 K/mm3 (0.0-0.1) 05/21/21 04:22 Seg Neutrophils % 62.2 % (40.0-70.0) 05/21/21 04:22 Seg Neutrophils # 4.0 K/mm3 (1.8-7.7) 05/21/21 04:22 Sodium 132 mmol/L (137-145) L 05/21/21 04:22 Potassium 3.4 mmol/L (3.6-5.0) L 05/21/21 04:22 Chloride 98.4 mmol/L (98-107) 05/21/21 04:22 Carbon Dioxide 23 mmol/L (22-30) 05/21/21 04:22 Anion Gap 14 mmol/L 05/21/21 04:22 BUN 23 mg/dL (9-20) H 05/21/21 04:22 Creatinine 0.3 mg/dL (0.8-1.3) L 05/21/21 04:22 Estimated GFR > 60 ml/min 05/21/21 04:22 BUN/Creatinine Ratio 77 % 05/21/21 04:22 Glucose 91 mg/dL (75-100) 05/21/21 04:22 Calcium 7.8 mg/dL (8.4-10.2) L 05/21/21 04:22 Total Bilirubin 0.20 mg/dL (0.1-1.2) 05/21/21 04:22 AST 39 units/L (5-40) 05/21/21 04:22 ALT 24 units/L (7-56) 05/21/21 04:22 Alkaline Phosphatase 167 units/L (35-129) H 05/21/21 04:22 Total Protein 4.9 g/dL (6.3-8.2) L 05/21/21 04:22 Albumin 2.1 g/dL (3.9-5) L 05/21/21 04:22 Albumin/Globulin Ratio 0.8 % 05/21/21 04:22 Lipase 8 units/L (13-60) L 05/20/21 12:37 Short CBC 05/20/21 05/21/21 Range/Units 12:37 04:22 WBC 9.9 6.5 (4.5-11.0) K/mm3 Hgb 10.2 L 8.5 L (11.8-15.2) gm/dl Hct 32.1 L 26.4 L (35.5-45.6) % Plt Count 692 H 545 H (140-440) K/mm3 BMP 05/20/21 05/21/21 12:37 04:22 Sodium 135 L 132 L Potassium 4.1 3.4 L Chloride 95.7 L 98.4 Carbon Dioxide 21 L 23 BUN 32 H 23 H Creatinine 0.6 L 0.3 L Glucose 117 H 91 Calcium 8.4 7.8 L Liver Function 05/20/21 05/21/21 Range/Units 12:37 04:22 Total Bilirubin 0.30 0.20 (0.1-1.2) mg/dL AST 47 H 39 (5-40) units/L ALT 31 24 (7-56) units/L Alkaline Phosphatase 211 H 167 H (35-129) units/L Albumin 2.6 L 2.1 L (3.9-5) g/dL - Imaging and Cardiology Imaging and Cardiology: And pelvic CAT scan CT evidence of constipation with a possible secondary ileus. No other acute findings. Bilateral lower lobe atelectasis versus pneumonia. Addendum Marked destruction of the ribs is noted with erosion of the right femoral head and posterior subluxation of the remainder of the right hip related to the acetabulum. Sclerotic changes along the inferior sacrum/coccyx. The posterior ring of the left iliac bone and the left inferior pubic rami likely related to lumbar chronic osteomyelitis. David/IV: Voiding Method Suprapubic catheter Assessment and Plan Advance Directives: Yes - Patient Problems (1) Systemic inflammatory response syndrome Current Visit: Yes Status: Acute Plan to address problem: Patient on IV Unasyn and IV vancomycin (2) Decubitus ulcer of left hip, stage 4 Current Visit: Yes Status: Acute Plan to address problem: Photographs of all the decubitus ulcers are on the chart Ulcers on the left hip right hip sacrum and lower spine . IV antibiotics and ID consult for antibiotic choice also surgery consult For possible debridement. Wounds are extensive and the prognosis is very poor (3) Decubitus ulcer of right hip, stage 4 Current Visit: Yes Status: Acute Plan to address problem: Patient has extensive stage IV decubitus ulcer on the right hip 6 cm x 5 cm with a depth of about 1.5 cm Purulent discharge present There may be underlying osteomyelitis Patient initiated on IV Unasyn and IV vancomycin patient may need long-term IV antibiotics and wound care follow-up Surgery consult requested (4) Sacral decubitus ulcer, stage IV Current Visit: Yes Status: Chronic Plan to address problem: Stage III to stage IV sacral decubitus ulcer 7 cm X 6 cm X 3 mm depth No purulent discharge Surgery consult requested (5) Ileus Current Visit: Yes Status: Acute Plan to address problem: Patient has severe constipation with resultant ileus Lactulose enemas for the time being Gastrografin enema if necessary (6) Anemia Current Visit: Yes Status: Acute Plan to address problem: Anemia of chronic disease Anemia work-up (7) Malnutrition Current Visit: Yes Status: Chronic Qualifiers: Protein-calorie malnutrition severity: moderate Plan to address problem: Patient initiated on dietary supplements 3 times a day (8) DVT prophylaxis Current Visit: No Status: Acute Plan to address problem: IV heparin and GI prophylaxis (9) Advance care planning Current Visit: Yes Status: Acute Plan to address problem: Disease education conducted, care plan discussed, diagnosis discussed, prognosis discussed. Patient is full code. Patient acknowledges understanding and agreement with care plan. +30 minutes.
[2021-05-21] MEDS ORDERED: METOCLOPRAMIDE 10 MG/2 ML INJ IV PRN (08:00)
--- NOTE | 2021-05-21 11:19 | Consultation ---
History of Present Illness - Reason for Consult Consult date: 05/21/21 - History of Present Illness 45-year-old male past medical history cirrhosis secondary to hep C, chronic sacral pressure ulcer, bilateral above-knee amputations, lymphoma in remission presented complaining of nausea and vomiting. This began approximately 3 days prior to admission and was associated with constipation. He also notes coffee- ground emesis over this timeframe. Complains of abdominal pain as well. He was seen by us in February with similar issues concerning his wounds, however since that timeframe he has had bilateral above-knee amputations. Afebrile since admission with a white count of 6.5. Normal renal function. No cultures available at present. Currently on vancomycin and Unasyn. Imaging personally reviewed: CT abdomen pelvis: Constipation with secondary ileus. No other acute findings. Review of Systems: Bold if positive, otherwise negative General: fevers, chills, rigors HEENT: visual disturbance, diplopia, eye pain Respiratory: cough, sputum, hemoptysis, shortness of breath Cardiovascular: chest pain, syncope Gastrointestinal: nausea, vomiting, diarrhea, abdominal pain Genitourinary: dysuria, hematuria, flank pain Musculoskeletal: neck pain, back pain, joint pain, edema Neurologic: headaches, seizures Hematologic: easy bruising or bleeding Endocrine: night sweats, acute weight loss Skin: rash, jaundice, redness Psychiatric: suicidal, homicidal ideation Past History Past Medical History: other (see HPI) Past Surgical History: Other (Bilateral AKA) Social history: lives with family Family history: hypertension Medications and Allergies Allergies Allergy/AdvReac Type Severity Reaction Status Date / Time shiitake mushroom AdvReac Swelling Verified 05/21/21 07:34 Home Medications Medication Instructions Recorded Confirmed Last Taken Type levoFLOXacin [Levaquin TAB] 500 mg PO BID #20 tablet 01/18/19 05/21/21 2 Days Ago Rx ~05/19/21 Active Meds: Active Medications Acetaminophen (Acetaminophen 325 Mg Tab) 650 mg PO Q4H PRN PRN Reason: Pain MILD(1-3)/Fever >100.5/MORGAN Famotidine (Famotidine 20 Mg Tab) 20 mg PO BID [facility] Last Admin: 05/21/21 09:23 Dose: 20 mg Heparin Sodium (Porcine) (Heparin 5,000 Unit/1 Ml Vial) 5,000 unit SUB-Q Q12HR [facility] Last Admin: 05/21/21 09:23 Dose: 5,000 unit Hydromorphone HCl (Hydromorphone 1 Mg/1 Ml Inj) 0.5 mg IV Q3H PRN PRN Reason: Pain , Severe (7-10) Last Admin: 05/21/21 04:37 Dose: 0.5 mg Sodium Chloride (Nacl 0.9% 1000 Ml) 1,000 mls @ 75 mls/hr IV DIRECT [facility] Last Admin: 05/21/21 03:03 Dose: 75 mls/hr Vancomycin HCl (Vancomycin/Ns 1 Gm/250 Ml) 1 gm in 250 mls @ 167.007 mls/hr IV Q24H [facility] Ampicillin Sodium/Sulbactam Sodium (Unasyn/Ns 1.5 Gm/50 Ml) 1.5 gm in 50 mls @ 100 mls/hr IV Q6HR [facility] Ketorolac Tromethamine (Ketorolac 30 Mg/1 Ml Inj) 15 mg IV Q6H PRN PRN Reason: Pain, Mild (1-3) Stop: 05/26/21 09:45 Lactulose (Lactulose Enema 1000 Ml) 200 gm NV Q6H PRN PRN Reason: CONSTIPATION Metoclopramide HCl (Metoclopramide 10 Mg/2 Ml Inj) 5 mg IV Q6H PRN PRN Reason: Nausea And Vomiting Ondansetron HCl (Ondansetron 4 Mg/2 Ml Inj) 4 mg IV Q3H PRN PRN Reason: Nausea And Vomiting Oxycodone/Acetaminophen (Oxycodone /Acetaminophen 5-325mg Tab) 1 tab PO Q6H PRN PRN Reason: Pain, Moderate (4-6) Sodium Chloride (Sodium Chloride 0.9% 10 Ml Flush Syringe) 10 ml IV BID [facility] Last Admin: 05/21/21 09:24 Dose: 10 ml Sodium Chloride (Sodium Chloride 0.9% 10 Ml Flush Syringe) 10 ml IV PRN PRN PRN Reason: LINE FLUSH Physical Examination - Physical Exam Narrative exam: Physical Exam: Constitutional: Alert, cooperative. No acute distress Head, Ears, Nose: Normocephalic, atraumatic. External ears, nose normal Eyes: Conjunctivae/corneas clear. No icterus. No ptosis. Neck: Supple, no meningeal signs Oral: dentition fair, no thrush Cardiovascular: S1, S2 normal. Respiratory: Good air entry, clear to auscultation bilaterally GI: Soft, non-tender; bowel sounds normal. No peritoneal signs. Musculoskeletal: Bilateral AKA with wili in place, chronic sacral and spine wounds Skin: No rash or abscess Hem/Lymphatic: No palpable cervical or supraclavicular nodes. No lymphangitis Psych: Mood ok. Affect normal Neurological: Awake, alert, oriented. No gross abnormality - Constitutional Vitals: Vital Signs Temp Pulse Resp BP Pulse Ox 98.1 F 86 19 108/61 97 05/21/21 04:10 05/21/21 04:10 05/21/21 04:10 05/21/21 04:10 05/21/21 10:00 Temperature -Last 24 Hours Temperature 98.1 F Temperature 98.9 F Temperature 98.1 F Temperature 98.6 F Results - Labs CBC & Chem 7: 05/21/21 04:22 05/21/21 04:22 Labs: Abnormal lab results 05/20/21 05/20/21 05/21/21 Range/Units 12:37 12:37 04:22 RBC 3.14 L (3.65-5.03) M/mm3 Hgb 10.2 L 8.5 L (11.8-15.2) gm/dl Hct 32.1 L 26.4 L (35.5-45.6) % MCH 27 L 27 L (28-32) pg RDW 19.0 H 18.7 H (13.2-15.2) % Plt Count 692 H 545 H (140-440) K/mm3 Lymph % (Auto) 10.2 L (13.4-35.0) % [place] % (Auto) 10.3 H 13.0 H (0.0-7.3) % Lymph # (Auto) 1.0 L (1.2-5.4) K/mm3 [place] # (Auto) 1.0 H (0.0-0.8) K/mm3 Seg Neutrophils % 78.9 H (40.0-70.0) % Seg Neutrophils # 7.8 H (1.8-7.7) K/mm3 Sodium 135 L (137-145) mmol/L Potassium (3.6-5.0) mmol/L Chloride 95.7 L (98-107) mmol/L Carbon Dioxide 21 L (22-30) mmol/L BUN 32 H (9-20) mg/dL Creatinine 0.6 L (0.8-1.3) mg/dL Glucose 117 H (75-100) mg/dL Calcium (8.4-10.2) mg/dL AST 47 H (5-40) units/L Alkaline Phosphatase 211 H (35-129) units/L Total Protein 5.8 L (6.3-8.2) g/dL Albumin 2.6 L (3.9-5) g/dL Lipase 8 L (13-60) units/L 05/21/21 Range/Units 04:22 RBC (3.65-5.03) M/mm3 Hgb (11.8-15.2) gm/dl Hct (35.5-45.6) % MCH (28-32) pg RDW (13.2-15.2) % Plt Count (140-440) K/mm3 Lymph % (Auto) (13.4-35.0) % [place] % (Auto) (0.0-7.3) % Lymph # (Auto) (1.2-5.4) K/mm3 [place] # (Auto) (0.0-0.8) K/mm3 Seg Neutrophils % (40.0-70.0) % Seg Neutrophils # (1.8-7.7) K/mm3 Sodium 132 L (137-145) mmol/L Potassium 3.4 L (3.6-5.0) mmol/L Chloride (98-107) mmol/L Carbon Dioxide (22-30) mmol/L BUN 23 H (9-20) mg/dL Creatinine 0.3 L (0.8-1.3) mg/dL Glucose (75-100) mg/dL Calcium 7.8 L (8.4-10.2) mg/dL AST (5-40) units/L Alkaline Phosphatase 167 H (35-129) units/L Total Protein 4.9 L (6.3-8.2) g/dL Albumin 2.1 L (3.9-5) g/dL Lipase (13-60) units/L Assessment and Plan Cultures: none A/P: 45-year-old male past medical history cirrhosis secondary to hep C, chronic sacral pressure ulcer, bilateral above-knee amputations, lymphoma in remission now with: #Chronic sacral spine wounds: CT scan without evidence soft tissue infection or gas production. Given his chronic debility and continued wounds, would likely not treat for prolonged course for any osteomyelitis. Pending surgical consult for possible debridement of wounds. #Bilateral AKA: Appears to be healing well, wili remain in place. No evidence of infection at present. #Hepatitis B and C: ordered DNA/RNA at previous visit, but do not see results. No evidence of transaminitis #Ileus Recs: -Stopped Unasyn in favour of cefepime/metronidazole given historical presence of Acinetobacter and Enterobacter. -Continue vancomycin for now. -Follow up general surgery consult. -Given lack of sepsis unlikely to treat for prolonged period. Thank you for the consult, we will continue to follow. MD Elvin [facility] ([facility]) O: [phone] F: [phone]
--- NOTE | 2021-05-21 11:37 | Progress Note ---
Assessment and Plan Assessment and plan: #Systemic inflammatory response syndrome #Stage IV sacral decubitus ulcer of left hip #Stage IV sacral decubitus ulcer of right hip Likely secondary to multiple sacral decubitus ulcers Continue Unasyn and vancomycin Infectious disease consulted; appreciate recs General surgery consulted for possible debridement; pending recs Overall poor prognosis. Patient requesting hospice services; case management made aware. #Ileus versus bowel obstruction Patient endorsing severe constipation as well as nausea and vomiting Currently consuming clear liquids. Continue antiemetics. Continue lactulose enemas General surgery consulted; pending recs #Anemia of chronic disease Hemoglobin 8.5 Pending anemia work-up Transfuse if hemoglobin <7 or patient becomes symptomatic #Moderate protein caloric malnutrition Nutrition consulted; pending recs Continue dietary supplements 3 times daily #Advanced care planning -Disease education conducted, care plan discussed, diagnoses discussed, prog nosis discussed, and patient acknowledges understanding with care plan -Time: +30 min Disposition Plan: Continue medical management Total Time Spent with Patient (Minutes): 45 minutes History Interval history: No acute events overnight. Hospitalist Physical - Constitutional Vitals: Temp Pulse Resp BP Pulse Ox 98.1 F 86 19 108/61 97 05/21/21 04:10 05/21/21 04:10 05/21/21 04:10 05/21/21 04:10 05/21/21 10:00 General appearance: Present: mild distress, well-nourished - EENT Eyes: Present: PERRL, EOM intact ENT: hearing intact, clear oral mucosa - Neck Neck: Present: supple, normal ROM - Respiratory Respiratory effort: normal Respiratory: bilateral: CTA - Cardiovascular Rhythm: regular Heart Sounds: Present: S1 & S2 - Extremities Extremities: abnormal (Bilateral above the knee amputations; stage IV sacral decubitus ulcers on bilateral hips and along spine) Peripheral Pulses: within normal limits - Abdominal General gastrointestinal: soft, non-tender, non-distended, normal bowel sounds - Integumentary Integumentary: Present: clear, warm - Psychiatric Psychiatric: appropriate mood/affect, cooperative - Neurologic Neurologic: CNII-XII intact, moves all extremities - Allied Health Allied health notes reviewed: nursing Results - Labs CBC & Chem 7: 05/21/21 04:22 05/21/21 04:22 Labs: Laboratory Last Values WBC 6.5 K/mm3 (4.5-11.0) 05/21/21 04:22 RBC 3.14 M/mm3 (3.65-5.03) L 05/21/21 04:22 Hgb 8.5 gm/dl (11.8-15.2) L 05/21/21 04:22 Hct 26.4 % (35.5-45.6) L 05/21/21 04:22 MCV 84 fl (84-94) 05/21/21 04:22 MCH 27 pg (28-32) L 05/21/21 04:22 MCHC 32 % (32-34) 05/21/21 04:22 RDW 18.7 % (13.2-15.2) H 05/21/21 04:22 Plt Count 545 K/mm3 (140-440) H 05/21/21 04:22 Lymph % (Auto) 23.1 % (13.4-35.0) 05/21/21 04:22 [place] % (Auto) 13.0 % (0.0-7.3) H 05/21/21 04:22 Eos % (Auto) 1.2 % (0.0-4.3) 05/21/21 04:22 Baso % (Auto) 0.5 % (0.0-1.8) 05/21/21 04:22 Lymph # (Auto) 1.5 K/mm3 (1.2-5.4) 05/21/21 04:22 [place] # (Auto) 0.8 K/mm3 (0.0-0.8) 05/21/21 04:22 Eos # (Auto) 0.1 K/mm3 (0.0-0.4) 05/21/21 04:22 Baso # (Auto) 0.0 K/mm3 (0.0-0.1) 05/21/21 04:22 Seg Neutrophils % 62.2 % (40.0-70.0) 05/21/21 04:22 Seg Neutrophils # 4.0 K/mm3 (1.8-7.7) 05/21/21 04:22 Sodium 132 mmol/L (137-145) L 05/21/21 04:22 Potassium 3.4 mmol/L (3.6-5.0) L 05/21/21 04:22 Chloride 98.4 mmol/L (98-107) 05/21/21 04:22 Carbon Dioxide 23 mmol/L (22-30) 05/21/21 04:22 Anion Gap 14 mmol/L 05/21/21 04:22 BUN 23 mg/dL (9-20) H 05/21/21 04:22 Creatinine 0.3 mg/dL (0.8-1.3) L 05/21/21 04:22 Estimated GFR > 60 ml/min 05/21/21 04:22 BUN/Creatinine Ratio 77 % 05/21/21 04:22 Glucose 91 mg/dL (75-100) 05/21/21 04:22 Calcium 7.8 mg/dL (8.4-10.2) L 05/21/21 04:22 Total Bilirubin 0.20 mg/dL (0.1-1.2) 05/21/21 04:22 AST 39 units/L (5-40) 05/21/21 04:22 ALT 24 units/L (7-56) 05/21/21 04:22 Alkaline Phosphatase 167 units/L (35-129) H 05/21/21 04:22 Total Protein 4.9 g/dL (6.3-8.2) L 05/21/21 04:22 Albumin 2.1 g/dL (3.9-5) L 05/21/21 04:22 Albumin/Globulin Ratio 0.8 % 05/21/21 04:22 Lipase 8 units/L (13-60) L 05/20/21 12:37 David/IV: Voiding Method Suprapubic catheter Active Medications - Current Medications Current Medications: Generic Name Dose Route Start Last Admin Trade Name Freq PRN Reason Stop Dose Admin Acetaminophen 650 mg 05/20/21 19:23 Acetaminophen 325 Mg Tab PO Q4H PRN Pain MILD(1-3)/Fever >100.5/MORGAN Famotidine 20 mg 05/20/21 22:00 05/21/21 09:23 Famotidine 20 Mg Tab PO 20 mg BID VERENICE Administration Heparin Sodium (Porcine) 5,000 unit 05/20/21 22:00 05/21/21 09:23 Heparin 5,000 Unit/1 Ml Vial SUB-Q 5,000 unit Q12HR VERENCIE Administration Hydromorphone HCl 0.5 mg 05/20/21 19:23 05/21/21 04:37 Hydromorphone 1 Mg/1 Ml Inj IV 0.5 mg Q3H PRN Administration Pain , Severe (7-10) Sodium Chloride 1,000 mls @ 75 mls/hr 05/20/21 19:30 05/21/21 03:03 Nacl 0.9% 1000 Ml IV 75 mls/hr DIRECT VERENICE Administration Vancomycin HCl 1 gm in 250 mls @ 167.007 mls/hr 05/22/21 00:00 Vancomycin/Ns 1 Gm/250 Ml IV Q24H VERENICE Ampicillin Sodium/Sulbactam Sodium 1.5 gm in 50 mls @ 100 mls/hr 05/21/21 12:00 05/21/21 11:25 Unasyn/Ns 1.5 Gm/50 Ml IV 100 mls/hr Q6HR VERENICE Administration Ketorolac Tromethamine 15 mg 05/21/21 09:46 Ketorolac 30 Mg/1 Ml Inj IV 05/26/21 09:45 Q6H PRN Pain, Mild (1-3) Lactulose 200 gm 05/20/21 22:00 Lactulose Enema 1000 Ml [place] Q6H PRN CONSTIPATION Metoclopramide HCl 5 mg 05/21/21 08:00 Metoclopramide 10 Mg/2 Ml Inj IV Q6H PRN Nausea And Vomiting Ondansetron HCl 4 mg 05/20/21 19:23 Ondansetron 4 Mg/2 Ml Inj IV Q3H PRN Nausea And Vomiting Oxycodone/Acetaminophen 1 tab 05/20/21 19:23 Oxycodone /Acetaminophen 5-325mg Tab PO Q6H PRN Pain, Moderate (4-6) Sodium Chloride 10 ml 05/20/21 22:00 05/21/21 09:24 Sodium Chloride 0.9% 10 Ml Flush Syringe IV 10 ml BID VERENICE Administration Sodium Chloride 10 ml 05/20/21 19:23 Sodium Chloride 0.9% 10 Ml Flush Syringe IV PRN PRN LINE FLUSH
[2021-05-21] MEDS ORDERED: AMPICILLIN/SULBACTA 1.5GM/50ML 1.5 GM/50 ML BAG IV SCH (12:00)
[2021-05-21 13:04] LABS: Iron 15 ug/dL (49-181); Total Iron Binding Capacity 120 mcg/dL (250-450)
[2021-05-21] MEDS: CEFEPIME/NS 2 GM/100 ML 2 GM/100 ML BAG IV SCH ×2 (13:19→20:03)
[2021-05-21] MEDS: metroNIDAZOLE 500 MG TAB PO SCH ×2 (13:19→21:47)
[2021-05-22] MEDS: VANCOMYCIN/NS 1 GM/250 ML 1 GM/250 ML BAG IV SCH ×2 (00:17→23:35)
[2021-05-22] MEDS: CEFEPIME/NS 2 GM/100 ML 2 GM/100 ML BAG IV SCH ×3 (04:40→20:24)
[2021-05-22] MEDS: SODIUM CHLORIDE 0.9% 1000 ML 1,000 ML IV SCH (05:02)
[2021-05-22] MEDS: metroNIDAZOLE 500 MG TAB PO SCH ×3 (05:02→21:40)
[2021-05-22 05:19] LABS: Basophils % (Auto) 0.7 % (0.0-1.8); Eosinophils # (Auto) 0.1 K/mm3 (0.0-0.4); Eosinophils % (Auto) 1.7 % (0.0-4.3); Hemoglobin 8.8 gm/dl (11.8-15.2); Lymphocytes # (Auto) 1.6 K/mm3 (1.2-5.4); Lymphocytes % (Auto) 27.7 % (13.4-35.0); Mean Corpuscular HGB Conc 31 % (32-34); Mean Corpuscular Volume 84 fl (84-94); Monocytes # (Auto) 0.8 K/mm3 (0.0-0.8); Monocytes % (Auto) 14.3 % (0.0-7.3); Platelet Count 590 K/mm3 (140-440); Red Blood Count 3.33 M/mm3 (3.65-5.03); Red Cell Distribution Width 18.6 % (13.2-15.2)
[2021-05-22 05:35] LABS: Alanine Aminotransferase 24 units/L (7-56); Blood Urea Nitrogen 15 mg/dL (9-20); Calcium 7.2 mg/dL (8.4-10.2); Hemolysis Index 5
[2021-05-22 05:41] LABS: BUN/Creatinine Ratio 50
[2021-05-22] MEDS: HYDROmorphone 1 MG/1 ML INJ IV PRN ×5 (05:52→23:53)
[2021-05-22] MEDS: FAMOTIDINE 20 MG TAB PO SCH ×3 (08:29→21:40)
[2021-05-22] MEDS: HEPARIN 5,000 UNIT/1 ML VIAL SUB-Q SCH ×3 (08:29→21:40)
[2021-05-22] MEDS: KETOROLAC 30 MG/1 ML INJ IV PRN ×2 (08:29→20:38)
[2021-05-22] MEDS ORDERED: PHENOL 1.4% 177 ML BOTTLE MM PRN (10:12)
--- NOTE | 2021-05-22 12:56 | Progress Note ---
Assessment and Plan Assessment and plan: #Systemic inflammatory response syndrome #Stage IV sacral decubitus ulcer of left hip #Stage IV sacral decubitus ulcer of right hip Likely secondary to multiple sacral decubitus ulcers Continue Unasyn and vancomycin Infectious disease consulted; appreciate recs General surgery consulted for possible debridement; pending recs Overall poor prognosis. Patient requesting hospice services; case management made aware. #Ileus versus bowel obstruction Patient endorsing severe constipation as well as nausea and vomiting Currently consuming clear liquids. Continue antiemetics. Continue lactulose enemas General surgery consulted; pending recs #Anemia of chronic disease Hemoglobin 8.5 Pending anemia work-up Transfuse if hemoglobin <7 or patient becomes symptomatic #Moderate protein caloric malnutrition Nutrition consulted; appreciate recs Continue dietary supplements 3 times daily #Advanced care planning -Disease education conducted, care plan discussed, diagnoses discussed, p rognosis discussed, and patient acknowledges understanding with care plan -Time: +30 min #Discharge planning - Patient is pending resolution of ileus - Case management has been made aware. Disposition Plan: Continue medical management Total Time Spent with Patient (Minutes): 30 min History Interval history: No acute events overnight. Hospitalist Physical - Constitutional Vitals: Temp Pulse Resp BP Pulse Ox 97.3 F L 78 16 92/58 97 05/22/21 04:56 05/22/21 04:56 05/22/21 04:56 05/22/21 04:56 05/22/21 04:56 General appearance: Present: mild distress, well-nourished - EENT Eyes: Present: PERRL, EOM intact ENT: hearing intact, poor dentition, edentulous - Neck Neck: Present: supple, normal ROM - Respiratory Respiratory effort: normal Respiratory: bilateral: CTA - Cardiovascular Rhythm: regular Heart Sounds: Present: S1 & S2 - Extremities Extremities: abnormal (Bilateral above-knee amputations multiple stage IV sacral decubitus ulcers on spine and bilateral hips) Peripheral Pulses: within normal limits - Abdominal General gastrointestinal: tender, non-distended, rigid, hypoactive bowel sounds Localized gastrointestinal: tender: diffuse - Integumentary Integumentary: Present: clear, warm - Psychiatric Psychiatric: appropriate mood/affect, cooperative - Neurologic Neurologic: CNII-XII intact - Allied Health Allied health notes reviewed: nursing Results - Labs CBC & Chem 7: 05/22/21 04:42 05/22/21 04:42 Labs: Laboratory Last Values WBC 5.8 K/mm3 (4.5-11.0) 05/22/21 04:42 RBC 3.33 M/mm3 (3.65-5.03) L 05/22/21 04:42 Hgb 8.8 gm/dl (11.8-15.2) L 05/22/21 04:42 Hct 28.0 % (35.5-45.6) L 05/22/21 04:42 MCV 84 fl (84-94) 05/22/21 04:42 MCH 26 pg (28-32) L 05/22/21 04:42 MCHC 31 % (32-34) L 05/22/21 04:42 RDW 18.6 % (13.2-15.2) H 05/22/21 04:42 Plt Count 590 K/mm3 (140-440) H 05/22/21 04:42 Lymph % (Auto) 27.7 % (13.4-35.0) 05/22/21 04:42 [place] % (Auto) 14.3 % (0.0-7.3) H 05/22/21 04:42 Eos % (Auto) 1.7 % (0.0-4.3) 05/22/21 04:42 Baso % (Auto) 0.7 % (0.0-1.8) 05/22/21 04:42 Lymph # (Auto) 1.6 K/mm3 (1.2-5.4) 05/22/21 04:42 [place] # (Auto) 0.8 K/mm3 (0.0-0.8) 05/22/21 04:42 Eos # (Auto) 0.1 K/mm3 (0.0-0.4) 05/22/21 04:42 Baso # (Auto) 0.0 K/mm3 (0.0-0.1) 05/22/21 04:42 Seg Neutrophils % 55.6 % (40.0-70.0) 05/22/21 04:42 Seg Neutrophils # 3.2 K/mm3 (1.8-7.7) 05/22/21 04:42 Sodium 134 mmol/L (137-145) L 05/22/21 04:42 Potassium 3.4 mmol/L (3.6-5.0) L 05/22/21 04:42 Chloride 102.7 mmol/L (98-107) 05/22/21 04:42 Carbon Dioxide 25 mmol/L (22-30) 05/22/21 04:42 Anion Gap 10 mmol/L 05/22/21 04:42 BUN 15 mg/dL (9-20) 05/22/21 04:42 Creatinine 0.3 mg/dL (0.8-1.3) L 05/22/21 04:42 Estimated GFR > 60 ml/min 05/22/21 04:42 BUN/Creatinine Ratio 50 % 05/22/21 04:42 Glucose 90 mg/dL (75-100) 05/22/21 04:42 Calcium 7.2 mg/dL (8.4-10.2) L 05/22/21 04:42 Iron 15 ug/dL (49-181) L 05/21/21 04:55 TIBC 120 mcg/dL (250-450) L 05/21/21 04:55 Total Bilirubin 0.20 mg/dL (0.1-1.2) 05/22/21 04:42 AST 43 units/L (5-40) H 05/22/21 04:42 ALT 24 units/L (7-56) 05/22/21 04:42 Alkaline Phosphatase 200 units/L (35-129) H 05/22/21 04:42 Total Protein 4.9 g/dL (6.3-8.2) L 05/22/21 04:42 Albumin 2.0 g/dL (3.9-5) L 05/22/21 04:42 Albumin/Globulin Ratio 0.7 % 05/22/21 04:42 Lipase 8 units/L (13-60) L 05/20/21 12:37 David/IV: Voiding Method Indwelling Catheter Active Medications - Current Medications Current Medications: Generic Name Dose Route Start Last Admin Trade Name Freq PRN Reason Stop Dose Admin Acetaminophen 650 mg 05/20/21 19:23 Acetaminophen 325 Mg Tab PO Q4H PRN Pain MILD(1-3)/Fever >100.5/MORGAN Famotidine 20 mg 05/20/21 22:00 05/22/21 08:29 Famotidine 20 Mg Tab PO 20 mg BID VERENICE Administration Heparin Sodium (Porcine) 5,000 unit 05/20/21 22:00 05/22/21 08:29 Heparin 5,000 Unit/1 Ml Vial SUB-Q 5,000 unit Q12HR VERENICE Administration Hydromorphone HCl 0.5 mg 05/20/21 19:23 05/22/21 10:08 Hydromorphone 1 Mg/1 Ml Inj IV 0.5 mg Q3H PRN Administration Pain , Severe (7-10) Sodium Chloride 1,000 mls @ 75 mls/hr 05/20/21 19:30 05/22/21 05:02 Nacl 0.9% 1000 Ml IV 75 mls/hr DIRECT VERENICE Administration Vancomycin HCl 1 gm in 250 mls @ 167.007 mls/hr 05/22/21 00:00 05/22/21 00:17 Vancomycin/Ns 1 Gm/250 Ml IV 167.007 mls/hr Q24H VERENICE Administration Cefepime HCl 2 gm in 100 mls @ 200 mls/hr 05/21/21 12:00 05/22/21 04:40 Cefepime/Ns 2 Gm/100 Ml IV 200 mls/hr Q8H VERENICE Administration Protocol Ketorolac Tromethamine 15 mg 05/21/21 09:46 05/22/21 08:29 Ketorolac 30 Mg/1 Ml Inj IV 05/26/21 09:45 15 mg Q6H PRN Administration Pain, Mild (1-3) Lactulose 200 gm 05/22/21 12:00 Lactulose Enema 1000 Ml [place] Q6HR [facility] Metoclopramide HCl 5 mg 05/21/21 08:00 Metoclopramide 10 Mg/2 Ml Inj IV Q6H PRN Nausea And Vomiting Metronidazole 500 mg 05/21/21 14:00 05/22/21 05:02 Metronidazole 500 Mg Tab PO 500 mg Q8HR [facility]ENICE Administration Protocol Ondansetron HCl 4 mg 05/20/21 19:23 Ondansetron 4 Mg/2 Ml Inj IV Q3H PRN Nausea And Vomiting Oxycodone/Acetaminophen 1 tab 05/20/21 19:23 Oxycodone /Acetaminophen 5-325mg Tab PO Q6H PRN Pain, Moderate (4-6) Phenol 1 spray 05/22/21 10:12 Phenol 1.4% 177 Ml Bottle MM PRN PRN Sore Throat Sodium Chloride 10 ml 05/20/21 22:00 05/22/21 10:11 Sodium Chloride 0.9% 10 Ml Flush Syringe IV 10 ml BID VERENICE Administration Sodium Chloride 10 ml 05/20/21 19:23 Sodium Chloride 0.9% 10 Ml Flush Syringe IV PRN PRN LINE FLUSH Nutrition/Malnutrition Assess - Dietary Evaluation Nutrition/Malnutrition Findings: Nutrition Notes Start: 05/21/21 16:20 Freq: Status: Active Protocol: Document 05/21/21 16:20 MICHELLE (Rec: 05/21/21 17:00 MICHELLE [id number]) Nutrition Notes 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 Current Diet Clear Liquids Diet (since D ), D Suppl (since B 05/21). Labs/Tests 05/21: Na 132, K 3.4, BUN 23, Crea 0.3, Ca 7.8. Pertinent Medications 05/21: Nutritionally unremarkable. Height 5 ft 9 in Weight 59 kg [place] Body Weight (kg) 72.72 BMI 19.2 Weight change and time frame Pt denies having loss body weight PAD HAND. Ht & Wt correction for Bilateral AKA: Ht (from Pt over the phone)= 5 ' 9" Wt (11.6% factor for AKA)= 59 Kg Weight Status Appropriate Subjective/Other Information RD consult for Poor Oral Intake, skin risk assessment and Dietary Supplementation assessment. No reports available on Pt's PO intake at the time. Pt states having N/V/ and abdominal pain for a month, along with constipation, according to Progress notes. Pt has very recent bilateral AKA, according to Progress notes and admission documents. Pt has several decubitus pressure ulcers stage IV ( Sacral and R&L-Hip), according to Progress notes and admission documents. Pt has spine cancer s/p radiation theraphy (Lymphoma in remission), according to Progress notes. Percent of energy/protein needs met: Prescribed Clear Liquids Diet provides for energy/protein needs (590 Kcal/16 g) during LOS; additionally, Dietary Supplements will compensate for possible poor or insufficient PO intake of meals and support wound healing processes, with 910 Kcal and 29 g of protein. Burn Absent Trauma Absent GI Symptoms Nausea,Vomiting,Constipation Food Allergy Yes Skin Integrity/Comment Several Decubitus stage IV. Minimum of two criteria No #1 Nutrition Diagnosis Increased nutrient needs ( specify in comment below) Comments: Protein to support wound healing processes. Etiology Pt being bedbound. As Evidenced by Signs and Symptoms Pt has several decubitus pressure ulcers stage IV ( Sacral and R&L-Hip), according to Progress notes and admission documents. Is patient on ventilator? No Is Patient Ambulatory and/or Out of Bed No REE-([facility]-confined to bed) 1750.260 Calculation Used for Recommendations Kcal/kg Additional Notes Protein: 1.25-1.5 g/Kg ABW; 56 -68 g/day. Fluids: 1 ml/Kcal, or as per MD. Nutrition Intervention Change Diet Order: Continue Clear Liquids Diet. Add Supplement/Snack (indicate name/kcal 8 fl oz Ensure Clear; TID. /protein ) 28.8 g pkt Kwan; BID. Provides kCal: 910 Provides Protein (gm) 29 Goal #1 Support, through dietary supplementation, wound healing processes during LOS. Goal #2 Compensate, through dietary supplementation, for possible poor or insufficient PO intake of meals during LOS. Goal #3 Maintain body weight within +/ -3% of admission body weight during LOS. Follow-Up By: 05/28/21 Additional Comments Continue monitoring food tolerance, %PO intake of meals , and BM.
[2021-05-22] MEDS: LACTULOSE ENEMA 1000 ML PR SCH ×2 (14:03→20:10)
--- NOTE | 2021-05-22 14:30 | Progress Note ---
Assessment and Plan Cultures: none A/P: 45-year-old male past medical history cirrhosis secondary to hep C, chronic sacral pressure ulcer, bilateral above-knee amputations, lymphoma in remission now with: #Chronic sacral spine wounds: CT scan without evidence soft tissue infection or gas production. Given his chronic debility and continued wounds, would likely not treat for prolonged course for any osteomyelitis. Pending surgical consult for possible debridement of wounds. #Bilateral AKA: Appears to be healing well, wili remain in place. No e vidence of infection at present. #Hepatitis B and C: ordered DNA/RNA at previous visit, but do not see results. No evidence of transaminitis #Ileus Recs: -Stopped Unasyn in favour of cefepime/metronidazole given historical presence of Acinetobacter and Enterobacter. -Continue vancomycin for now. -Follow up general surgery consult. -Given lack of sepsis unlikely to treat for prolonged period. -Okay to discharge with doxycycline 100 milligrams every 12 hours to treat potential surface staph or strep infection. Complete [address] Webb Thank you for the consult, we will continue to follow. Emily Umana MD [facility] ([facility]) O: [phone] F: [phone] Subjective Date of service: 05/22/21 Interval history: Afebrile, normal white count. Patient to be discharged home with hospice. Objective - Exam Narrative Exam: Physical Exam: Constitutional: Alert, cooperative. No acute distress Head, Ears, Nose: Normocephalic, atraumatic. External ears, nose normal Eyes: Conjunctivae/corneas clear. No icterus. No ptosis. Neck: Supple, no meningeal signs Oral: dentition fair, no thrush Cardiovascular: S1, S2 normal. Respiratory: Good air entry, clear to auscultation bilaterally GI: Soft, non-tender; bowel sounds normal. No peritoneal signs. Musculoskeletal: Bilateral AKA with wili in place, chronic sacral and spine wounds Skin: No rash or abscess Hem/Lymphatic: No palpable cervical or supraclavicular nodes. No lymphangitis Psych: Mood ok. Affect normal Neurological: Awake, alert, oriented. No gross abnormality - Constitutional Vitals: Vital Signs Temp Pulse Resp BP Pulse Ox 97.3 F L 78 16 92/58 97 05/22/21 04:56 05/22/21 04:56 05/22/21 04:56 05/22/21 04:56 05/22/21 04:56 Temperature -Last 24 Hours Temperature 97.3 F Temperature 98.0 F Temperature 98.5 F - Labs CBC & Chem 7: 05/22/21 04:42 05/22/21 04:42 Labs: Abnormal lab results 05/22/21 05/22/21 Range/Units 04:42 04:42 RBC 3.33 L (3.65-5.03) M/mm3 Hgb 8.8 L (11.8-15.2) gm/dl Hct 28.0 L (35.5-45.6) % MCH 26 L (28-32) pg MCHC 31 L (32-34) % RDW 18.6 H (13.2-15.2) % Plt Count 590 H (140-440) K/mm3 Schleicher % (Auto) 14.3 H (0.0-7.3) % Sodium 134 L (137-145) mmol/L Potassium 3.4 L (3.6-5.0) mmol/L Creatinine 0.3 L (0.8-1.3) mg/dL Calcium 7.2 L (8.4-10.2) mg/dL AST 43 H (5-40) units/L Alkaline Phosphatase 200 H (35-129) units/L Total Protein 4.9 L (6.3-8.2) g/dL Albumin 2.0 L (3.9-5) g/dL
--- NOTE | 2021-05-22 15:38 | Cat Scan Report ---
CT ABDOMEN AND PELVIS WITHOUT CONTRAST INDICATION / CLINICAL INFORMATION: abd pain. TECHNIQUE: Axial CT images were obtained through the abdomen and pelvis without IV contrast. All CT scans at this location are performed using CT dose reduction for ALARA by means of automated exposure control. COMPARISON: CT dated 05/20/2021 FINDINGS: LOWER CHEST: Trace bibasilar pleural effusions and prominent bibasilar airspace consolidation with ai r bronchograms. There are also patchy subpleural groundglass opacities within the partially imaged an terior upper lobes bilaterally. LIVER: No significant abnormality GALLBLADDER/BILIARY TREE: Probable layering sludge in the gallbladder. No evidence of cholecystitis. No biliary dilatation. PANCREAS: No significant abnormality SPLEEN: No significant abnormality ADRENALS: No significant abnormality KIDNEYS / URETER: No significant abnormality URINARY BLADDER: Decompressed by suprapubic catheter. REPRODUCTIVE ORGANS: No significant abnormality STOMACH / BOWEL: Large amount stool is present within the colon, most pronounced within the sigmoid a nd rectum. No significant mural thickening of the colon to suggest stercoral colitis. Unchanged moder ate generalized distention of the colon with diffuse primarily gaseous distention of the stomach and small bowel, likely related ileus. LYMPH NODES: No significant adenopathy. VASCULATURE: Mild atherosclerotic calcification without acute abnormality. OTHER: Small volume free fluid in the upper abdomen. No free air or organized collection. There is di ffuse anasarca, most pronounced within the pelvis and proximal thighs. No organized collection. SKELETAL SYSTEM: Marked destruction of the hips and posterior right acetabulum/ischial tuberosity as well as the distal sacrum and coccyx, unchanged. Findings are consistent with chronic osteoarthritis. No evidence of acute process. IMPRESSION: 1. Similar findings of constipation with rectal fecal impaction and secondary ileus. No evidence of m ural thickening or perirectal/pericolonic inflammatory stranding to suggest stercoral colitis. 2. Bibasilar pneumonia. 3. No other acute findings. Other chronic and incidental findings as above. Signer Name: Donnell Saavedra MD Signed: 05/22/2021 3:26 PM Workstation Name: [id number]
[2021-05-22] MEDS: DEXTROSE 5% IN WATER 1,000 ML IV SCH (18:25)
[2021-05-23] MEDS: LACTULOSE ENEMA 1000 ML PR SCH ×3 (00:11→13:13)
[2021-05-23] MEDS: CEFEPIME/NS 2 GM/100 ML 2 GM/100 ML BAG IV SCH ×2 (03:38→12:26)
[2021-05-23] MEDS: KETOROLAC 30 MG/1 ML INJ IV PRN (05:33)
[2021-05-23] MEDS: DEXTROSE 5% IN WATER 1,000 ML IV SCH (05:34)
[2021-05-23 06:14] LABS: Basophils # (Auto) 0.1 K/mm3 (0.0-0.1); Basophils % (Auto) 1.8 % (0.0-1.8); Eosinophils # (Auto) 0.2 K/mm3 (0.0-0.4); Eosinophils % (Auto) 3.3 % (0.0-4.3); Hematocrit 29.5 % (35.5-45.6); Hemoglobin 9.7 gm/dl (11.8-15.2); Lymphocytes # (Auto) 1.3 K/mm3 (1.2-5.4); Lymphocytes % (Auto) 20.4 % (13.4-35.0); Mean Corpuscular HGB Conc 33 % (32-34); Mean Corpuscular Volume 84 fl (84-94); Monocytes # (Auto) 0.6 K/mm3 (0.0-0.8); Monocytes % (Auto) 9.4 % (0.0-7.3); Platelet Count 613 K/mm3 (140-440); Red Blood Count 3.51 M/mm3 (3.65-5.03); Red Cell Distribution Width 18.6 % (13.2-15.2)
[2021-05-23] MEDS: metroNIDAZOLE 500 MG TAB PO SCH ×2 (06:20→13:17)
[2021-05-23 06:25] LABS: INR 1.1 (0.87-1.13)
[2021-05-23 06:35] LABS: Alanine Aminotransferase 20 units/L (7-56); Blood Urea Nitrogen 8 mg/dL (9-20); Calcium 7.3 mg/dL (8.4-10.2); Hemolysis Index 2
[2021-05-23 06:37] LABS: BUN/Creatinine Ratio 27
--- NOTE | 2021-05-23 07:59 | Consultation ---
History of Present Illness Consult date: 05/23/21 Reason for consult: abdominal pain (Constipation with bowel obstruction) - History of present illness History of present illness: This is a 45-year-old male patient with multiple medical problems he said a history of lymphoma he has poor medical compliance he has had peripheral vascular disease requiring bilateral AKA amputations. His amputations were completed 4 or 5 days ago by patient's history at [facility]. He states that he had abdominal pain and distention then a CT scan was performed but not revealed or reported to him. On during this current admission patient is noted to have a CT scan with marked small bowel and colonic distention and a fecal impaction. Repeat CT scan of the abdomen and pelvis done yesterday shows some improvement of the impaction in response to the small-volume lactulose enemas that have been given. Past History Past Medical History: other (see HPI) Past Surgical History: Other (Bilateral AKA) Social history: lives with family Family history: hypertension Medications and Allergies Allergies Allergy/AdvReac Type Severity Reaction Status Date / Time shiitake mushroom AdvReac Swelling Verified 05/21/21 07:34 Home Medications Medication Instructions Recorded Confirmed Last Taken Type ALPRAZolam [Xanax TAB] 0.25 mg PO BID PRN 05/21/21 05/21/21 Unknown History Aspirin EC [Halfprin EC] 81 mg PO QDAY 05/21/21 05/21/21 Unknown History Clotrimazole 1% [Lotrimin] 1 applic TP BID 05/21/21 05/21/21 Unknown History Cyclobenzaprine [Flexeril] 10 mg PO TID PRN 05/21/21 05/21/21 Unknown History Docusate Sodium [Dok] 100 mg PO QDAY 05/21/21 05/21/21 Unknown History HYDROmorphone [Dilaudid] 2 mg PO Q6HR PRN 05/21/21 05/21/21 Unknown History Oxybutynin [Ditropan] 5 mg PO BID 05/21/21 05/21/21 Unknown History Oxycodone HCl/Acetaminophen 1 tab PO Q4H PRN 05/21/21 05/21/21 Unknown History [Percocet 10/325 mg] Pantoprazole [Protonix] 40 mg PO QDAY 05/21/21 05/21/21 Unknown History Sennosides [Senna] 8.6 mg PO HS PRN 05/21/21 05/21/21 Unknown History Active Meds: Active Medications Acetaminophen (Acetaminophen 325 Mg Tab) 650 mg PO Q4H PRN PRN Reason: Pain MILD(1-3)/Fever >100.5/MORGAN Famotidine (Famotidine 20 Mg Tab) 20 mg PO BID [facility] Last Admin: 05/22/21 21:40 Dose: 20 mg Heparin Sodium (Porcine) (Heparin 5,000 Unit/1 Ml Vial) 5,000 unit SUB-Q Q12HR [facility] Last Admin: 05/22/21 21:40 Dose: 5,000 unit Hydromorphone HCl (Hydromorphone 1 Mg/1 Ml Inj) 0.5 mg IV Q3H PRN PRN Reason: Pain , Severe (7-10) Last Admin: 05/22/21 23:53 Dose: 0.5 mg Vancomycin HCl (Vancomycin/Ns 1 Gm/250 Ml) 1 gm in 250 mls @ 167.007 mls/hr IV Q24H [facility] Last Admin: 05/22/21 23:35 Dose: 167.007 mls/hr Cefepime HCl (Cefepime/Ns 2 Gm/100 Ml) 2 gm in 100 mls @ 200 mls/hr IV Q8H [facility]; Protocol Last Admin: 05/23/21 03:38 Dose: 200 mls/hr Dextrose (D5w) 1,000 mls @ 125 mls/hr IV DIRECT VERENICE Last Admin: 05/23/21 05:34 Dose: 125 mls/hr Potassium Chloride (Kcl 10meq/100ml) 10 meq in 100 mls @ 100 mls/hr IV Q1H [facility] Stop: 05/23/21 12:59 Ketorolac Tromethamine (Ketorolac 30 Mg/1 Ml Inj) 15 mg IV Q6H PRN PRN Reason: Pain, Mild (1-3) Stop: 05/26/21 09:45 Last Admin: 05/23/21 05:33 Dose: 15 mg Lactulose (Lactulose Enema 1000 Ml) 200 gm MI Q6HR [facility] Last Admin: 05/23/21 06:19 Dose: Not Given Metoclopramide HCl (Metoclopramide 10 Mg/2 Ml Inj) 5 mg IV Q6H PRN PRN Reason: Nausea And Vomiting Metronidazole (Metronidazole 500 Mg Tab) 500 mg PO Q8HR [facility]; Protocol Last Admin: 05/23/21 06:20 Dose: Not Given Ondansetron HCl (Ondansetron 4 Mg/2 Ml Inj) 4 mg IV Q3H PRN PRN Reason: Nausea And Vomiting Oxycodone/Acetaminophen (Oxycodone /Acetaminophen 5-325mg Tab) 1 tab PO Q6H PRN PRN Reason: Pain, Moderate (4-6) Phenol (Phenol 1.4% 177 Ml Bottle) 1 spray MM PRN PRN PRN Reason: Sore Throat Sodium Chloride (Sodium Chloride 0.9% 10 Ml Flush Syringe) 10 ml IV BID [facility] Last Admin: 05/22/21 21:41 Dose: 10 ml Sodium Chloride (Sodium Chloride 0.9% 10 Ml Flush Syringe) 10 ml IV PRN PRN PRN Reason: LINE FLUSH Exam Vital Signs Temp Pulse Resp BP Pulse Ox 98.6 F 47 L 16 150/81 98 05/20/21 12:09 05/20/21 12:09 05/20/21 12:09 05/20/21 12:09 05/20/21 12:09 - General physical appearance Positive: no distress - Eyes Positive: PERRL - Neck Positive: no masses, no bruits, trachea midline - Cardiovascular Rhythm: regular - Extremities Extremity abnormal: other (Bilateral AKA amputations with wili in place no soft tissue wound infection) - Abdomen Abdomen: Present: other (Abdomen is firm tender to palpation) - Integumentary other (Also full hip and sacral decubiti are present. Hip decubitus with bone at the base.) Results - Labs 05/23/21 05:44 05/23/21 05:44 Abnormal lab results 05/23/21 05/23/21 05/23/21 Range/Units 05:44 05:44 05:44 RBC 3.51 L (3.65-5.03) M/mm3 Hgb 9.7 L (11.8-15.2) gm/dl Hct 29.5 L (35.5-45.6) % RDW 18.6 H (13.2-15.2) % Plt Count 613 H (140-440) K/mm3 Levy % (Auto) 9.4 H (0.0-7.3) % PT 15.5 H (12.2-14.9) Sec. Sodium 135 L (137-145) mmol/L Potassium 3.2 L (3.6-5.0) mmol/L BUN 8 L (9-20) mg/dL Creatinine 0.3 L (0.8-1.3) mg/dL Calcium 7.3 L (8.4-10.2) mg/dL Alkaline Phosphatase 193 H (35-129) units/L Total Protein 5.0 L (6.3-8.2) g/dL Albumin 2.0 L (3.9-5) g/dL Diabetes panel 05/23/21 Range/Units 05:44 Sodium 135 L (137-145) mmol/L Potassium 3.2 L (3.6-5.0) mmol/L Chloride 103.0 (98-107) mmol/L Carbon Dioxide 24 (22-30) mmol/L BUN 8 L (9-20) mg/dL Creatinine 0.3 L (0.8-1.3) mg/dL Glucose 97 (75-100) mg/dL Calcium 7.3 L (8.4-10.2) mg/dL AST 28 (5-40) units/L ALT 20 (7-56) units/L Alkaline Phosphatase 193 H (35-129) units/L Total Protein 5.0 L (6.3-8.2) g/dL Albumin 2.0 L (3.9-5) g/dL Calcium panel 05/23/21 Range/Units 05:44 Calcium 7.3 L (8.4-10.2) mg/dL Albumin 2.0 L (3.9-5) g/dL Pituitary panel 05/23/21 Range/Units 05:44 Sodium 135 L (137-145) mmol/L Potassium 3.2 L (3.6-5.0) mmol/L Chloride 103.0 (98-107) mmol/L Carbon Dioxide 24 (22-30) mmol/L BUN 8 L (9-20) mg/dL Creatinine 0.3 L (0.8-1.3) mg/dL Glucose 97 (75-100) mg/dL Calcium 7.3 L (8.4-10.2) mg/dL Adrenal panel 05/23/21 Range/Units 05:44 Sodium 135 L (137-145) mmol/L Potassium 3.2 L (3.6-5.0) mmol/L Chloride 103.0 (98-107) mmol/L Carbon Dioxide 24 (22-30) mmol/L BUN 8 L (9-20) mg/dL Creatinine 0.3 L (0.8-1.3) mg/dL Glucose 97 (75-100) mg/dL Calcium 7.3 L (8.4-10.2) mg/dL Total Bilirubin 0.30 (0.1-1.2) mg/dL AST 28 (5-40) units/L ALT 20 (7-56) units/L Alkaline Phosphatase 193 H (35-129) units/L Total Protein 5.0 L (6.3-8.2) g/dL Albumin 2.0 L (3.9-5) g/dL Assessment and Plan Patient with chronic constipation continue enemas. Limit p.o. intake for now. Consider TPN at this time. Continue local wound care as you are doing. We will continue to follow patient with you. Fecal diversion to an ostomy was discussed with the patient. At this time he is still thinking about proceeding. The obstruction itself can be managed with t he enemas. However continued fecal incontinence and intermittent bowel obstructions will interfere with his chronic wound care and quality of life issues.
[2021-05-23] MEDS: HYDROmorphone 1 MG/1 ML INJ IV PRN (09:22)
[2021-05-23] MEDS: POTASSIUM CHLORIDE 10 MEQ 10 MEQ/100 ML BAG IV SCH ×4 (09:38→14:00)
[2021-05-23] MEDS: FAMOTIDINE 20 MG TAB PO SCH (10:34)
[2021-05-23] MEDS: HEPARIN 5,000 UNIT/1 ML VIAL SUB-Q SCH (10:34)
--- NOTE | 2021-05-23 10:45 | Progress Note ---
Assessment and Plan Cultures: none A/P: 45-year-old male past medical history cirrhosis secondary to hep C, chronic sacral pressure ulcer, bilateral above-knee amputations, lymphoma in remission now with: #Chronic sacral spine wounds: CT scan without evidence soft tissue infection or gas production. Given his chronic debility and continued wounds, would likely not treat for prolonged course for any osteomyelitis. Pending surgical consult for possible debridement of wounds. #Bilateral AKA: Appears to be healing well, wili remain in place. No e vidence of infection at present. #Hepatitis B and C: ordered DNA/RNA at previous visit, but do not see results. No evidence of transaminitis #Ileus: with fecal impaction Recs: -Continue cefepime/metronidazole given historical presence of Acinetobacter and Enterobacter. -Continue vancomycin for now. -Given lack of sepsis unlikely to treat for prolonged period. -Okay to discharge with doxycycline 100 milligrams every 12 hours to treat potential surface staph or strep infection. Complete [address] eWbb Thank you for the consult, we will continue to follow. Emily Umana MD [facility] ([facility]) O: [phone] F: [phone] Subjective Date of service: 05/23/21 Interval history: Afebrile, normal white count. Imaging personally reviewed: CTAP: ongoing fecal impaction Objective - Exam Narrative Exam: Physical Exam: Constitutional: Alert, cooperative. No acute distress Head, Ears, Nose: Normocephalic, atraumatic. External ears, nose normal Eyes: Conjunctivae/corneas clear. No icterus. No ptosis. Neck: Supple, no meningeal signs Oral: dentition fair, no thrush Cardiovascular: S1, S2 normal. Respiratory: Good air entry, clear to auscultation bilaterally GI: Soft, non-tender; bowel sounds normal. No peritoneal signs. Musculoskeletal: Bilateral AKA with wili in place, chronic sacral and spine wounds Skin: No rash or abscess Hem/Lymphatic: No palpable cervical or supraclavicular nodes. No lymphangitis Psych: Mood ok. Affect normal Neurological: Awake, alert, oriented. No gross abnormality - Constitutional Vitals: Vital Signs Temp Pulse Resp BP Pulse Ox 98.4 F 69 18 90/59 98 05/23/21 04:55 05/23/21 04:55 05/23/21 04:55 05/23/21 04:55 05/23/21 05:00 Temperature -Last 24 Hours Temperature 98.4 F Temperature 97.8 F Temperature 97.4 F - Labs CBC & Chem 7: 05/23/21 05:44 05/23/21 05:44 Labs: Abnormal lab results 05/23/21 05/23/21 05/23/21 Range/Units 05:44 05:44 05:44 RBC 3.51 L (3.65-5.03) M/mm3 Hgb 9.7 L (11.8-15.2) gm/dl Hct 29.5 L (35.5-45.6) % RDW 18.6 H (13.2-15.2) % Plt Count 613 H (140-440) K/mm3 Wheeler % (Auto) 9.4 H (0.0-7.3) % PT 15.5 H (12.2-14.9) Sec. Sodium 135 L (137-145) mmol/L Potassium 3.2 L (3.6-5.0) mmol/L BUN 8 L (9-20) mg/dL Creatinine 0.3 L (0.8-1.3) mg/dL Calcium 7.3 L (8.4-10.2) mg/dL Alkaline Phosphatase 193 H (35-129) units/L Total Protein 5.0 L (6.3-8.2) g/dL Albumin 2.0 L (3.9-5) g/dL
--- NOTE | 2021-05-23 12:31 | Discharge Summary ---
Providers - Providers Date of Admission: 05/20/21 19:23 Date of discharge: 05/23/21 Attending physician: FERNY COATS MD 05/20/21 19:23 Consult to Physician [CONS] Routine Comment: Consulting Provider: BRIAN LUCIO Physician Instructions: Reason For Exam: Sacral Decubitus ulcer 05/21/21 04:11 Consult to Dietitian/Nutrition [CONS] Routine Physician Instructions: Reason For Exam: Reason for Consult: Poor oral intake 05/21/21 06:56 Consult to Physician [CONS] Routine Comment: Consulting Provider: MICHAEL ROSADO Physician Instructions: Reason For Exam: Multiple decubitus ulcers/osteomyelitis Primary care physician: SCRIPT COORDINATOR Hospitalization Reason for admission: SIRS, ileus, stage IV sacral decubitus ulcer of hips and spine Condition: Stable Pertinent studies: Reviewed. Procedures: None. Hospital course: 45-year-old male with multiple medical problems including cirrhosis secondary to hepatitis C, chronic sacral decubitus ulcer, bilateral above-knee amputation and lymphoma in remission comes in for 3 days of nausea and vomiting without any bowel movements. The patient states that he has been constipated for the last month, and he endorsed having some coffee-ground emesis. Patient is a very poor historian. He describes the pain as an 8 out of 10. Patient was also found to have multiple stage IV sacral decubitus ulcers on his hips and spine that he was taking care of at home. CT abdomen/pelvis with contrast (05/20/2021) revealed a probable secondary ileus in the setting of significant constipation. Patient was started on clear liquids with antiemetics, and he was started on Unasyn and vancomycin for antibiotic coverage of his sacral decubitus ulcers. General surgery was consulted as well as infectious disease. General surgery recommended placement of an NG tube with likely diverting colostomy in the setting of a rigid abdomen; however, the patient declined both recommendations. The patient continues to endorse that he wants to go home with hospice. Infectious disease discontinued Unasyn and started cefepime and Flagyl in addition to vancomycin. Due to the patient being discharged, he will be transitioned to p.o. doxycycline 100 mg every 12 hours for 7-day course. Case management was consulted, and hospice has been set up for the patient. The patient is medically ready for discharge. Disposition: 50 HOSPICE/HOME Final Discharge Diagnosis (Prints w/discharge instructions): Systemic inflammatory response syndrome, stage IV sacral decubitus ulcer of left hip, stage IV sacral decubitus ulcer of right hip, ileus, anemia of chronic disease, moderate protein caloric malnutrition Time spent for discharge: 45 min Core Measure Documentation - Palliative Care Palliative Care/ Comfort Measures: Hospice Care - Core Measures Any of the following diagnoses?: none Exam - Constitutional Vitals: Temp Pulse Resp BP Pulse Ox 98.4 F 69 18 90/59 98 05/23/21 04:55 05/23/21 04:55 05/23/21 04:55 05/23/21 04:55 05/23/21 05:00 General appearance: Present: mild distress, cachectic, disheveled - EENT Eyes: Present: PERRL, EOM intact ENT: hearing intact, poor dentition, edentulous - Neck Neck: Present: supple, normal ROM - Respiratory Respiratory effort: normal Respiratory: bilateral: CTA - Cardiovascular Rhythm: regular Heart Sounds: Present: S1 & S2 - Extremities Extremities: No edema, abnormal (Bilateral [id number] amputations; stage IV sacral decubitus ulcers of hips and spine) Peripheral Pulses: within normal limits - Abdominal General gastrointestinal: Present: tender, non-distended, rigid, hypoactive bowel sounds Male genitourinary: Present: deferred - Rectal Rectal Exam: deferred - Integumentary Integumentary: Present: clear, warm, dry - Psychiatric Psychiatric: agitated, other (Uncooperative; poor historian) - Neurologic Neurologic: CNII-XII intact - Allied Health Allied health notes reviewed: nursing Plan Activity: advance as tolerated Diet: regular Additional Instructions: 45-year-old male with multiple medical problems including cirrhosis secondary to hepatitis C, chronic sacral decubitus ulcer, bilateral above-knee amputation and lymphoma in remission comes in for 3 days of nausea and vomiting without any bowel movements. The patient states that he has been constipated for the last month, and he endorsed having some coffee-ground emesis. Patient is a very poor historian. He describes the pain as an 8 out of 10. Patient was also found to have multiple stage IV sacral decubitus ulcers on his hips and spine that he was taking care of at home. CT abdomen/pelvis with contrast (05/20/2021) revealed a probable secondary ileus in the setting of significant constipation. Patient was started on clear liquids with antiemetics, and he was started on Unasyn and vancomycin for antibiotic coverage of his sacral decubitus ulcers. General surgery was consulted as well as infectious disease. General surgery recommended placement of an NG tube with likely diverting colostomy in the setting of a rigid abdomen; however, the patient declined both recommendations. The patient continues to endorse that he wants to go home with hospice. Infectious disease discontinued Unasyn and started cefepime and Flagyl in addition to vancomycin. Due to the patient being discharged, he will be transitioned to p.o. doxycycline 100 mg every 12 hours for 7-day course. Case management was consulted, and hospice has been set up for the patient. The patient is medically ready for discharge. Care Plan Goals: Patient is medically clear for discharge. Assessment: 45-year-old male with multiple medical problems including cirrhosis secondary to hepatitis C, chronic sacral decubitus ulcer, bilateral above-knee amputation and lymphoma in remission comes in for 3 days of nausea and vomiting without any bowel movements. The patient states that he has been constipated for the last month, and he endorsed having some coffee-ground emesis. Patient is a very poor historian. He describes the pain as an 8 out of 10. Patient was also found to have multiple stage IV sacral decubitus ulcers on his hips and spine that he was taking care of at home. CT abdomen/pelvis with contrast (05/20/2021) revealed a probable secondary ileus in the setting of significant constipation. Patient was started on clear liquids with antiemetics, and he was started on Unasyn and vancomycin for antibiotic coverage of his sacral decubitus ulcers. General surgery was consulted as well as infectious disease. General surgery recommended placement of an NG tube with likely diverting colostomy in the setting of a rigid abdomen; however, the patient declined both recommendations. The patient continues to endorse that he wants to go home with hospice. Infectious disease discontinued Unasyn and started cefepime and Flagyl in addition to vancomycin. Due to the patient being discharged, he will be transitioned to p.o. doxycycline 100 mg every 12 hours for 7-day course. Case management was consulted, and hospice has been set up for the patient. The patient is medically ready for discharge. Follow up with: PRIMARY CAREMD [Primary Care Provider] - 3-5 Days Prescriptions: Doxycycline Hyclate [Doxycycline Hyclate TAB] 100 mg PO Q12HR #14 tab
[2021-05-23 17:56] VITALS: BP 117/82
== END 2021-05-23 18:00 | disposition hospice, home (50) | DRG 388 ==
LOC: ED 11:53 → 3A 19:23
PROVIDERS: ADMIT Internal Medicine; ATTEND Student in an Organized Health Care Education/Training Program
DX: K56.7 Ileus, unspecified (principal); L89.224 Pressure ulcer of left hip, stage 4; L89.214 Pressure ulcer of right hip, stage 4; L89.154 Pressure ulcer of sacral region, stage 4; R65.10 Systemic inflammatory response syndrome (SIRS) of non-infectious origin without acute organ dysfunction; E44.0 Moderate protein-calorie malnutrition; Z88.8 Allergy status to other drugs, medicaments and biological substances; F17.200 Nicotine dependence, unspecified, uncomplicated; K74.60 Unspecified cirrhosis of liver; B19.20 Unspecified viral hepatitis C without hepatic coma; R53.81 Other malaise; D63.8 Anemia in other chronic diseases classified elsewhere; Z68.1 Body mass index [BMI] 19.9 or less, adult; Z89.512 Acquired absence of left leg below knee; Z89.511 Acquired absence of right leg below knee; Z82.49 Family history of ischemic heart disease and other diseases of the circulatory system
CPT/HCPCS: 36415; 74176; 74177; 80053; 83550; 83690; 85025; 85610; G0378; Q0162; J0295; J0692; J1170; J1644; J1885; J2765; J3010; J3370; J3480; J7030; J7050; J7070; J7120; Q9967